=== PATIENT | male | born 1950 | race Caucasian/White ===

== ENCOUNTER → 2020-05-08 08:17 | Outpatient (CLI) | payer MEDICARE, OTHER, SELFPAY ==
--- NOTE | 2020-05-08 08:20 | ART_ITS ---
Reason For Study: Pain in right toe Procedure A bilateral lower extremity continuous wave Doppler with analog waveform analysis,segmental pressures,and ankle brachial indexes without exercise. Left Segmental Pressures Left brachial= 135mmHg. Left posterior tibial artery = >254mmHg. Left dorsalis pedis artery = >254mmHg. Left digit = 111 mmHg. The left dorsalis pedis waveforms are triphasic. The left posterior tibial artery waveforms are triphasic. Right Segmental Pressures Right brachial= 145mmHg. Right posterior tibial artery = >254mmHg. Right dorsalis pedis artery = >254mmHg. Right digit = 130 mmHg. The right dorsalis pedis waveforms are triphasic. The right posterior tibial artery waveforms are triphasic. Indices The right ankle brachial index by the dorsalis pedis is NC. The right ankle brachial index by the posterior tibial artery is NC. The right digital-brachial index is 0.90. The left ankle brachial index by the dorsalis pedis is NC. The left ankle brachial index by the posterior tibial artery is NC. The left digital-brachial index is 0.77. Interpretation Summary Triphasic Doppler waveforms are noted at ankle level bilaterally. Pulse-volume recordings appear satisfactory at all levels bilaterally. Resting ankle-brachial indices could not be determined on either side due to the non-compressibility of the vasculature. Digital-brachial indices are normal bilaterally. There is evidence of arterial calcification at ankle level bilaterally. There is no evidence of arterial occlusive diease in the lower extremities bilaterally. Ordering Physician: Keegan Goff Referring Physician: Leslye Dave Performed By: Whitney Falcon RVT
== END ==
PROVIDERS: PCP Internal Medicine; Referring Provider Podiatrist Foot & Ankle Surgery; Visit Provider Podiatrist Foot & Ankle Surgery
DX: M20.41 Other hammer toe(s) (acquired), right foot (principal); M79.674 Pain in right toe(s); I73.9 Peripheral vascular disease, unspecified
CPT/HCPCS: 93923

== ENCOUNTER → 2020-06-01 08:32 | Outpatient (CLI) | payer MEDICARE, OTHER, SELFPAY ==
--- NOTE | 2020-06-01 08:35 | EKG12_ITS ---
Test Reason : PRE OP Blood Pressure : / mmHG Vent. Rate : 069 BPM Atrial Rate : 069 BPM P-R Int : 194 ms QRS Dur : 066 ms QT Int : 378 ms P-R-T Axes : 031 007 012 degrees QTc Int : 405 ms Normal sinus rhythm Normal ECG Confirmed by ARABELLA JUSTICE, SHLOMO ([id number]), editor newspaper JESSIE NASH ([id number]) on 06/01/2020 2:23:35 PM Referred By: Keegan Goff Confirmed By:SHLOMO BELL MD
--- NOTE | 2020-06-01 08:40 | RAD_ITS ---
STUDY: X-RAY CHEST REASON FOR EXAM: Male, 69 years old. Pre-op, foot surgery. TECHNIQUE: PA and lateral views of the chest. COMPARISON: None. FINDINGS: Limited inspiratory effort. There is no acute infiltrate or mass. There is no demonstrated pleural abnormality. There is mild cardiac enlargement. Normal mediastinum and franci. Normal visualized pulmonary arteries. There is atherosclerotic calcification of the aortic arch with tortuosity. There are diffuse degenerative changes of the visualized thoracic spine. There is degenerative osteoarthritis of the bilateral shoulders. There is no demonstrated abnormality of the visualized soft tissue structures of the upper abdomen. RAD/Chest PA and Lateral IMPRESSION: Mild cardiomegaly without acute pulmonary disease. Electronically Signed: Kole Almonte DO at 22:58 EST Tel [phone], Service support ,
[2020-06-01 09:59] LABS: Absolute Lymphocyte Count 0.98 X10^3/uL (0.83-4.51); Absolute Neutrophil Count 5.2 X10^3/uL (2.0-7.7); Basophil# 0.07 X10^3/uL; Eosinophil# 0.36 X10^3/uL; Hematocrit 48.2 % (40-54); Hemoglobin 15.7 g/dL (13.0-16.5); Lymphocyte # 0.98 X10^3/ul (4.0); Lymphocyte % 13.6 % (19-41); Mean Corp Hgb Conc 32.6 g/dL (32-36); Mean Corpuscular Hgb 29.1 pg (27.0-32.0); Mean Corpuscular Volume 89.3 fL (80-94); Mean Platelet Vol. 11.4 fl (6.2-12.0); Monocyte# 0.52 X10^3/uL; Monocyte% 7.2 % (0-10); NRBC Flagged by Analyzer 0 % (0-5); Neutrophil # 5.22 X10^3/uL (2.7-7.7); Neutrophil % 72.8 % (47-70); Platelet Count 179 K/mm3 (150-450); RBC Distribution Width CV 12.5 % (11.6-14.6); RBC Distribution Width SD 40.7 fl (35.1-43.9); White Blood Count 7.2 K/mm3 (4.4-11.0)
[2020-06-01 10:27] LABS: Anion Gap 6 (5-15); BUN 33 mg/dL (7-18); BUN/Creat Ratio 17.2 RATIO (10-20); Calcium,Total 9.9 mg/dL (8.5-10.1); Chloride 106 mmol/L (98-107); Creatinine, Serum 1.92 mg/dL (0.70-1.30); EST Glomerular Filtration Rate 37 mL/min (>60); Est Glom Filt Rate - Afr Amer 45 mL/min (>60); Glucose 192 mg/dL (74-106); Potassium 5.4 mmol/L (3.5-5.1); Sodium Level 136 mmol/L (136-145)
[2020-06-01 11:00] LABS: Hemoglobin A1c 6.8 % (3.8-5.6)
[2020-06-03 11:24] LABS: Prothrombin Time (Protime)PT. 12.3 SECONDS (11.7-14.9)
[2020-06-03 11:25] LABS: Partial Thromboplast Time 23.6 Seconds (24.1-36.2)
== END ==
PROVIDERS: PCP Internal Medicine; Referring Provider Podiatrist Foot & Ankle Surgery; Visit Provider Podiatrist Foot & Ankle Surgery
DX: Z01.818 Encounter for other preprocedural examination (principal); D69.6 Thrombocytopenia, unspecified; Z79.899 Other long term (current) drug therapy; Z11.59 Encounter for screening for other viral diseases
CPT/HCPCS: 36415; 71046; 80048; 83036; 85025; 85610; 85730; 87635; 93005; C9803; U0005; U0003

== ENCOUNTER → 2021-10-20 | Outpatient (CLI) | payer MEDICARE, OTHER, SELFPAY ==
[2021-10-20 12:20] LABS: Lyme Ab Screen Interpretation REF LAB
[2021-10-20 12:51] LABS: Erythrocyte Sedimentation Rate 21 mm/hr (0-20)
[2021-10-20 12:53] LABS: Absolute Lymphocyte Count 0.51 X10^3/uL (0.83-4.51); Basophil# 0.03 X10^3/uL; Basophil% 0.3 % (0-1); Eosinophil# 0.06 X10^3/uL; Eosinophils% 0.5 % (0-5); Hematocrit 40.7 % (40-54); Hemoglobin 13.6 g/dL (13.0-16.5); Lymphocyte # 0.51 X10^3/ul (0.83-4.51); Lymphocyte % 4.5 % (19-41); Mean Corp Hgb Conc 33.4 g/dL (32-36); Mean Corpuscular Hgb 30.2 pg (27.0-32.0); Mean Corpuscular Volume 90.4 fL (80-94); Mean Platelet Vol. 12.2 fl (6.2-12.0); Monocyte# 0.74 X10^3/uL; Monocyte% 6.5 % (0-10); NRBC Flagged by Analyzer 0 % (0-5); Neutrophil # 10.04 X10^3/uL (2.7-7.7); Neutrophil % 87.8 % (47-70); POSITIVE DIFFERENTIAL YES; Platelet Count 160 K/mm3 (150-450); RBC Distribution Width CV 12.4 % (11.6-14.6); RBC Distribution Width SD 40.9 fl (35.1-43.9); White Blood Count 11.4 K/mm3 (4.4-11.0)
[2021-10-20 13:04] LABS: Differential Indicated SCAN CRITERIA MET
[2021-10-20 13:09] LABS: Hemoglobin A1c 10.4 % (3.8-5.6)
[2021-10-20 13:27] LABS: Vitamin B12 718 pg/mL (211-911); Vitamin D,25 Hydroxy 21.5 ng/mL
[2021-10-20 13:35] LABS: ALB/GLOB Ratio 0.8 RATIO (0.9-2.4); AST(SGOT) 188 U/L (15-37); Alanine Aminotransfer ALT/SGPT 292 U/L (16-61); Albumin, Serum 3.2 g/dL (3.2-5.0); Alkaline Phosphatase 420 U/L (45-117); Anion Gap 7 (5-15); BUN 69 mg/dL (7-18); BUN/Creat Ratio 26.6 RATIO (10-20); Calcium,Total 9.7 mg/dL (8.5-10.1); Chloride 107 mmol/L (98-107); Cholesterol 215 mg/dL (200); Creatinine, Serum 2.59 mg/dL (0.70-1.30); EST Glomerular Filtration Rate 26 mL/min (>60); Est Glom Filt Rate - Afr Amer 32 mL/min (>60); Globulin 4.1 g/dL (2.2-4.2); Glucose 144 mg/dL (74-106); High Density Lipoprotein 39 mg/dL; Magnesium 2.4 mg/dL (1.6-2.6); Potassium 4.9 mmol/L (3.5-5.1); Protein, Total 7.3 g/dL (6.4-8.2); Sodium Level 136 mmol/L (136-145); Thyroid Stim Hormone (TSH) 0.77 uIU/mL (0.358-3.74); Triglycerides 169 mg/dL; Very Low Density Lipoprotein 34 mg/dL (5-40)
[2021-10-22 10:12] LABS: Lyme Scn Total Ab w/Rflx Negative (Negative)
[2021-10-22 11:08] LABS: HEPATITIS B SURFACE AG Negative (Negative); Hep C Antibodies <0.1 s/co ratio (0.0-0.9); Hepatitis A IgM Antibody Negative (Negative); Hepatitis B Core AB IgM Negative (Negative)
== END | disposition home or self-care (01) ==
LOC: LAB 12:11
PROVIDERS: PCP Family Medicine; Referring Provider Family Medicine; Visit Provider Family Medicine
DX: I12.9 Hypertensive chronic kidney disease with stage 1 through stage 4 chronic kidney disease, or unspecified chronic kidney disease (principal); E11.22 Type 2 diabetes mellitus with diabetic chronic kidney disease; N18.30 Chronic kidney disease, stage 3 unspecified; R53.83 Other fatigue; E78.2 Mixed hyperlipidemia
CPT/HCPCS: 36415; 80053; 80061; 80074; 82306; 82607; 83036; 83735; 84443; 85025; 85652; 86060; 86140; 86618

== ENCOUNTER 2021-10-21 02:05 | Inpatient (IN) | payer MEDICARE, OTHER, SELFPAY ==
[2021-10-21] VITALS (11 sets, daily range): BP systolic 95–148; BP diastolic 43–77; PULSE 77–92; RESP 12–21; TEMP 36.6–37.1; O2SAT 92–99; BMI 31.8; BMI 31.3
--- NOTE | 2021-10-21 02:28 | RAD_ITS ---
INDICATION: chest pain EXAMINATION: Frontal view of the chest COMPARISON: None. FINDINGS: Frontal view of the chest was obtained. The cardiac silhouette is borderline enlarged. No confluent airspace disease. No pneumothorax. Old fracture of the right clavicle. No acute fracture identified. RAD/Chest 1 View (Portable) IMPRESSION: No acute pulmonary disease. Electronically Signed: Angel Jackson MD at 3:11 EDT ,
--- NOTE | 2021-10-21 02:28 | EKG12_ITS ---
Test Reason : CP Blood Pressure : / mmHG Vent. Rate : 085 BPM Atrial Rate : 085 BPM P-R Int : 164 ms QRS Dur : 082 ms QT Int : 332 ms P-R-T Axes : 032 -14 026 degrees QTc Int : 395 ms Normal sinus rhythm Inferior infarct , age undetermined Abnormal ECG Confirmed by MARIBEL JUSTICE, GIOVANNA ([id number]), features editor JESSIE NASH ([id number]) on 10/21/2021 11:27:25 A M Referred By: DEMETRICE Confirmed By:DREA LÓPEZ MD
--- NOTE | 2021-10-21 02:29 | ED.VIS.CHEST ---
HPI History of Present Illness Chief Complaint: Chest Pain Informant: patient and spouse/S.O. Narrative Narrative: 71-year-old male states that 3 weeks ago he began to have diffuse itching. He finished a weeks worth of steroids about a week ago. Yesterday he had dry heaves. Tonight he had dry heaves as well and the itching came back and now he has a sharp pain in his epigastrium and anterior chest wall. It hurts to take a deep breath and to push on. He notes that he is lost about 20 pounds in the past year. He states that he was at the hospital today for outpatient blood work. [facility] Medical History (Updated 10/21/21 @ 05:[address] Silverio Reis, DO) CKD (chronic kidney disease), stage III Diabetes mellitus, type 2 HLD (hyperlipidemia) HTN (hypertension) Obesity Home Medications carvedilol 25 mg tablet 25 mg PO BID 10/21/21 [History Last Taken Unknown] famotidine 20 mg tablet 20 mg PO BID 10/21/21 [History Last Taken Unknown] losartan 100 mg-hydrochlorothiazide 25 mg tablet 1 tab PO DAILY 10/21/21 [History Last Taken Unknown] pioglitazone 15 mg tablet 15 mg PO DAILY 10/21/21 [History Last Taken Unknown] rosuvastatin 10 mg tablet (Crestor) 10 mg PO DAILY 10/21/21 [History Last Taken Unknown] sitagliptin 50 mg-metformin 1,000 mg tablet (Janumet) 1 tab PO BID 10/21/21 [History Last Taken Unknown] Allergy/AdvReac Type Severity Reaction Status Date / Time No Known Allergies Allergy Verified 10/21/21 02:15 Family History (Updated 10/21/21 @ 04:[address] Claudia Feliz MD) Mother Hypertension Diabetes Macular degeneration Father Hypertension Diabetes Social History (Updated 10/21/21 @ 04:[address] Claudia Feliz MD) household members: spouse Smoking Status: Never smoker alcohol intake: never substance use type: does not use EXAM Physical Exam Const Vital Signs: 10/21/21 02:06 10/21/21 03:36 10/21/21 04:10 Temperature 98.4 F Temperature Source Temporal Pulse Rate 88 88 87 Respiratory Rate 17 21 H 15 Blood Pressure 148/77 H 138/62 H 148/63 H Blood Pressure Mean 100 87 91 Pulse Ox 99 93 98 Oxygen Delivery Method Room Air Room Air Room Air Positive well nourished and well developed General Appearance ED: well developed HEENT Reports normocephalic, head/scalp atraumatic and moist mucous membranes Eyes PERRL and EOMs intact bilaterally Neck no lymphadenopathy, supple and no JVD Chest Wall Chest Narrative: Tender to palpation anterior chest and costochondral junctions in his epigastrium. This reproduces his pain Resp normal respiratory effort and clear to auscultation bilaterally Cardio regular rate, regular rhythm and no murmurs GI normal to inspection, nondistended, normoactive bowel sounds and non-tender Palpation: soft Back/Spine no CVA tenderness and normal ROM Extremity normal to inspection General Extremety ED: Negative for edema General Extremity: Negative for edema Neuro oriented x3 and CN's II-XII intact bilaterally Sensorium / Orientation: alert Motor Exam: strength 5/5 throughout Psych mental status grossly normal Mood & Affect: Negative for depressed or tearful Skin no rashes or lesions noted and no wounds MDM MDM MDM Narrative Medical decision making narrative: White count elevated 14.6 with elevation of bilirubin at 6.6 elevation of his transaminases. Lipase 3343. Creatinine is also elevated at 2.65 with a BUN of 66. Troponin normal. CT abdomen pelvis demonstrated distended gallbladder with cholelithiasis as well as what appears to be a distal ductal stone. Patient states his pain is controlled after a dose of Toradol and Zofran. He is received IV fluids and Zosyn. Plan is admission for further care. I spoke with Dr. Koenig, . Friend, Dr. Feliz. Lab Data Attestation: I reviewed the patient's lab results. Labs: Laboratory Results - last 24 hr 10/21/21 10/21/21 02:23 02:23 WBC 14.6 H RBC 4.47 L Hgb 13.5 Hct 40.0 MCV 89.5 MCH 30.2 MCHC 33.8 RDW Std Deviation 40.3 RDW Coeff of Sreekanth 12.3 Plt Count 147 L MPV 12.5 H Immature Gran % (Auto) 0.600 Neut % (Auto) 90.7 H Lymph % (Auto) 1.9 L [place] % (Auto) 6.3 Eos % (Auto) 0.4 Baso % (Auto) 0.1 Absolute Neuts (auto) 13.2 H Absolute Lymphs (auto) 0.28 L Nucleated RBC % 0 Platelet Estimate SLT DEC Sodium 134 L Potassium 5.7 H Chloride 105 Carbon Dioxide 19.0 L Anion Gap 10 BUN 66 H Creatinine 2.65 H Estim Creat Clear Calc 25.45 Est GFR (MDRD) Af Amer 31 L Est GFR (MDRD) Non-Af 26 L BUN/Creatinine Ratio 24.9 H Glucose 181 H Calcium 9.8 Total Bilirubin 6.60 H AST 146 H ALT 269 H Alkaline Phosphatase 415 H Troponin I High Sens 4 Total Protein 7.5 Albumin 3.1 L Globulin 4.4 H Albumin/Globulin Ratio 0.7 L Lipase 3343 H Radiography Diagnostic Testing: Clinical Impression(s) from Imaging Studies Chest X-Ray 10/21/21 02:28 IMPRESSION: No acute pulmonary disease. Electronically Signed: Angel Jackson MD at 3:11 EDT , Abdomen/Pelvis CT 10/21/21 03:26 IMPRESSION: undefined EKG Initial EKG: Attestation: I personally reviewed and interpreted this EKG as follows: Comments: Normal sinus rhythm with a ventricular rate of 85 bpm no concerning features of ACS or ectopy noted Discharge Plan Dx/Rx/DC Orders Clinical Impression: Choledocholithiasis, Acute gallstone pancreatitis, Abdominal pain, Acute kidney injury, Acute costochondritis Disposition Disposition: [facility]
[2021-10-21 02:41] LABS: Absolute Lymphocyte Count 0.28 X10^3/uL (0.83-4.51); Absolute Neutrophil Count 13.2 X10^3/uL (2.0-7.7); Basophil# 0.02 X10^3/uL; Basophil% 0.1 % (0-1); Eosinophil# 0.06 X10^3/uL; Eosinophils% 0.4 % (0-5); Hemoglobin 13.5 g/dL (13.0-16.5); Lymphocyte # 0.28 X10^3/ul (0.83-4.51); Lymphocyte % 1.9 % (19-41); Mean Corp Hgb Conc 33.8 g/dL (32-36); Mean Corpuscular Hgb 30.2 pg (27.0-32.0); Mean Corpuscular Volume 89.5 fL (80-94); Mean Platelet Vol. 12.5 fl (6.2-12.0); Monocyte# 0.92 X10^3/uL; Monocyte% 6.3 % (0-10); NRBC Flagged by Analyzer 0 % (0-5); Neutrophil # 13.23 X10^3/uL (2.7-7.7); Neutrophil % 90.7 % (47-70); POSITIVE DIFFERENTIAL YES; Platelet Count 147 K/mm3 (150-450); RBC Distribution Width CV 12.3 % (11.6-14.6); RBC Distribution Width SD 40.3 fl (35.1-43.9); Red Blood Count 4.47 M/mm3 (4.6-6.2); White Blood Count 14.6 K/mm3 (4.4-11.0)
[2021-10-21 02:44] LABS: Differential Indicated SCAN CRITERIA MET
[2021-10-21 02:56] LABS: Platelet Estimate SLT DEC (ADEQ)
[2021-10-21] MEDS: Ondansetron 4 MG/2 ML Vial IV (03:03)
[2021-10-21] MEDS: Ketorolac 30 MG/ML Syringe IV (03:04)
[2021-10-21 03:19] LABS: ALB/GLOB Ratio 0.7 RATIO (0.9-2.4); AST(SGOT) 146 U/L (15-37); Alanine Aminotransfer ALT/SGPT 269 U/L (16-61); Albumin, Serum 3.1 g/dL (3.2-5.0); Alkaline Phosphatase 415 U/L (45-117); Anion Gap 10 (5-15); BUN 66 mg/dL (7-18); BUN/Creat Ratio 24.9 RATIO (10-20); Calcium,Total 9.8 mg/dL (8.5-10.1); Chloride 105 mmol/L (98-107); Creatinine, Serum 2.65 mg/dL (0.70-1.30); EST Glomerular Filtration Rate 26 mL/min (>60); Est Glom Filt Rate - Afr Amer 31 mL/min (>60); Estimated Creatinine Clearance 25.45 ml/min; Globulin 4.4 g/dL (2.2-4.2); Glucose 181 mg/dL (74-106); Lipase 3343 U/L (73-393); Potassium 5.7 mmol/L (3.5-5.1); Protein, Total 7.5 g/dL (6.4-8.2); Sodium Level 134 mmol/L (136-145); Troponin-I HS 4 pg/mL (3.0-78.0)
--- NOTE | 2021-10-21 03:26 | CT_ITS ---
EXAM: CT abdomen and pelvis without contrast HISTORY: pancreatitis TECHNIQUE: No intravenous contrast. A radiation dose optimization technique was used for this scan. COMPARISON: None. LIMITATIONS: None. LOWER CHEST: Normal. LIVER: Normal. GALLBLADDER: Distended gallbladder. Multiple gallstones. BILE DUCTS: The common bile duct is dilated measuring 1.3 cm in diameter. Possible stone at the ampulla measures 1.4 x 0.8 cm. PANCREAS: No peripancreatic inflammatory change. No pseudocyst. SPLEEN: Normal. ADRENAL GLANDS: Normal. KIDNEYS/URETERS/BLADDER: Cysts bilaterally. 1 mm nonobstructing left renal stone. No obstructing ureteral stones or hydronephrosis. AORTA: Normal caliber. BOWEL/MESENTERY: Diverticula are without evidence of diverticulitis. No small bowel obstruction. APPENDIX: Normal. PERITONEUM: Normal. REPRODUCTIVE ORGANS: Normal. BONES/SOFT TISSUES: No acute fracture. OTHER: None. CONCLUSION: Gallstones and gallbladder distention. Ultrasound is recommended for possible acute cholecystitis. Dilated common bile duct with a possible stone at the ampulla. No CT evidence of acute pancreatitis. Electronically Signed: Angel Jackson MD at 4:44 EDT , CT/Abdomen/Pelvis without Cont IMPRESSION: undefined
[2021-10-21] MEDS: 0.9% Normal Saline 1,000 ML 999 ML IV (03:41)
[2021-10-21] MEDS: 0.9% Normal Saline 1,000 ML 200 ML IV (04:58)
--- NOTE | 2021-10-21 05:25 | PCM.HP.STD ---
HPI - General General Date of Admission: 10/21/21 Date of Service: 10/21/21 Chief Complaint: Epigastric pain, N/dry heaves, pruritis HPI Narrative The patient is a 71 y/o M w/ PMHx: Hx Pruritis intermittently, Diabetes mellitus type II, HTN, HLD, GERD, CKD stage III unclear subtype, who presents to the [facility] ED on 10/21/21 with history of diffuse itching which started 3 weeks prior to current presentation with evaluation with initiation of steroids which he completed approximately week ago once onset of dry heaves as well as sharp epigastric and anterior chest wall pain, rated currently 3-4/10 in severity, was 6/10 prior with difficulty taking a deep breath as well with initial onset as approximate 20 pound weight loss over the past year prompting ED evaluation. Work-up in the ED included T 98.4, heart rate 88, BP 130/62, respiratory rate 21, 93% on room air, CBC with WBC 14.6, bun 13.5, platelets 147 with left shift and lymphopenia, CMP with sodium 134, potassium 5.7 noted to be moderately hemolyzed, carbon oxide 19, BUN/creatinine 66/2.65, glucose 181, total bilirubin six-point ST/ALT 146/269, alk phos 415, troponin 4, lipase 3343, chest x-ray with no acute cardiopulmonary finding, CT abdomen and pelvis w/ gallstones and gallbladder distention with recommended ultrasound for acute cholecystitis, dilated common bile duct with possible stone at the ampulla, no CT evidence of acute pancreatitis. Most recent prior labs noted 04/05/21 with BUN/Cr 54/2.31, T bili 0.9, AST/ALT 20/47, alk phos 227, 04/20/21 GB US obtained secondary to mild LFT elevation and pruritis at that time w/ distended GB, mobile gallstones and sludge with follow-up outpatient with general surgery with deferred intervention at that time given no marked bili or LFT elevation thus not obstructive at that time, 03/26/21 hepatitis panel with NR A, B, C panel, 03/26/21 CMP w/ BUN/Cr 50/2.01, T bili 1.2, AST/ALT 41/135, Alk phos 376. In the ED patient administered zosyn, zofran, toradol, IV NS. ED discussed case with General surgery who requested medical admission and GI per their request for ERCP concurrently with planned OR on day of presentation per ED report. [facility] Medical History (Updated 10/21/21 @ 05:[address] Claudia Feliz MD) CKD (chronic kidney disease), stage III Diabetes mellitus, type 2 HLD (hyperlipidemia) HTN (hypertension) Obesity Home Medications carvedilol 25 mg tablet 25 mg PO BID 10/21/21 [History Last Taken Unknown] famotidine 20 mg tablet 20 mg PO BID 10/21/21 [History Last Taken Unknown] losartan 100 mg-hydrochlorothiazide 25 mg tablet 1 tab PO DAILY 10/21/21 [History Last Taken Unknown] pioglitazone 15 mg tablet 15 mg PO DAILY 10/21/21 [History Last Taken Unknown] rosuvastatin 10 mg tablet (Crestor) 10 mg PO DAILY 10/21/21 [History Last Taken Unknown] sitagliptin 50 mg-metformin 1,000 mg tablet (Janumet) 1 tab PO BID 10/21/21 [History Last Taken Unknown] Allergy/AdvReac Type Severity Reaction Status Date / Time No Known Allergies Allergy Verified 10/21/21 02:15 Family History (Updated 10/21/21 @ 04:[address] Claudia Feliz MD) Mother Hypertension Diabetes Macular degeneration Father Hypertension Diabetes Surgical History (Updated 10/21/21 @ 06:[address] Claudia Feliz MD) No history of previous surgery Social History (Updated 10/21/21 @ 04:[address] Cluadia Feliz MD) household members: spouse Smoking Status: Never smoker alcohol intake: never substance use type: does not use ROS ROS Narrative Admission Review of Systems: CONSTITUTIONAL: No weight loss, fever, chills, + weakness or fatigue. HEENT: Eyes: No visual loss, blurred vision, double vision or yellow sclerae. Ears, Nose, Throat: No hearing loss, sneezing, congestion, runny nose or sore throat. SKIN: + generalized itching. CARDIOVASCULAR: + chest pain, No palpitations, edema, orthopnea, syncopal events. RESPIRATORY: No shortness of breath, cough or sputum, wheezing, hemoptysis. GASTROINTESTINAL: + anorexia, nausea, dry heaves, epigastric pain, No diarrhea, melena, BRBPR. GENITOURINARY: No dysuria, frequency, urgency or retention. NEUROLOGICAL: No headache, dizziness, syncope, paralysis, ataxia, numbness or tingling in the extremities, focal weakness, change in bowel or bladder control, seizure. MUSCULOSKELETAL: No muscle, back pain, joint pain or stiffness. HEMATOLOGIC: No anemia, bleeding or bruising. LYMPHATICS: No enlarged nodes. No history of splenectomy. PSYCHIATRIC: No history of depression or anxiety. ENDOCRINOLOGIC: No reports of sweating, cold or heat intolerance. No polyuria or polydipsia. ALLERGIES: No history of asthma, hives, eczema or rhinitis. Vital Signs Vital Signs Vital Signs: 10/21/21 02:06 10/21/21 03:36 10/21/21 04:10 Temperature 98.4 F Temperature Source Temporal Pulse Rate 88 88 87 Respiratory Rate 17 21 H 15 Blood Pressure 148/77 H 138/62 H 148/63 H Blood Pressure Mean 100 87 91 Pulse Ox 99 93 98 Oxygen Delivery Method Room Air Room Air Room Air Weight Weight: 209 lb 9.6 oz Body Mass Index (BMI) 31.8 Physical Exam Narrative Physical Examination: General: Awake, alert, oriented x 3 and cooperative, laying in the ED bed, fatigued, notes pain is lessening, still paretic generally. Skin: Normal color, normal turgor, no icterus, no cyanosis. HEENT: AT/NC, EOMI, PERRLA, moderately dry MM, no carotid bruits or JVD noted. Lungs: CTA bilaterally, moderate effort, mild decrease BL bases, no rales, ronchi or wheezing. Heart: Currently regular rate and rhythm; no gallop, rub audible. Abdomen: Soft, mild epigastric discomfort but no rebound or guarding, no significant right upper quadrant pain/rebound, ND, distant normal BS, no obvious evidence of HSM. Extremities: No cyanosis, clubbing, or edema. Neurological: Patient awake, alert, oriented as noted, cognitive function intact; pupils equally reactive to light and accommodation, cranial nerves II-XII grossly normal, moving all 4 extremities, no focal deficits, strength mildly to moderately globally Yuliya secondary to acute presentation. Psychiatric: Affect appears fatigued otherwise normal, no acute evidence of depressive or anxiety feelings. Results Lab / Micro Data Result Diagrams: 10/21/21 02:23 10/21/21 02:23 Labs: Laboratory Results - last 24 hr 10/21/21 02:23: WBC 14.6 H, RBC 4.47 L, Hgb 13.5, Hct 40.0, MCV 89.5, MCH 30.2, MCHC 33.8, RDW Std Deviation 40.3, RDW Coeff of Sreekanth 12.3, Plt Count 147 L, MPV 12.5 H, Immature Gran % (Auto) 0.600, Neut % (Auto) 90.7 H, Lymph % (Auto) 1.9 L, [place] % (Auto) 6.3, Eos % (Auto) 0.4, Baso % (Auto) 0.1, Absolute Neuts (auto) 13.2 H, Absolute Lymphs (auto) 0.28 L, Nucleated RBC % 0, Platelet Estimate SLT 10/21/21 02:23: Sodium 134 L, Potassium 5.7 H, Chloride 105, Carbon Dioxide 19.0 L, Anion Gap 10, BUN 66 H, Creatinine 2.65 H, Estim Creat Clear Calc 25.45, Est GFR (MDRD) Af Amer 31 L, Est GFR (MDRD) Non-Af 26 L, BUN/Creatinine Ratio 24.9 H, Glucose 181 H, Calcium 9.8, Total Bilirubin 6.60 H, AST 146 H, ALT 269 H, Alkaline Phosphatase 415 H, Troponin I High Sens 4, Total Protein 7.5, Albumin 3.1 L, Globulin 4.4 H, Albumin/Globulin Ratio 0.7 L, Lipase 3343 H Radiology Impression Chest X-Ray 10/21/21 02:28 IMPRESSION: No acute pulmonary disease. Electronically Signed: Angel Jackson MD at 3:11 EDT , Abdomen/Pelvis CT 10/21/21 03:26 IMPRESSION: undefined Assessment & Plan Assessment/Plan (1) Choledocholithiasis: (2) Acute gallstone pancreatitis: PLAN: Plan The patient is a 71 y/o M w/ PMHx: Hx Pruritis intermittently, Diabetes mellitus type II, HTN, HLD, GERD, CKD stage III unclear subtype, who presents to the [facility] ED on 10/21/21 with history of diffuse itching which started 3 weeks prior to current presentation with evaluation with initiation of steroids which he completed approximately week ago once onset of dry heaves as well as sharp epigastric and anterior chest wall pain with difficulty taking a deep breath as well as approximate 20 pound weight loss over the past year prompting ED evaluation. #1. Acute pancreatitis with hyperbilirubinemia and transaminitis, obstructive pattern, suspected secondary to Acute Choledocholithiasis: Will admit to [facility], maintain on IVFs, will maintain on zosyn until Surgery evaluation, NPO, PPI, IV/po pain control, trend lipase, CMP. General surgery and GI consulted and pending. #2. CKD stage III, unclear subtype with mild renal insufficiency likely secondary to #1: Admission BUN/Cr 66/2.65, prior baseline creatinine 2-2.3, will judiciously hydrate and trend, if increases further will hold nephrotoxic regimen. #3. Diabetes mellitus type II: Hold oral home regimen, continue home insulin regimen, ADA diet, accu checks w/ ISS. Outpatient 10/20/21 HgbA1c 10.4%. #4. Hypertension: We will continue patient home Coreg regimen, losartan/hydrochlorothiazide given renal function near chronic level; however, if rises would hold, PRN hydralazine. #5. Hyperlipidemia: Hold statin given acute presentation #1. #6. DVT prophylaxis: SCDs, coags requested given liver dysfunction, hold on chemoprophylaxis. Charges/Coding Visit Charges Inpatient E&M: 76295 Init Hosp L3
[2021-10-21 06:17] LABS: Prothrombin Time (Protime)PT. 13.1 SECONDS (11.7-14.9)
[2021-10-21 06:18] LABS: Partial Thromboplast Time 28.1 Seconds (24.1-36.2)
[2021-10-21] MEDS: 0.9% Normal Saline 1,000 ML 150 ML IV ×3 (06:40→23:53)
[2021-10-21] MEDS: Insulin Lispro 100 UNIT/ML INSULN.PEN SC (06:40)
[2021-10-21 06:41] LABS: Bedside Glucose 173 mg/dL (74-106)
[2021-10-21] MEDS: Losartan Potassium 100 MG Tablet PO (09:31)
[2021-10-21] MEDS: Atorvastatin Calcium 20 MG Tablet PO (09:31)
[2021-10-21] MEDS: hydroCHLOROthiazide 25 MG Tablet PO (09:31)
[2021-10-21] MEDS: Carvedilol 25 MG Tablet PO (09:31)
[2021-10-21 11:10] LABS: Bedside Glucose 149 mg/dL (74-106)
--- NOTE | 2021-10-21 11:43 | HP.PCM_ITS ---
[facility] - General General Date of Admission: 10/21/21 Chief Complaint: Epigastric pain, N/dry heaves, pruritis [facility] Narrative HERLINDA SMITH, is a 71 M who presents to [facility] with acute onset chest pain and associated nausea and vomiting. He states this began suddenly yesterday and has never had an episode like it. However, he does admit to being told that he has gallstones and a elective cholecystectomy was previously offered. This was found during investigation for whole body itching that suddenly presented last year without apparent cause. He relates that they did confirm at the time of discovery that there is no evidence of blockage of his biliary tree and nothing further was done. This itching has never been associated with a rash and seem to spontaneously remit. Yet Mr. Smith states that this itching returned the first week of September and with greater intensity yesterday. He thus presented to the emergency department where he underwent work-up with CT imaging and laboratories. CT imaging was consistent with a finding of choledocholithiasis and possible cholecystitis. Laboratories confirmed this diagnosis as well as suggested a condition of gallstone pancreatitis. Surgery, gastroenterology, and the hospitalist service were all consulted. Patient denies any prior surgical history. He does confirm a history of diabetes mellitus, chronic kidney disease, hyperlipidemia, hypertension [facility] Medical History (Updated 10/21/21 @ 05:[address] Claudia Feliz MD) CKD (chronic kidney disease), stage III Diabetes mellitus, type 2 HLD (hyperlipidemia) HTN (hypertension) Obesity Home Medications carvedilol 25 mg tablet 25 mg PO BID 10/21/21 [History Last Taken Unknown] famotidine 20 mg tablet 20 mg PO BID 10/21/21 [History Last Taken Unknown] losartan 100 mg-hydrochlorothiazide 25 mg tablet 1 tab PO DAILY 10/21/21 [History Last Taken Unknown] pioglitazone 15 mg tablet 15 mg PO DAILY 10/21/21 [History Last Taken Unknown] rosuvastatin 10 mg tablet (Crestor) 10 mg PO DAILY 10/21/21 [History Last Taken Unknown] sitagliptin 50 mg-metformin 1,000 mg tablet (Janumet) 1 tab PO BID 10/21/21 [History Last Taken Unknown] Allergy/AdvReac Type Severity Reaction Status Date / Time No Known Allergies Allergy Verified 10/21/21 02:15 Family History (Updated 10/21/21 @ 04:[address] Claudia Feliz MD) Mother Hypertension Diabetes Macular degeneration Father Hypertension Diabetes Surgical History (Updated 10/21/21 @ 06:[address] Claudia Feliz MD) No history of previous surgery Social History (Updated 10/21/21 @ 04:[address] Claudia Feliz MD) household members: spouse Smoking Status: Never smoker alcohol intake: never substance use type: does not use Vital Signs Vital Signs Vital Signs: 10/21/21 02:06 10/21/21 03:36 10/21/21 04:10 Temperature 98.4 F Temperature Source Temporal Pulse Rate 88 88 87 Respiratory Rate 17 21 H 15 Respiratory Effort Respiratory Depth Respiratory Pattern Blood Pressure 148/77 H 138/62 H 148/63 H Blood Pressure Mean 100 87 91 Blood Pressure Source Blood Pressure Position Blood Pressure Location Pulse Ox 99 93 98 Oxygen Delivery Method Room Air Room Air Room Air 10/21/21 03:30 10/21/21 06:10 10/21/21 06:31 Temperature 97.9 F 98.8 F Temperature Source Temporal Oral Pulse Rate 78 80 Respiratory Rate 15 18 Respiratory Effort Normal Non-Labored Respiratory Depth Respiratory Pattern Blood Pressure 130/71 H 130/74 H Blood Pressure Mean 90 92 Blood Pressure Source Monitor Blood Pressure Position Semi-Fowlers Blood Pressure Location Right Arm Pulse Ox 95 97 Oxygen Delivery Method Room Air Room Air 10/21/21 06:46 10/21/21 09:23 10/21/21 09:30 Temperature 98.5 F Temperature Source Oral Pulse Rate 77 Respiratory Rate 12 Respiratory Effort Normal Non-Labored Normal Non-Labored Respiratory Depth Normal Normal Respiratory Pattern Normal Normal Blood Pressure 139/70 H Blood Pressure Mean 93 Blood Pressure Source Monitor Blood Pressure Position Semi-Fowlers Blood Pressure Location Left Arm Pulse Ox 99 Oxygen Delivery Method Room Air Room Air Room Air Weight Weight: 205 lb 14.588 oz Body Mass Index (BMI) 31.3 Physical Exam Const alert, oriented x3 and no apparent distress General Appearance: cooperative GI GI Narrative: Obese, no scars, minimally distended. Soft, minimally tender (patient describes this as discomfort) in the right upper quadrant. Negative Hughes sign Results Lab / Micro Data Result Diagrams: 10/21/21 02:23 10/21/21 02:23 Labs: Laboratory Results - last 24 hr 10/21/21 02:23: WBC 14.6 H, RBC 4.47 L, Hgb 13.5, Hct 40.0, MCV 89.5, MCH 30.2, MCHC 33.8, RDW Std Deviation 40.3, RDW Coeff of Sreekanth 12.3, Plt Count 147 L, MPV 12.5 H, Immature Gran % (Auto) 0.600, Neut % (Auto) 90.7 H, Lymph % (Auto) 1.9 L , [place] % (Auto) 6.3, Eos % (Auto) 0.4, Baso % (Auto) 0.1, Absolute Neuts (auto) 13.2 H, Absolute Lymphs (auto) 0.28 L, Nucleated RBC % 0, Platelet Estimate SLT 10/21/21 02:23: Sodium 134 L, Potassium 5.7 H, Chloride 105, Carbon Dioxide 19.0 L, Anion Gap 10, BUN 66 H, Creatinine 2.65 H, Estim Creat Clear Calc 25.45, Est GFR (MDRD) Af Amer 31 L, Est GFR (MDRD) Non-Af 26 L, BUN/Creatinine Ratio 24.9 H , Glucose 181 H, Calcium 9.8, Total Bilirubin 6.60 H, AST 146 H, ALT 269 H, A lkaline Phosphatase 415 H, Troponin I High Sens 4, Total Protein 7.5, Albumin 3.1 L, Globulin 4.4 H, Albumin/Globulin Ratio 0.7 L, Lipase 3343 H 10/21/21 02:23: PT 13.1, INR 1.0, APTT 28.1 10/21/21 06:34: POC Glucose 173 H 10/21/21 11:04: POC Glucose 149 H Radiology Impression Chest X-Ray 10/21/21 02:28 IMPRESSION: No acute pulmonary disease. Electronically Signed: Angel Jackson MD at 3:11 EDT , Abdomen/Pelvis CT 10/21/21 03:26 IMPRESSION: undefined Assessment & Plan Assessment/Plan (1) Choledocholithiasis: PLAN: Patient with signs and symptoms of choledocholithiasis given elevation of LFTs, hyperbilirubinemia, and CT showing stone impacted in the distal common bile duct. Gastroenterology has been consulted. After conference with Dr. Osman, he plans to perform ERCP later today to relieve this obstruction. Agree with empiric Zosyn coverage while stone remains in place. (2) Acute gallstone pancreatitis: PLAN: Evidence of pancreatitis with elevation of lipase, but no signs of pancreatic inflammation on CT imaging. As above, GI plans to perform urgent ERCP later today to relieve obstruction. Still, given this and finding of choledocholithiasis, I have recommended same admission cholecystectomy to patient. I explained the rationale behind this as an attempt at minimizing his chances for recurrent pancreatitis given the risk of recurrence with persistent cholelithiasis. Patient expresses understanding of this information and wishes to proceed as described. ? Please keep patient n.p.o. past midnight ? Plan for laparoscopic cholecystectomy with possible intraoperative cholangiogram tomorrow Charges/Coding Visit Charges Inpatient E&M: 74757 Init Hosp L2
--- NOTE | 2021-10-21 11:55 | CASEMGMT ---
RN BRAD Face to Face with patient for initial transition planning/care coordination assessment. RN CM introduced self and role at [facility]. Patient lying in bed, alert and oriented, at bedside. Patient willing to participate in assessment and is able to answer all questions appropriately. Care providers, pharmacy, and demographics verified. Patient wishes to discharge home, denies need for home health at this time. Patient states he has no further needs or concerns at this time. CM to follow for discharge planning needs that may arise. PCP: Jose Specialists: none Preferred Pharmacy: [facility] retail at discharge Insurance: [facility], MMO Prescription Benefit: yes Living Will/HPOA: yes, Yue Smith LNOK: Living Arrangements: Patient lives with in 2 story home. Patient is independent and able to ambulate stairs. Transportation: self, DME/HHC: Patient has raised toilet at home. No previous HHC Disposition Plan: Patient to discharge home with family support and follow-up plans in place. Whitney MAY, RN, CM
[2021-10-21] MEDS: 0.9% Saline Lock 10 ML Syringe IV (12:20)
[2021-10-21] MEDS: Sodium Polystyrene Sulfonate 15 GM/60 ML UDC 30 GM PO (12:20)
[2021-10-21] MEDS: Furosemide 20 MG/2 ML VIAL IV (12:20)
[2021-10-21] MEDS: Albuterol 2.5 MG/3 ML VIAL.NEB. INHALATION (13:20)
[2021-10-21 15:12] LABS: ALB/GLOB Ratio 0.7 RATIO (0.9-2.4); AST(SGOT) 99 U/L (15-37); Alanine Aminotransfer ALT/SGPT 225 U/L (16-61); Albumin, Serum 2.9 g/dL (3.2-5.0); Alkaline Phosphatase 385 U/L (45-117); Anion Gap 6 (5-15); BUN 54 mg/dL (7-18); BUN/Creat Ratio 20.2 RATIO (10-20); Calcium,Total 9.5 mg/dL (8.5-10.1); Chloride 110 mmol/L (98-107); Creatinine, Serum 2.67 mg/dL (0.70-1.30); EST Glomerular Filtration Rate 25 mL/min (>60); Est Glom Filt Rate - Afr Amer 31 mL/min (>60); Estimated Creatinine Clearance 25.26 ml/min; Globulin 3.9 g/dL (2.2-4.2); Glucose 202 mg/dL (74-106); Protein, Total 6.8 g/dL (6.4-8.2); Sodium Level 137 mmol/L (136-145)
[2021-10-21 17:01] LABS: Bedside Glucose 202 mg/dL (74-106)
--- NOTE | 2021-10-21 18:07 | CON.PCM_ITS ---
Assessment & Plan Assessment/Plan (1) Choledocholithiasis: PLAN: Patient should undergo an ERCP for evaluation of his hepatobiliary system. He was explained alternatives, risk, benefits including outstanding bleeding, infection, sepsis and perforation. He will have an ASA of 3. (2) Acute gallstone pancreatitis: HPI Consult Data Date of Consult: 10/23/21 HPI Narrative Reason for Consultation: jaundice HPI Narrative: HERLINDA GARCIA, is a 71 M who presents with itching and abdominal pain. About 3 weeks ago he began to have diffuse itching.? He finished a weeks worth of steroids about a week ago.? Yesterday he had dry heaves.? Tonight he had dry heaves as well and the itching came back and now he has a sharp pain in his epigastrium and anterior chest wall.? It hurts to take a deep breath and to push on.? He notes that he is lost about 20 pounds in the past year.? He states that he was at the hospital today for outpatient blood work. Blood work was consistent with acute choledocholithiasis and acute pancreatitis. He had imaging that showed a stone in the distal common bile duct. It also showed diffuse pancreatitis mostly involving. He is not drinking alcohol. He has no problems with hypertriglyceridemia and has no family history of pancreati tis. His weight is stable. He does not have any other autoimmune disease except for diabetes. [facility] Medical History (Updated 10/21/21 @ 05:[address] Claudia Feliz MD) CKD (chronic kidney disease), stage III Diabetes mellitus, type 2 HLD (hyperlipidemia) HTN (hypertension) Obesity Home Medications carvedilol 25 mg tablet 25 mg PO BID 10/21/21 [History Last Taken Unknown] famotidine 20 mg tablet 20 mg PO BID 10/21/21 [History Last Taken Unknown] losartan 100 mg-hydrochlorothiazide 25 mg tablet 1 tab PO DAILY 10/21/21 [History Last Taken Unknown] pioglitazone 15 mg tablet 15 mg PO DAILY 10/21/21 [History Last Taken Unknown] rosuvastatin 10 mg tablet (Crestor) 10 mg PO DAILY 10/21/21 [History Last Taken Unknown] sitagliptin 50 mg-metformin 1,000 mg tablet (Janumet) 1 tab PO BID 10/21/21 [History Last Taken Unknown] Allergy/AdvReac Type Severity Reaction Status Date / Time No Known Allergies Allergy Verified 10/21/21 02:15 Family History (Updated 10/21/21 @ 04:[address] Claudia Feliz MD) Mother Hypertension Diabetes Macular degeneration Father Hypertension Diabetes Surgical History (Updated 10/21/21 @ 06:[address] Claudia Feliz MD) No history of previous surgery Social History (Updated 10/21/21 @ 04:[address] Claudia Feliz MD) household members: spouse Smoking Status: Never smoker alcohol intake: never substance use type: does not use ROS ROS Narrative Admission Review of Systems: CONSTITUTIONAL: No weight loss, fever, chills, + weakness or fatigue. HEENT: Eyes: No visual loss, blurred vision, double vision or yellow sclerae. Ears, Nose, Throat: No hearing loss, sneezing, congestion, runny nose or sore throat. SKIN: + generalized itching. CARDIOVASCULAR: + chest pain, No palpitations, edema, orthopnea, syncopal events. RESPIRATORY: No shortness of breath, cough or sputum, wheezing, hemoptysis. GASTROINTESTINAL: + anorexia, nausea, dry heaves, epigastric pain, No diarrhea, melena, BRBPR. GENITOURINARY: No dysuria, frequency, urgency or retention. NEUROLOGICAL: No headache, dizziness, syncope, paralysis, ataxia, numbness or tingling in the extremities, focal weakness, change in bowel or bladder control, seizure. MUSCULOSKELETAL: No muscle, back pain, joint pain or stiffness. HEMATOLOGIC: No anemia, bleeding or bruising. LYMPHATICS: No enlarged nodes. No history of splenectomy. PSYCHIATRIC: No history of depression or anxiety. ENDOCRINOLOGIC: No reports of sweating, cold or heat intolerance. No polyuria or polydipsia. ALLERGIES: No history of asthma, hives, eczema or rhinitis. Lab / Micro Data Result Diagrams: 10/23/21 05:27 10/23/21 05:27 Labs: Laboratory Results - last 24 hr 10/21/21 02:23: WBC 14.6 H, RBC 4.47 L, Hgb 13.5, Hct 40.0, MCV 89.5, MCH 30.2, MCHC 33.8, RDW Std Deviation 40.3, RDW Coeff of Sreekanth 12.3, Plt Count 147 L, MPV 12.5 H, Immature Gran % (Auto) 0.600, Neut % (Auto) 90.7 H, Lymph % (Auto) 1.9 L , [place] % (Auto) 6.3, Eos % (Auto) 0.4, Baso % (Auto) 0.1, Absolute Neuts (auto) 13.2 H, Absolute Lymphs (auto) 0.28 L, Nucleated RBC % 0, Platelet Estimate SLT 10/21/21 02:23: Sodium 134 L, Potassium 5.7 H, Chloride 105, Carbon Dioxide 19.0 L, Anion Gap 10, BUN 66 H, Creatinine 2.65 H, Estim Creat Clear Calc 25.45, Est GFR (MDRD) Af Amer 31 L, Est GFR (MDRD) Non-Af 26 L, BUN/Creatinine Ratio 24.9 H , Glucose 181 H, Calcium 9.8, Total Bilirubin 6.60 H, AST 146 H, ALT 269 H, Alkaline Phosphatase 415 H, Troponin I High Sens 4, Total Protein 7.5, Albumin 3.1 L, Globulin 4.4 H, Albumin/Globulin Ratio 0.7 L, Lipase 3343 H 10/21/21 02:23: PT 13.1, INR 1.0, APTT 28.1 10/21/21 06:34: POC Glucose 173 H 10/21/21 11:04: POC Glucose 149 H 10/21/21 14:45: Sodium 137, Potassium 5.0, Chloride 110 H, Carbon Dioxide 21.0, Anion Gap 6, BUN 54 H, Creatinine 2.67 H, Estim Creat Clear Calc 25.26, Est GFR (MDRD) Af Amer 31 L, Est GFR (MDRD) Non-Af 25 L, BUN/Creatinine Ratio 20.2 H, Glucose 202 H, Calcium 9.5, Total Bilirubin 6.60 H, AST 99 H, ALT 225 H, A lkaline Phosphatase 385 H, Total Protein 6.8, Albumin 2.9 L, Globulin 3.9, Albumin/Globulin Ratio 0.7 L 10/21/21 16:55: POC Glucose 202 H Radiology Impression Chest X-Ray 10/21/21 02:28 IMPRESSION: No acute pulmonary disease. Electronically Signed: Angel Jackson MD at 3:11 EDT , Abdomen/Pelvis CT 10/21/21 03:26 IMPRESSION: undefined Charges/Coding Visit Charges Inpatient E&M: 52552 Init Hosp L2
--- NOTE | 2021-10-21 19:38 | PCM.HOSP.N ---
Hospitalist Note Patient was seen and examined today briefly, his ERCP was postponed due to an elevated potassium, patient was given Kayexalate today, repeat potassium this afternoon was 5. I have decided to administer another dose of Kayexalate at this time, labs will be rechecked tomorrow. I talked briefly with gastroenterology about his care.
[2021-10-21] MEDS: Sodium Polystyrene Sulfonate 15 GM/60 ML UDC PO (20:03)
[2021-10-22] VITALS (22 sets, daily range): BP systolic 106–143; BP diastolic 51–93; PULSE 62–131; RESP 14–20; TEMP 36.2–36.8; O2SAT 78–99; BMI 31.0
[2021-10-22] MEDS: Insulin Lispro 100 UNIT/ML INSULN.PEN SC (00:01)
[2021-10-22 00:11] LABS: Bedside Glucose 198 mg/dL (74-106)
[2021-10-22 06:11] LABS: Bedside Glucose 125 mg/dL (74-106)
[2021-10-22 06:40] LABS: Absolute Lymphocyte Count 0.38 X10^3/uL (0.83-4.51); Absolute Neutrophil Count 8.9 X10^3/uL (2.0-7.7); Basophil# 0.01 X10^3/uL; Basophil% 0.1 % (0-1); Eosinophil# 0.05 X10^3/uL; Eosinophils% 0.5 % (0-5); Hematocrit 34.2 % (40-54); Lymphocyte # 0.38 X10^3/ul (0.83-4.51); Lymphocyte % 3.8 % (19-41); Mean Corp Hgb Conc 32.2 g/dL (32-36); Mean Corpuscular Hgb 29.8 pg (27.0-32.0); Mean Corpuscular Volume 92.7 fL (80-94); Mean Platelet Vol. 11.7 fl (6.2-12.0); Monocyte# 0.62 X10^3/uL; Monocyte% 6.2 % (0-10); NRBC Flagged by Analyzer 0 % (0-5); Neutrophil # 8.85 X10^3/uL (2.7-7.7); Neutrophil % 88.9 % (47-70); POSITIVE DIFFERENTIAL YES; Platelet Count 119 K/mm3 (150-450); RBC Distribution Width CV 12.7 % (11.6-14.6); RBC Distribution Width SD 43.1 fl (35.1-43.9); Red Blood Count 3.69 M/mm3 (4.6-6.2)
[2021-10-22 06:41] LABS: Differential Indicated SCAN CRITERIA MET
[2021-10-22 07:07] LABS: ALB/GLOB Ratio 0.7 RATIO (0.9-2.4); AST(SGOT) 96 U/L (15-37); Alanine Aminotransfer ALT/SGPT 187 U/L (16-61); Albumin, Serum 2.3 g/dL (3.2-5.0); Alkaline Phosphatase 303 U/L (45-117); Anion Gap 7 (5-15); BUN 49 mg/dL (7-18); BUN/Creat Ratio 19.1 RATIO (10-20); Calcium,Total 8.5 mg/dL (8.5-10.1); Chloride 111 mmol/L (98-107); Creatinine, Serum 2.56 mg/dL (0.70-1.30); EST Glomerular Filtration Rate 27 mL/min (>60); Est Glom Filt Rate - Afr Amer 32 mL/min (>60); Estimated Creatinine Clearance 26.35 ml/min; Globulin 3.4 g/dL (2.2-4.2); Glucose 128 mg/dL (74-106); Lipase 2075 U/L (73-393); Potassium 3.3 mmol/L (3.5-5.1); Protein, Total 5.7 g/dL (6.4-8.2); Sodium Level 142 mmol/L (136-145)
[2021-10-22] MEDS: 0.9% Normal Saline 1,000 ML 150 ML IV ×2 (07:08→19:00)
[2021-10-22] MEDS: Potassium Chloride 10mEq/100mL 10 MEQ/100 ML IV.SOLN. 100 MEQ IV BOLUS ×2 (08:51→10:56)
--- NOTE | 2021-10-22 09:03 | PN.SURG_ITS ---
Subjective Subjective Patient was seen and examined during AM rounds and then preoperatively. He denies any worsening of his pain. He does still complain of itching. He denies any questions related to today's procedure. Objective Data Objective Data Vital Signs: Vital Signs Temp Pulse Resp BP Pulse Ox O2 Del Method 98.2 F 62 18 123/51 H 96 Room Air 10/22/21 08:25 10/22/21 08:25 10/22/21 08:25 10/22/21 08:25 10/22/21 08:25 10/22/21 08:25 Oxygen Delivery Method Room Air Weight: 204 lb 2.369 oz Body Mass Index (BMI) 31.3 Intake & Output: Intake and Output for Last 24 Hours 10/20/21 10/21/21 10/22/21 23:59 23:59 23:59 Intake Total 3713.33 / 3953.33 1400 / 1400 Output Total 1400 / 1400 Balance 2313.33 / 2553.33 1400 / 1400 Lab / Micro Data Result Diagrams: 10/22/21 06:18 10/22/21 06:18 Labs: Laboratory Results - last 24 hr 10/21/21 11:04: POC Glucose 149 H 10/21/21 14:45: Sodium 137, Potassium 5.0, Chloride 110 H, Carbon Dioxide 21.0, Anion Gap 6, BUN 54 H, Creatinine 2.67 H, Estim Creat Clear Calc 25.26, Est GFR (MDRD) Af Amer 31 L, Est GFR (MDRD) Non-Af 25 L, BUN/Creatinine Ratio 20.2 H, Glucose 202 H, Calcium 9.5, Total Bilirubin 6.60 H, AST 99 H, ALT 225 H, Alkaline Phosphatase 385 H, Total Protein 6.8, Albumin 2.9 L, Globulin 3.9, Albumin/Globulin Ratio 0.7 L 10/21/21 16:55: POC Glucose 202 H 10/22/21 00:00: POC Glucose 198 H 10/22/21 06:01: POC Glucose 125 H 10/22/21 06:18: WBC 10.0, RBC 3.69 L, Hgb 11.0 L, Hct 34.2 L, MCV 92.7, MCH 2 9.8, MCHC 32.2, RDW Std Deviation 43.1, RDW Coeff of Sreekanth 12.7, Plt Count 119 L, MPV 11.7, Immature Gran % (Auto) 0.500, Neut % (Auto) 88.9 H, Lymph % (Auto) 3.8 L, [place] % (Auto) 6.2, Eos % (Auto) 0.5, Baso % (Auto) 0.1, Absolute Neuts (auto) 8.9 H, Absolute Lymphs (auto) 0.38 L, Nucleated RBC % 0 10/22/21 06:18: Sodium 142, Potassium 3.3 L, Chloride 111 H, Carbon Dioxide 24.0, Anion Gap 7, BUN 49 H, Creatinine 2.56 H, Estim Creat Clear Calc 26.35, Est GFR (MDRD) Af Amer 32 L, Est GFR (MDRD) Non-Af 27 L, BUN/Creatinine Ratio 19.1, Glucose 128 H, Calcium 8.5, Total Bilirubin 5.30 H, AST 96 H, ALT 187 H, Alkaline Phosphatase 303 H, Total Protein 5.7 L, Albumin 2.3 L, Globulin 3.4, Albumin/Globulin Ratio 0.7 L, Lipase 2075 H Physical Exam Const oriented x3 Resp normal respiratory effort GI GI Narrative: Nondistended, soft, mildly tender to palpation across the epigastrium Extremity Extremity Narrative: Well-appearing left upper extremity from excoriation Assessment & Plan Assessment/Plan (1) Choledocholithiasis: (2) Acute gallstone pancreatitis: PLAN: Plan Proceed for laparoscopic cholecystectomy with intraoperative cholangiogram. Procedure read?described and patient denies any questions. Patient is due for ERCP this afternoon to clear obstructing stone. Charges/Coding Visit Charges Inpatient E&M: 08210 Subs Hosp L2
--- NOTE | 2021-10-22 11:05 | GALL_PTH ---
PATIENT: HERLINDA GARCIA LOC: [facility] U#:[id number] AGE/SX: 71/M ROOM: [facility] RE10/21/[address]: Dr. Dany Holliday DO : 1950 BED: 1 DIS: 10/23/2021 SPEC #: [id number] RECD: 10/22/21 17:24 STATUS: RONALD CLEMENT #: [id number] BRANDAN: 10/22/21 11:[address]: Edgar Koenig DEPT: SURGICAL PATHOLOGY RECD BY: Eda Paniagua ENTERED: 10/26/21 10:10 SP TYPE: FERNANDO CORTES DR: MD Dr. Amarjit Shelby MD Dr. Mark Tereletsky, DO Tissues: Gallbladder, NOS Procedures: Surgery Specimen Level III HEADER OPERATION: Laparoscopic cholecystectomy with IOC PRE-OP DIAGNOSIS: Choledocholithiasis, acute gallstone pancreatitis TISSUE SUBMITTED: Gallbladder MICROSCOPIC DIAGNOSIS Gallbladder, cholecystectomy: Acute and chronic cholecystitis and cholelithiasis. Reactive epithelial changes. SJ:sury 10/27/2021 MICROSCOPIC DESCRIPTION Slides are reviewed. GROSS DESCRIPTION Received is one container labeled with the patient's name and designated gallbladder. The specimen consists of a gallbladder measuring 10 x 4.6 x 3 cm. The external surface is smooth and glistening. Focally, it is granular, hemorrhagic and contains cautery artifact. The lumen of the gallbladder contains yellow-green mucoid bile and multiple black to light mckee calculi ranging in size from <0.1 to 2 cm in greatest dimension. The mucosa is bile-stained and without any mass lesions. The gallbladder wall averages 0.4 cm in thickness and is free of mass lesions. Glue Sprayer sections of the gallbladder and the cystic duct at margin of resection are submitted in one cassette. / AM:sury 10/26/2021 TC:2 CPT: 41479
[2021-10-22 11:31] LABS: Bedside Glucose 95 mg/dL (74-106)
--- NOTE | 2021-10-22 12:32 | RAD_ITS ---
STUDY: INTRAOPERATIVE CHOLANGIOGRAM. REASON FOR EXAM: Male, 71 years old. LAPAROSCOPIC, CHOLECYSTECTOMY FLUOROSCOPY TIME (if supplied): ( 33.2 seconds ) minutes/seconds. A cine loop of 221 images was obtained. TECHNIQUE: An intraoperative cholangiogram was performed by the surgeon. Imaging was obtained. COMPARISON: None. FINDINGS: There is dilatation of the common bile duct. Moderate-sized filling defect is seen in the distal portion of the common bile duct. This is in keeping with distal choledocholithiasis. Contrast is seen within the duodenum. RAD/Cholangiogram/ O R,Initial IMPRESSION: Dilated common bile duct with the a stone in the distal portion. Small amount of contrast is seen within the duodenum. Electronically Signed: Keaton Vasquez MD at 14:31 EDT ,
[2021-10-22] MEDS: Bupivacaine Mpf 0.5% 30 ML VIAL (15:25)
--- NOTE | 2021-10-22 15:32 | OP.PCM_ITS ---
Report of Operation Date of Procedure: 10/22/21 Pre-Operative Diagnosis: 1. Gallstone pancreatitis 2. Choledocholithiasis Post-Operative Diagnosis: 1. Gallstone pancreatitis 2. Choledocholithiasis 3. Cholecystitis Surgery/Procedure Performed:: Laparoscopic cholecystectomy with intraoperative cholangiogram Description of Surgical Findings:: ? Very elongated gallbladder with gallbladder infundibulum flopped down behind the cystic duct and gallbladder located in the intrahepatic location ? Dilated cystic duct ? Anterior and posterior cystic arteries ? Cholangiogram showing standard length cystic duct flowing into a common bile duct that is partially occluded with a number of filling defects. Normal filling of the right and left hepatic ducts Surgeon: Edgar Koenig medical practitioners: Hayley Gill Type of Anesthesia: General/Supplemental Anesthesiologist: Richmond Hassan Specimen's removed: gallbladder Drains: None Estimated Blood Loss (mL): 50 Description of Procedure: After proper identification in the preoperative holding area the patient was brought to the operating room where positioned supine on the operating room table. Preoperatively SCDs and antibiotics were administered (given that patient had a prolonged period since his scheduled dose). General anesthesia was then induced. Patient's abdomen was prepped and draped in usual sterile fashion. A formal timeout was conducted to confirm both patient and the procedure. Procedure was begun with a supraumbilical incision which was extended deeply down to the level of the fascia. The fascia was elevated and incised, as well as the peritoneum. A finger sweep was performed to ensure there were no underlying adhesions and a 12 mm balloon trocar was inserted. Pneumoperitoneum was established at 15 mmHg. 3 additional trocars were placed in the epigastrium (12 mm) and in the right upper quadrant (2 x 5 mm). Inspection of the peritoneum revealed no inadvertent injury to the viscera below. The gallbladder was visualized with a moderate degree of inflammation. The gallbladder fundus was then grasped and elevated cephalad. Unfortunately gallbladder wall proved very friable and this resulted in inadvertent tearing of the gallbladder and, consequently, local bile spillage. This was promptly suctioned free of the peritoneum. It was initially difficult to place the gallbladder on adequate traction given its exceptional length, however, we were able to put the dilated cystic duct on stretch and open the peritoneum medially and laterally to facilitate blunt dissection of the contents of the triangle of Calot. The cystic duct proved to be very dilated and did not taper appreciably so I took great care to dissect directly from the gallbladder infundibulum onto the cystic duct so as not to miss a foreshortened cystic duct. In this manner the cystic duct was fully skeletonized into became apparent that our largest clips would not reach across the duct fully so I elected to perform a cholangiogram using a Tijerina clamp. Once the catheter was fed into the cystic duct a cholangiogram was obtained showing a standard length cystic duct flowing into a dilated common bile duct with near complete obstruction (there is a small amount of contrast flowing into the duodenum) of antegrade flow of contrast into the duodenum from a number of filling defects near the ampulla. There was also retrograde flow through the common hepatic duct into the right and left hepatic ducts. Satisfied with this result, the cystic duct was triply clipped and sharply divided. I then proceeded to dissect out the cystic artery more medially. This dissection was more challenging than usual as the gallbladder was very intrahepatic and the hepatocystic triangle was not easily opened. Once the cystic artery was isolated, it was triply clipped and sharply divided. I then began blunt dissection towards the gallbladder fossa. Centrally there was a vessel that, with further dissection, entered the gallbladder posteriorly so it was clipped and sharply divided as well. The gallbladder was then removed from the gallbladder fossa with the use of electrocautery. Selective electrocautery was used to obtain hemostasis in the gallbladder fossa. The gallbladder was placed in an Endo Catch bag and removed from the peritoneum. Morison's pouch was irrigated and the effluent was suctioned free of the peritoneum. Unfortunately there was an area of oozing that persisted despite several attempts with the regular electrocautery so I requested argon beam coagulation and this, overall, achieved hemostasis. Near the base of the fossa where our clips remained there was some slight oozing so I chose to place fibrillar hemostatic agent in this location. The liver was allowed to return to its normal position and external pressure was applied. When the area was reinspected once more there was some fresh clot and further elevation of the liver revealed a small area of bleeding from the top of the omentum approximately at the junction of the cystic and common bile ducts. Very limited bipolar energy was applied in this area and hemostasis was again confirmed. Pneumoperitoneum was evacuated and the fascia of the 12 mm port sites was closed with #1Vicryl in a [id number]-mo-ellba fashion. A total of 30 mL of anesthetic was injected at the port sites for postoperative pain control. The skin of each port site was then closed in subcuticular fashion using 4-0 Monocryl. Steri- Strips and bandages were applied as dressings. Patient tolerated the procedure well without any apparent complications. At this time the case was turned over to Dr. Osman of gastroenterology for the patient's scheduled ERCP. Please see his documentation for complete details of this procedure. Complications None Admit VTE Documentation VTE Present on Admission: Yes VTE Mechan Device Prophylaxis: SCD's Procedures Digestive 40xxx-49xxx: 25745 Laparo cholecystectomy/graph
--- NOTE | 2021-10-22 16:00 | RAD_ITS ---
EXAM: INTRAOPERATIVE CHOLANGIOGRAM FLUOROSCOPY TIME: 18.5 seconds RADIATION DOSE: 4.6 mGy TOTAL NUMBER OF IMAGES: 1 COMPARISON: None. PROVIDED CLINICAL HISTORY: STONES PAIN TECHNIQUE: The examination was performed with physician in attendance. Under fluoroscopic observation, fluoroscopic images were obtained in the operating room. FINDINGS: First image demonstrates surgical instruments overlying the [id number]. Contrast is identified in a cannulated common bile duct. Retrograde contrast is notseen in the pancreatic duct. Contrast is noted in the proximal duodenum. Contrast is seen in the intrahepatic ducts. RAD/ERCP Biliary Only IMPRESSION: Fluoroscopic assistance images were obtained. Pertinent findings noted above. Electronically Signed: Leobardo Awad MD at 16:42 EDT ,
--- NOTE | 2021-10-22 16:40 | OP.ERCP_ITS ---
Patient Name: Alejandro Smith Procedure Date: 10/22/2021 4:04 PM Date of : 1950 Age: 71 Procedure: ERCP Indications: Jaundice, Acute pancreatitis Providers: Jayme Osman DO Medicines: General Anesthesia Patient Profile: This is a 71 year old male. Refer to note in patient chart for documentation of history and physical. Patient has symptoms of acute right upper quadrant abdominal pain and acute jaundice. He is status post laparoscopic cholecystectomy recently. Complications: No immediate complications. Procedure: Pre-Anesthesia Assessment: - Prior to the procedure, a History and Physical was performed, and patient medications and allergies were reviewed. The risks and benefits of the procedure and the sedation options and risks were discussed with the patient. All questions were answered and informed consent was obtained. Patient identification and proposed procedure were verified by the physician in the pre-procedure area. Mental Status Examination: alert and oriented. Airway Examination: normal oropharyngeal airway and neck mobility. Respiratory Examination: clear to auscultation. CV Examination: normal. Prophylactic Antibiotics: The patient does not require prophylactic antibiotics. Prior Anticoagulants: The patient has taken no previous anticoagulant or antiplatelet agents. ASA Grade Assessment: II - A patient with mild systemic disease. After reviewing the risks and benefits, the patient was deemed in satisfactory condition to undergo the procedure. The anesthesia plan was to use moderate sedation / analgesia (conscious sedation). Immediately prior to administration of medications, the patient was re-assessed for adequacy to receive sedatives. The heart rate, respiratory rate, oxygen saturations, blood pressure, adequacy of pulmonary ventilation, and response to care were monitored throughout the procedure. The physical status of the patient was re-assessed after the procedure. After obtaining informed consent, the scope was passed under direct vision. Throughout the procedure, the patient's blood pressure, pulse, and oxygen saturations were monitored continuously. The duodenoscope was introduced through the mouth, and advanced to the duodenum and used to inject contrast into the bile duct. The ERCP was accomplished without difficulty. The patient tolerated the procedure well. Scope In: 4:08:33 PM Scope Out: 4:21:50 PM Total Procedure Duration Time 0 hours 13 minutes 17 seconds Findings: The zoology professor film was normal. The esophagus was successfully intubated under direct vision. The scope was advanced to a normal major papilla in the descending duodenum without detailed examination of the pharynx, larynx and associated structures, and upper GI tract. The upper GI tract was grossly normal. The bile duct was deeply cannulated. Contrast was injected. Opacification of the entire biliary tree except for the cystic duct and gallbladder was successful. The maximum diameter of the ducts was 10 mm. The lower third of the main bile duct contained one stone, which was 10 mm in diameter. The main bile duct was diffusely dilated, with a stone causing an obstruction. The largest diameter was 11mm. A cholecystectomy had been performed. A straight Roadrunner wire was passed into the biliary tree. A 5 mm biliary sphincterotomy was made with a traction (standard) sphincterotome using ERBE electrocautery. There was no post-sphincterotomy bleeding. The biliary tree was swept with a 15 mm balloon starting at the bifurcation. Sludge was swept from the duct. All stones were removed. Dilation of the common bile duct with a 6-7-8 mm balloon (to a maximum balloon size of 8 mm) dilator was successful. Coagulation for hemostasis in the first portion of the duodenum using heater probe through the esophagogastroduodenoscope was successful. The scope was passed under direct vision through the upper GI tract. A large-mouthed diverticulum was found in the area of the papilla. Many oozing cratered duodenal ulcers with a visible vessel were found in the duodenal bulb, in the first portion of the duodenum and in the second portion of the duodenum. The largest lesion was 6 mm in largest dimension. Impression: - Hemostasis in the first portion of the duodenum with a heater probe was performed. - Duodenal diverticulum. - Multiple oozing duodenal ulcers with a visible vessel. - The entire main bile duct was dilated, with a stone causing an obstruction. - The patient has had a cholecystectomy. - Choledocholithiasis was found. Complete removal was accomplished by biliary sphincterotomy and balloon extraction. - A biliary sphincterotomy was performed. - The biliary tree was swept. - Common bile duct was successfully dilated. Procedure Code(s): --- Professional --- 22650, 59, Endoscopic retrograde cholangiopancreatography (ERCP); with trans-endoscopic balloon dilation of biliary/pancreatic duct(s) or of ampulla (sphincteroplasty), including sphincterotomy, when performed, each duct 85443, 51, Endoscopic retrograde cholangiopancreatography (ERCP); with removal of calculi/debris from biliary/pancreatic duct(s) 36092, Esophagogastroduodenoscopy, flexible, transoral; with control of bleeding, any method CPT copyright 2017 [employer]. All rights reserved. The codes documented in this report are preliminary and upon photolithographer review may be revised to meet current compliance requirements. Jayme Osman DO 10/22/2021 4:39:47 PM This report has been signed electronically. Number of Addenda: 0 Note Initiated On: 10/22/2021 4:04 PM
--- NOTE | 2021-10-22 16:40 | OP.CCLET_ITS ---
10/22/2021 Amarjit Garcia Re : ERCP procedure for Alejandro Smith Dear Jose This procedure was performed on Friday, October 22, 2021. My impressions and recommendations are as follows: Impressions : - Hemostasis in the first portion of the duodenum with a heater probe was performed. - Duodenal diverticulum. - Multiple oozing duodenal ulcers with a visible vessel. - The entire main bile duct was dilated, with a stone causing an obstruction. - The patient has had a cholecystectomy. - Choledocholithiasis was found. Complete removal was accomplished by biliary sphincterotomy and balloon extraction. - A biliary sphincterotomy was performed. - The biliary tree was swept. - Common bile duct was successfully dilated. Recommendations : My findings are described in the full procedure note, which is enclosed. If I can be of further assistance, please feel free to contact me at . Sincerely, Jayme Osman, 10/22/2021 4:39:47 PM This report has been signed electronically.
[2021-10-22] MEDS: Sugammadex Sodium 200 MG/2 ML VIAL IV (17:12)
[2021-10-22 17:31] LABS: Bedside Glucose 102 mg/dL (74-106)
[2021-10-22] MEDS: Carvedilol 25 MG Tablet PO (19:01)
--- NOTE | 2021-10-22 19:50 | PCM.PN.HOSP ---
Subjective Subjective Patient was seen and examined late this afternoon, he underwent a laparoscopic cholecystectomy with intraoperative cholangiogram followed by an ERCP which revealed multiple oozing duodenal ulcers with a visible vessels, a stone was noted in the main bile duct causing an obstruction, complete removal of the stone was accomplished by biliary sphincterotomy and balloon extraction. Patient appears comfortable at the time my examination tonight. I talked briefly with gastroenterology about his care today. Objective Data Objective Data Vital Signs: Vital Signs Temp Pulse Resp BP Pulse Ox O2 Del Method 97.5 F L 127 H 20 H 131/63 H 92 Room Air 10/22/21 18:55 10/22/21 18:55 10/22/21 18:55 10/22/21 18:55 10/22/21 18:55 10/22/21 18:55 Oxygen Delivery Method Room Air Weight: 92.6 kg Body Mass Index (BMI) 31.0 Intake & Output: Intake and Output for Last 24 Hours 10/20/21 10/21/21 10/22/21 23:59 23:59 23:59 Intake Total 3713.33 / 3953.33 2700 / 2700 Output Total 1400 / 1400 875 / 875 Balance 2313.33 / 2553.33 1825 / 1825 Lab / Micro Data Result Diagrams: 10/22/21 06:18 10/22/21 06:18 Labs: Laboratory Results - last 24 hr 10/22/21 00:00: POC Glucose 198 H 10/22/21 06:01: POC Glucose 125 H 10/22/21 06:18: WBC 10.0, RBC 3.69 L, Hgb 11.0 L, Hct 34.2 L, MCV 92.7, MCH 29.8, MCHC 32.2, RDW Std Deviation 43.1, RDW Coeff of Sreekanth 12.7, Plt Count 119 L, MPV 11.7, Immature Gran % (Auto) 0.500, Neut % (Auto) 88.9 H, Lymph % (Auto) 3.8 L, [place] % (Auto) 6.2, Eos % (Auto) 0.5, Baso % (Auto) 0.1, Absolute Neuts (auto) 8.9 H, Absolute Lymphs (auto) 0.38 L, Nucleated RBC % 0 10/22/21 06:18: Sodium 142, Potassium 3.3 L, Chloride 111 H, Carbon Dioxide 24.0, Anion Gap 7, BUN 49 H, Creatinine 2.56 H, Estim Creat Clear Calc 26.35, Est GFR (MDRD) Af Amer 32 L, Est GFR (MDRD) Non-Af 27 L, BUN/Creatinine Ratio 19.1, Glucose 128 H, Calcium 8.5, Total Bilirubin 5.30 H, AST 96 H, ALT 187 H, Alkaline Phosphatase 303 H, Total Protein 5.7 L, Albumin 2.3 L, Globulin 3.4, Albumin/Globulin Ratio 0.7 L, Lipase 2075 H 10/22/21 11:03: POC Glucose 95 10/22/21 17:23: POC Glucose 102 Radiography Diagnostic Testing: Radiology Impression Cholangiogram 10/22/21 12:32 IMPRESSION: Dilated common bile duct with the a stone in the distal portion. Small amount of contrast is seen within the duodenum. Electronically Signed: Keaton Vasquez MD at 14:31 EDT , ERCP X-Ray 10/22/21 16:00 IMPRESSION: Fluoroscopic assistance images were obtained. Pertinent findings noted above. Electronically Signed: Leobardo Awad MD at 16:42 EDT , Physical Exam Const alert, oriented x3, no apparent distress and healthy appearing General Appearance: cooperative, well kempt and well developed Orientation / Consciousness: awake, oriented to person, oriented to place and oriented to time HEENT normocephalic, head/scalp atraumatic and moist oral mucous membranes Eyes PERRL, EOMs intact bilaterally and conjunctivae normal Neck supple, no JVD, thyroid normal and no carotid bruits General: trachea midline Resp normal respiratory effort, no retractions, no use of accessory muscles and clear to auscultation bilaterally Auscultation: Negative for rales, rhonchi or wheezes Cardio regular rate, regular rhythm, S1 normal heart sound, S2 normal heart sound, no murmurs, no rub and no gallops Extremity no clubbing, cyanosis or edema Skin no rashes or lesions noted General Skin Exam: no breakdown Neuro oriented x3, CN's II-XII intact bilaterally, no focal motor deficits and no sensory deficits noted Sensorium / Orientation: awake and alert Speech: speech normal Psych affect normal Assessment & Plan Assessment/Plan (1) Acute gallstone pancreatitis: PLAN: Plan 1. Gallstone pancreatitis-postop day 0 laparoscopic cholecystectomy with removal of bile duct stone-patient appears stable at this time, gastroenterology and general surgery is participating in his care #2 cholecystitis-status post laparoscopic cholecystectomy-postop day 0, care per general surgery #3 type 2 diabetes-blood sugars will be monitored, sliding scale insulin will be given #4 essential hypertension-patient will remain on his oral medications #5 hyperlipidemia-patient is on a statin #6 stage IIIb chronic kidney disease disease-monitor BMP Charges/Coding Visit Charges Inpatient E&M: 64770 Subs Hosp L2
[2021-10-22] MEDS: oxyCODONE 5 MG Tablet PO (20:01)
[2021-10-22 21:46] LABS: Bedside Glucose 101 mg/dL (74-106)
[2021-10-22 21:46] LABS: Bedside Glucose 64 mg/dL (74-106)
--- NOTE | 2021-10-23 00:50 | NURSING ---
Pt BG was 64 at HS, pt awake and alert. Gave 8oz of orange juice. After a few minutes BG came up to 101. Pt denies additional needs, requested more drinks at this time.
[2021-10-23 00:51] VITALS: BP 120/60; PULSE 84; RESP 14; TEMP 36.4; O2SAT 98
[2021-10-23 01:24] VITALS: O2SAT 96
[2021-10-23 01:31] LABS: Bedside Glucose 109 mg/dL (74-106)
[2021-10-23] MEDS: 0.9% Normal Saline 1,000 ML 150 ML IV ×2 (02:19→08:50)
[2021-10-23 03:34] VITALS: PULSE 76
[2021-10-23 04:36] VITALS: BP 128/65; PULSE 77; RESP 16; TEMP 36.9; O2SAT 95
[2021-10-23 05:57] LABS: Absolute Lymphocyte Count 0.35 X10^3/uL (0.83-4.51); Absolute Neutrophil Count 10.4 X10^3/uL (2.0-7.7); Basophil# 0.02 X10^3/uL; Basophil% 0.2 % (0-1); Eosinophil# 0.07 X10^3/uL; Eosinophils% 0.6 % (0-5); Hematocrit 34.6 % (40-54); Hemoglobin 10.9 g/dL (13.0-16.5); Lymphocyte # 0.35 X10^3/ul (0.83-4.51); Lymphocyte % 3.1 % (19-41); Mean Corp Hgb Conc 31.5 g/dL (32-36); Mean Corpuscular Hgb 29.7 pg (27.0-32.0); Mean Corpuscular Volume 94.3 fL (80-94); Mean Platelet Vol. 11.8 fl (6.2-12.0); Monocyte# 0.46 X10^3/uL; NRBC Flagged by Analyzer 0 % (0-5); Neutrophil # 10.44 X10^3/uL (2.7-7.7); Neutrophil % 91.5 % (47-70); POSITIVE DIFFERENTIAL YES; Platelet Count 114 K/mm3 (150-450); RBC Distribution Width CV 13.1 % (11.6-14.6); RBC Distribution Width SD 45.3 fl (35.1-43.9); Red Blood Count 3.67 M/mm3 (4.6-6.2); White Blood Count 11.4 K/mm3 (4.4-11.0)
[2021-10-23 06:10] LABS: Bedside Glucose 106 mg/dL (74-106)
[2021-10-23 06:15] LABS: BUN 41 mg/dL (7-18); Creatinine, Serum 2.33 mg/dL (0.70-1.30); Estimated Creatinine Clearance 28.95 ml/min; Glucose 115 mg/dL (74-106)
[2021-10-23 06:16] LABS: ALB/GLOB Ratio 0.6 RATIO (0.9-2.4); AST(SGOT) 321 U/L (15-37); Alanine Aminotransfer ALT/SGPT 317 U/L (16-61); Albumin, Serum 2.1 g/dL (3.2-5.0); Alkaline Phosphatase 275 U/L (45-117); Anion Gap 10 (5-15); BUN/Creat Ratio 17.6 RATIO (10-20); Calcium,Total 8.4 mg/dL (8.5-10.1); Chloride 110 mmol/L (98-107); EST Glomerular Filtration Rate 30 mL/min (>60); Est Glom Filt Rate - Afr Amer 36 mL/min (>60); Globulin 3.5 g/dL (2.2-4.2); Protein, Total 5.6 g/dL (6.4-8.2); Sodium Level 141 mmol/L (136-145)
[2021-10-23 06:19] LABS: Differential Indicated SCAN CRITERIA MET
[2021-10-23 06:28] LABS: Lipase 225 U/L (73-393)
[2021-10-23 06:30] LABS: Differential Comment SCANNED
[2021-10-23 07:19] VITALS: PULSE 75
[2021-10-23 08:41] VITALS: BP 124/52; PULSE 74; RESP 16; TEMP 36.6; O2SAT 98
[2021-10-23] MEDS: Atorvastatin Calcium 20 MG Tablet PO (08:47)
--- NOTE | 2021-10-23 10:24 | DCINST_ITS ---
Discharge Instructions Diet Discharge Diet: 1800 Calorie Control Diet Activity Discharge Activity: Return to Normal Activity Weight Bearing Status: Full weight bearing Follow Up Care Test Results: Test results from this visit will be discussed in further detail at your follow- up appointment, if applicable. Discharge Plan Admission Admit Date/Time: 10/21/21 05:17 Primary Reason for Your Visit: gallstone pancreatitis, cholecystitis Attending Provider: Dany Holliday Primary Care Provider: Amarjit Garcia Consulting Providers: Edgar Koenig ; Clauida Feliz Discharge Orders/Prescriptions Prescriptions: New hydrocodone-acetaminophen 5-325 mg tablet 1 tab PO Q6H PRN (Reason: pain) 5 Days Qty: 12 0RF pantoprazole [Protonix] 40 mg tablet,delayed release (DR/EC) 40 mg PO DAILY Qty: 30 0RF Continued carvedilol 25 mg tablet 25 mg PO BID famotidine 20 mg tablet 20 mg PO BID Janumet 50-1,000 mg tablet 1 tab PO BID pioglitazone 15 mg tablet 15 mg PO DAILY losartan-hydrochlorothiazide 100-25 mg tablet 1 tab PO DAILY rosuvastatin [Crestor] 10 mg Tablet 10 mg PO DAILY Referrals / Follow Up: Amarjit Garcia MD [Primary Care Provider] - Edgar Koenig MD [STAFF PHYSICIAN] - In 1 Week (call for an appointment next week) Disposition Disposition (needs filled in before D/C Order can be placed): Home, Self Care
--- NOTE | 2021-10-23 18:21 | PN.HOSP_ITS ---
Subjective Subjective Patient was seen and examined today, he has very little abdominal discomfort, he appears to be stable for discharge at this time. I talked with general surgery about his medical care. Objective Data Objective Data Vital Signs: Vital Signs Temp Pulse Resp BP Pulse Ox O2 Del Method O2 Flow Rate 98 F 74 16 124/52 H 98 Room Air 2 10/23/21 08:41 10/23/21 08:41 10/23/21 08:41 10/23/21 08:41 10/23/21 08:41 10/23/21 09:47 10/23/21 00:51 Oxygen Flow Rate (L/min) 2 Oxygen Delivery Method Room Air Weight: 96.3 kg Body Mass Index (BMI) 31.0 Intake & Output: Intake and Output for Last 24 Hours 10/21/21 10/22/21 10/23/21 23:59 23:59 23:59 Intake Total 3713.33 / 3953.33 2810 / 2810 2322.5 / 2322.5 Output Total 1400 / 1400 875 / 875 Balance 2313.33 / 2553.33 1935 / 1935 2322.5 / 2322.5 Lab / Micro Data Result Diagrams: 10/23/21 05:27 10/23/21 05:27 Labs: Laboratory Results - last 24 hr 10/22/21 20:57: POC Glucose 64 L 10/22/21 21:42: POC Glucose 101 10/23/21 01:07: POC Glucose 109 H 10/23/21 05:27: WBC 11.4 H, RBC 3.67 L, Hgb 10.9 L, Hct 34.6 L, MCV 94.3 H, MCH 29.7, MCHC 31.5 L, RDW Std Deviation 45.3 H, RDW Coeff of Sreekanth 13.1, Plt Count 114 L, MPV 11.8, Immature Gran % (Auto) 0.600, Neut % (Auto) 91.5 H, Lymph % (Auto) 3.1 L, [place] % (Auto) 4.0, Eos % (Auto) 0.6, Baso % (Auto) 0.2, Absolute Neuts (auto) 10.4 H, Absolute Lymphs (auto) 0.35 L, Nucleated RBC % 0, Differential Comment SCANNED 10/23/21 05:27: Sodium 141, Potassium 4.0, Chloride 110 H, Carbon Dioxide 21.0, Anion Gap 10, BUN 41 H, Creatinine 2.33 H, Estim Creat Clear Calc 28.95, Est GFR (MDRD) Af Amer 36 L, Est GFR (MDRD) Non-Af 30 L, BUN/Creatinine Ratio 17.6, G lucose 115 H, Calcium 8.4 L, Total Bilirubin 4.70 H, AST 321 H, ALT 317 H, Alkaline Phosphatase 275 H, Total Protein 5.6 L, Albumin 2.1 L, Globulin 3.5, Albumin/Globulin Ratio 0.6 L 10/23/21 05:27: Lipase 225 10/23/21 05:55: POC Glucose 106 Physical Exam Const alert, oriented x3, no apparent distress and healthy appearing General Appearance: cooperative, well kempt and well developed Orientation / Consciousness: awake, oriented to person, oriented to place and oriented to time HEENT normocephalic, head/scalp atraumatic and moist oral mucous membranes Eyes PERRL, EOMs intact bilaterally and conjunctivae normal Neck supple, no JVD, thyroid normal and no carotid bruits General: trachea midline Resp normal respiratory effort, no retractions, no use of accessory muscles and clear to auscultation bilaterally Auscultation: Negative for rales, rhonchi or wheezes Cardio regular rate, regular rhythm, S1 normal heart sound, S2 normal heart sound, no murmurs, no rub and no gallops GI soft to palpation and non-distended GI Narrative: Bowel sounds are present in all 4 quadrants Extremity no clubbing, cyanosis or edema Skin no rashes or lesions noted General Skin Exam: no breakdown Neuro oriented x3, CN's II-XII intact bilaterally, no focal motor deficits and no sensory deficits noted Sensorium / Orientation: awake and alert Speech: speech normal Psych affect normal Assessment & Plan Assessment/Plan (1) Acute gallstone pancreatitis: PLAN: Plan 1. Gallstone pancreatitis-postop day 1 laparoscopic cholecystectomy with removal of bile duct stone-patient appears stable at this time, patient appears stable for discharge home at this time, patient's discharge paperwork was filled out by myself #2 cholecystitis-status post laparoscopic cholecystectomy-postop day 1 #3 type 2 diabetes-patient will resume his diabetic medications as an outpatient #4 essential hypertension-patient will remain on his oral medications #5 hyperlipidemia-patient is on a statin #6 stage IIIb chronic kidney disease disease secondary to type 2 diabetes Charges/Coding Visit Charges Inpatient E&M: 77048 Subs Hosp L3
--- NOTE | 2021-11-16 19:31 | PCM.DC.SUM ---
Providers Date of Admission: 10/21/21 Date of Discharge: 10/23/21 Primary Care Physician: Dr. Amarjit Garcia MD Consultations 10/21/21 06:25 Consult: Gastroenterology Routine Consulting Provider: [facility] Reason for Consult: Acute choledocholithiasis EMERGENT Consult: No Notified: Yes Date Notified: 10/21/21 Time Notified: 05:20 Method of Notification: ED Physician Initiated Consult: General Surgery Routine Consulting Provider: Edgar Koenig Reason for Consult: Acute choledocholithiasis EMERGENT Consult: No Notified: Yes Date Notified: 10/21/21 Time Notified: 05:20 Method of Notification: ED Physician Initiated Reason For Visit: CHOLEDOCHOLITHIASIS Diagnosis Discharge Diagnosis (1) Acute gallstone pancreatitis: Status: Resolved Code(s): K85.10 - Biliary acute pancreatitis without necrosis or infection Plan 1. Gallstone pancreatitis #2 Acute cholecystitis #3 type 2 diabetes- #4 essential hypertension #5 hyperlipidemia #6 stage IIIb chronic kidney disease disease secondary to type 2 diabetes #7 hyperkalemia Medications at Discharge Home Medications carvedilol 25 mg tablet 25 mg PO BID 10/21/21 famotidine 20 mg tablet 20 mg PO BID 10/21/21 losartan 100 mg-hydrochlorothiazide 25 mg tablet 1 tab PO DAILY 10/21/21 pioglitazone 15 mg tablet 15 mg PO DAILY 10/21/21 rosuvastatin 10 mg tablet (Crestor) 10 mg PO DAILY 10/21/21 sitagliptin 50 mg-metformin 1,000 mg tablet (Janumet) 1 tab PO BID 10/21/21 pantoprazole 40 mg tablet,delayed release (Protonix) 40 mg PO DAILY #30 tabs 10/23/21 Hospital Course Operations cholecystecomy Procedures - (ERCP with biliary sphincterotomy and balloon extraction) Summary of Care Provided Minutes Spent on Discharge: 31 Hospital Course: This 71-year-old white male was seen in the emergency room at [facility] with complaints of epigastric pain, nausea, vomiting, and dry heaves. Patient also complained of itching. Work-up in the emergency room included labs which were abnormal showing an elevated white blood cell count of 14.6, elevated bilirubin at 6.6, elevation of the patient's transaminases, lipase of 3343, creatinine elevated at 2.65 with a BUN of 66. CT of the abdomen and pelvis demonstrated distended gallbladder with cholelithiasis as well as what appeared to be a distant ductal stone. Patient was given IV fluids and Zosyn, he was also given IV Zofran, general surgery was contacted as well as gastroenterology, patient was admitted to the hospitalist service on PCU, he was seen in consultation by gastroenterology who performed an ERCP with a stone extraction and a sphincterotomy. Patient then underwent a laparoscopic cholecystectomy with intraoperative cholangiogram. Patient did well after his surgery, there were no major complications. On 10/23/2021, patient was seen and examined: On examination he appeared in good health and spirits. Vital signs as documented. Skin warm and dry and without overt rashes. Neck without JVD, neck was supple, trachea midline, thyroid was normal. Lungs clear bilaterally, normal air movement was noted. Heart exam notable for regular rhythm, normal sounds and absence of murmurs, rubs or gallops. Abdomen unremarkable and without evidence of organomegaly, masses, or abdominal aortic enlargement. Bowel sounds are present, abdomen is not distended. Extremities nonedematous, no cyanosis was noted, no clubbing was noted. Neuro: Cranial nerves II through XII are grossly intact, no focal motor deficits were noted, sensation to light touch and pinprick intact, motor exam 5/5 throughout. Psych: Patient is alert and oriented x3, he does not appear anxious or depressed, he does not appear agitated. Patient was discharged home in stable condition on 10/23/2021. Weight / BMI Weight Weight: 96.3 kg Body Mass Index (BMI) 31.0 ABG / Lab / Microbiology Data Result Diagrams: 10/23/21 05:27 10/23/21 05:27 D/C Instructions Discharge Diet: 1800 Calorie Control Diet Weight Bearing Status: Full weight bearing Meaningful Use Info Meaningful Use Diagnoses (Choose all that apply): None applicable Discharge Plan Admission Admit Date/Time: 10/21/21 05:17 Primary Reason for Your Visit: gallstone pancreatitis, cholecystitis Attending Provider: Dany Holliday Primary Care Provider: Amarjit Garcia Consulting Providers: Edgar Koenig ; Claudia Feliz Discharge Orders/Prescriptions Prescriptions: New pantoprazole [Protonix] 40 mg tablet,delayed release (DR/EC) 40 mg PO DAILY Qty: 30 0RF Continued carvedilol 25 mg tablet 25 mg PO BID famotidine 20 mg tablet 20 mg PO BID Janumet 50-1,000 mg tablet 1 tab PO BID pioglitazone 15 mg tablet 15 mg PO DAILY losartan-hydrochlorothiazide 100-25 mg tablet 1 tab PO DAILY rosuvastatin [Crestor] 10 mg Tablet 10 mg PO DAILY Referrals / Follow Up: Amarjit Garcia MD [Primary Care Provider] - Edgar Koenig MD [Med Staff - Active Staff] - In 1 Week (call for an appointment next week) Disposition Disposition (needs filled in before D/C Order can be placed): Home, Self Care Charges/Coding Visit Charges Inpatient E&M: 23438 Disch Hosp
== END 2021-10-23 11:27 | disposition home or self-care (01) | DRG 417 ==
LOC: ED 05:21 → PCU 05:29
PROVIDERS: Internal Medicine Gastroenterology; Surgery; Admitting Provider Family Medicine; Emergency Provider Emergency Medicine; PCP Family Medicine; Visit Provider Internal Medicine
PROC: 0FT44ZZ Resection of Gallbladder, Percutaneous Endoscopic Approach (ICD-10-PCS; CPT 47610; principal; 2021-10-22 10:45)
PROC: 0W3P8ZZ Control Bleeding in Gastrointestinal Tract, Via Natural or Artificial Opening Endoscopic (ICD-10-PCS; CPT 43260; principal; 2021-10-22 15:10)
DX: K85.10 Biliary acute pancreatitis without necrosis or infection (principal); K26.4 Chronic or unspecified duodenal ulcer with hemorrhage; N17.9 Acute kidney failure, unspecified; K80.41 Calculus of bile duct with cholecystitis, unspecified, with obstruction; K83.8 Other specified diseases of biliary tract; E11.22 Type 2 diabetes mellitus with diabetic chronic kidney disease; N18.32 Chronic kidney disease, stage 3b; E78.5 Hyperlipidemia, unspecified; K21.9 Gastro-esophageal reflux disease without esophagitis; I12.9 Hypertensive chronic kidney disease with stage 1 through stage 4 chronic kidney disease, or unspecified chronic kidney disease; E87.5 Hyperkalemia; K57.10 Diverticulosis of small intestine without perforation or abscess without bleeding; Z79.84 Long term (current) use of oral hypoglycemic drugs; M94.0 Chondrocostal junction syndrome [Tietze]
CPT/HCPCS: 36415; 71045; 74176; 74300; 74328; 76000; 80053; 80061; 80074; 82306; 82607; 82962; 83036; 83690; 83735; 84443; 84484; 85025; 85610; 85652; 85730; 86060; 86140; 86618; 88304; 93005; 94640; 99285; J7030; A4216; J1940; J2405

== ENCOUNTER → 2022-05-30 | Outpatient (CLI) | payer MEDICARE, OTHER, SELFPAY ==
[2022-05-30 11:47] LABS: Absolute Lymphocyte Count 0.84 X10^3/uL (0.83-4.51); Absolute Neutrophil Count 12.1 X10^3/uL (2.0-7.7); Basophil# 0.06 X10^3/uL; Basophil% 0.4 % (0-1); Eosinophil# 0.09 X10^3/uL; Eosinophils% 0.6 % (0-5); Hematocrit 37.9 % (40-54); Lymphocyte # 0.84 X10^3/ul (0.83-4.51); Lymphocyte % 5.8 % (19-41); Mean Corp Hgb Conc 34.3 g/dL (32-36); Mean Corpuscular Hgb 30.1 pg (27.0-32.0); Mean Corpuscular Volume 87.7 fL (80-94); Mean Platelet Vol. 9.9 fl (6.2-12.0); Monocyte# 1.24 X10^3/uL; Monocyte% 8.6 % (0-10); NRBC Flagged by Analyzer 0 % (0-5); Neutrophil # 12.09 X10^3/uL (2.7-7.7); Neutrophil % 84.2 % (47-70); Platelet Count 330 K/mm3 (150-450); RBC Distribution Width CV 12.2 % (11.6-14.6); RBC Distribution Width SD 39.2 fl (35.1-43.9); Red Blood Count 4.32 M/mm3 (4.6-6.2); White Blood Count 14.4 K/mm3 (4.4-11.0)
--- NOTE | 2022-05-30 11:49 | US_ITS ---
STUDY: ABDOMINAL ULTRASOUND - RIGHT UPPER QUADRANT REASON FOR VISIT: Male, 71 years old RUQ ABDOMINAL PAIN TECHNIQUE: Ultrasound evaluation of the right upper quadrant was performed with real-time and static stevens-scale imaging. TECHNICAL QUALITY: Adequate. COMPARISON: Comparison is made with prior CT scan of the abdomen and pelvis dated 05/30/2022. FINDINGS: Liver: The liver measures 15.3 cm. There is normal echogenicity of the liver. The bile ducts are within normal limits. There is hepatic color flow. The direction of portal flow is hepatopetal. There is no demonstrated mass lesion. Gallbladder: The patient is status post cholecystectomy. In the gallbladder fossa, there is evidence of a 8.2 cm x 4.6 cm x 5.2 cm complex fluid collection. This most likely represents a postoperative hematoma or possible abscess formation. Common Bile Duct (C.B.D.): The common bile duct measures 5.8 mm. Pancreas: Normal size of the head, body and tail of the pancreas. There is increased echogenicity of the pancreas. There is no demonstrated pancreatic mass or cyst. Right Kidney: Normal size of the right kidney. The right kidney measures 13.1 cm x 5.7 cm x 5.2 cm. Normal renal cortex. The right cortex measures 1.1 cm. Multiple small renal cysts are seen. The largest measures 2.5 cm x 2.5 cm x 2.6 cm. There is no right hydronephrosis. US/Abdomen Limited IMPRESSION: Status post cholecystectomy with a complex fluid collection in the gallbladder fossa as described. Multiple right renal cysts. Electronically Signed: Keaton Vasquez MD at 14:40 EST ,
[2022-05-30 12:02] LABS: ALB/GLOB Ratio 0.7 RATIO (0.9-2.4); AST(SGOT) 25 U/L (15-37); Alanine Aminotransfer ALT/SGPT 38 U/L (16-61); Albumin, Serum 3.1 g/dL (3.2-5.0); Alkaline Phosphatase 175 U/L (45-117); Amylase 33 U/L (25-115); Anion Gap 7 (5-15); BUN 57 mg/dL (7-18); BUN/Creat Ratio 22.9 RATIO (10-20); Calcium,Total 10.6 mg/dL (8.5-10.1); Chloride 111 mmol/L (98-107); Creatinine, Serum 2.49 mg/dL (0.70-1.30); EST Glomerular Filtration Rate 27 mL/min (>60); Est Glom Filt Rate - Afr Amer 33 mL/min (>60); Globulin 4.6 g/dL (2.2-4.2); Glucose 148 mg/dL (74-106); Lipase 123 U/L (73-393); Potassium 5.8 mmol/L (3.5-5.1); Protein, Total 7.7 g/dL (6.4-8.2); Sodium Level 138 mmol/L (136-145)
[2022-05-30 14:48] VITALS: BP 119/56; PULSE 64; RESP 16; TEMP 36.4; O2SAT 97; BMI 31.3
--- NOTE | 2022-05-30 15:00 | CT_ITS ---
INDICATION: RUQ ABDOMINAL PAIN EXAMINATION: CT ABDOMEN AND PELVIS WITH CONTRAST - CT Abdomen And Pelvis W/ Contrast Injection TECHNIQUE: Helically acquired images were obtained of the abdomen and pelvis following IV contrast. A radiation dose optimization technique was used for this scan. IV Contrast dosage and agent: 126 cc Isovue-370 Oral contrast: Gastrografin COMPARISON: 10/21/2021 FINDINGS: LOWER CHEST: Right lung base plate like atelectasis. No cardiomegaly or pericardial effusion. LIVER: Homogeneous. No focal mass. GALLBLADDER AND BILIARY TREE: There is a 9 x 6 x 4.6 cm multiloculated rim-enhancing fluid collection in the gallbladder fossa with surrounding inflammatory fat stranding. No intra- or extrahepatic biliary ductal dilation. PANCREAS: No focal cystic or solid mass. SPLEEN: Normal size without focal cystic or solid mass. ADRENAL GLANDS: No nodules. KIDNEYS AND URETERS: Mildly atrophic with multiple cysts. No hydronephrosis. PERITONEUM: No ascites or free air. BOWEL: No evidence of acute appendicitis. No stomach or bowel distension. No focal inflammatory change. LYMPH NODES: No enlarged mesenteric or retroperitoneal lymph nodes. VESSELS: Aorta is non-dilated. URINARY BLADDER: Unremarkable. REPRODUCTIVE ORGANS: No pelvic masses. ABDOMINAL WALL: No discrete abdominal or pelvic wall hernia. BONES: Degenerative change throughout the thoracolumbar spine. CT/Abdomen/Pelvis WITH Contrast IMPRESSION: Gallbladder fossa multiloculated abscess. Electronically Signed: Eric Springer MD at 17:47 EST ,
[2022-05-30 16:02] VITALS: BP 119/56; PULSE 62; RESP 16; O2SAT 98
== END | disposition home or self-care (01) ==
PROVIDERS: PCP Family Medicine; Referring Provider Family Medicine; Visit Provider Family Medicine
DX: R10.11 Right upper quadrant pain (principal)
CPT/HCPCS: 36415; 74177; 76705; 80053; 82150; 83690; 85025; 87040; J7040; Q9967

== ENCOUNTER 2022-06-03 07:38 | Outpatient (CLI) | payer MEDICARE, OTHER, SELFPAY ==
[2022-06-03] VITALS (10 sets, daily range): BP systolic 86–130; BP diastolic 51–96; PULSE 78–84; RESP 13–23; TEMP 36.3; O2SAT 93–100; BMI 31.3
--- NOTE | 2022-06-03 07:43 | CT_ITS ---
PROCEDURE: CT DIRECTED ABSCESS DRAINAGE, PERITONEAL DATE OF EXAMINATION: 06/03/2022. INDICATION: Male, 71 years old. Status post cholecystectomy. Abscess in the gallbladder fossa. PHYSICIAN: Keaton Vasquez M.D. CONSENT: Written informed consent was obtained having explained the risks, benefits and alternatives in detail with the patient who accepted the risks and agreed to proceed. Laboratory review and clinical assessment was performed. CONSCIOUS SEDATION PROTOCOL: The Drugs used were: 2 mg Versed, IV., and 50 mcg Fentanyl, IV. The sedation time was: 24 minutes. The conscious sedation protocol was independently monitored. RADIATION DOSAGE (If Supplied By Facility): CTDIvol = ( 29 ) mGy, DLP = ( 925.39 ) mGycm TECHNIQUE: CT sections were made through the abdomen and pelvis revealing an abscess in the gallbladder fossa. The skin surface was prepped and draped in a sterile fashion. Puncture of this collection was performed initially with a 5 Chadian catheter and fluid was aspirated. 8 Chadian Drainage catheter was then inserted into the collection and formed into position. Additional fluid was aspirated for a total of approximately 90 cc of cloudy red fluid. The catheter was sutured into position to allow for continued drainage. Followup CT sections reveals good position of the catheter. CT/CT Guidance Abscess Drg w/Cath IMPRESSION: 1. CT directed drainage of a fluid collection using CT image guidance and image documentation as described. 2. Conscious Sedation protocol utilized with independent monitoring Electronically Signed: Keaton Vasquez MD at 9:53 EST ,
[2022-06-03 08:00] LABS: Platelet Count 341 K/mm3 (150-450)
[2022-06-03 08:11] LABS: International Normalized Ratio 1.2; Prothrombin Time (Protime)PT. 14.6 SECONDS (11.7-14.9)
[2022-06-03 08:12] LABS: Partial Thromboplast Time 33.5 Seconds (24.1-36.2)
[2022-06-03] MEDS: Midazolam 2 MG/2 ML Syringe IV (08:53)
[2022-06-03] MEDS: fentaNYL 100 MCG/2 ML Ampul IV (08:55)
[2022-06-03] MEDS: Lidocaine 2% (20 ml mdv) 20 ML Vial INFILT (09:09)
== END 2022-06-03 23:59 | disposition home or self-care (01) ==
PROVIDERS: Radiology Diagnostic Radiology; PCP Family Medicine; Referring Provider Surgery; Visit Provider Surgery
DX: K81.0 Acute cholecystitis (principal); R10.11 Right upper quadrant pain
CPT/HCPCS: 49406 ×2; 36415; 75989; 85049; 85610; 85730; 87070; 87075; 87205; 99156; J7050; A4216

== ENCOUNTER → 2022-06-13 | Outpatient (CLI) | payer MEDICARE, OTHER, SELFPAY ==
[2022-06-13 16:50] LABS: Absolute Lymphocyte Count 1.25 X10^3/uL (0.83-4.51); Absolute Neutrophil Count 11.2 X10^3/uL (2.0-7.7); Basophil# 0.09 X10^3/uL; Basophil% 0.7 % (0-1); Eosinophil# 0.46 X10^3/uL; Eosinophils% 3.3 % (0-5); Hematocrit 41.3 % (40-54); Hemoglobin 12.9 g/dL (13.0-16.5); Lymphocyte # 1.25 X10^3/ul (0.83-4.51); Lymphocyte % 9.1 % (19-41); Mean Corp Hgb Conc 31.2 g/dL (32-36); Mean Corpuscular Hgb 29.3 pg (27.0-32.0); Mean Corpuscular Volume 93.9 fL (80-94); Mean Platelet Vol. 10.9 fl (6.2-12.0); Monocyte# 0.72 X10^3/uL; Monocyte% 5.2 % (0-10); NRBC Flagged by Analyzer 0 % (0-5); Neutrophil # 11.18 X10^3/uL (2.7-7.7); Neutrophil % 81.2 % (47-70); Platelet Count 288 K/mm3 (150-450); RBC Distribution Width CV 12.4 % (11.6-14.6); RBC Distribution Width SD 42.7 fl (35.1-43.9); White Blood Count 13.8 K/mm3 (4.4-11.0)
[2022-06-13 17:11] LABS: ALB/GLOB Ratio 0.7 RATIO (0.9-2.4); AST(SGOT) 15 U/L (15-37); Alanine Aminotransfer ALT/SGPT 22 U/L (16-61); Alkaline Phosphatase 158 U/L (45-117); Anion Gap 7 (5-15); BUN 28 mg/dL (7-18); Calcium,Total 10.6 mg/dL (8.5-10.1); Chloride 109 mmol/L (98-107); Creatinine, Serum 1.75 mg/dL (0.70-1.30); EST Glomerular Filtration Rate 41 mL/min (>60); Est Glom Filt Rate - Afr Amer 50 mL/min (>60); Globulin 4.4 g/dL (2.2-4.2); Glucose 238 mg/dL (74-106); Potassium 5.6 mmol/L (3.5-5.1); Protein, Total 7.4 g/dL (6.4-8.2); Sodium Level 141 mmol/L (136-145)
== END | disposition home or self-care (01) ==
LOC: LAB 16:23
PROVIDERS: PCP Family Medicine; Referring Provider Surgery; Visit Provider Surgery
DX: K81.0 Acute cholecystitis (principal); Z90.49 Acquired absence of other specified parts of digestive tract
CPT/HCPCS: 36415; 80053; 85025

== ENCOUNTER → 2022-06-20 | Outpatient (CLI) | payer MEDICARE, OTHER, SELFPAY ==
[2022-06-20 10:46] LABS: ALB/GLOB Ratio 0.9 RATIO (0.9-2.4); AST(SGOT) 17 U/L (15-37); Alanine Aminotransfer ALT/SGPT 23 U/L (16-61); Albumin, Serum 3.4 g/dL (3.2-5.0); Alkaline Phosphatase 144 U/L (45-117); Anion Gap 5 (5-15); BUN 26 mg/dL (7-18); BUN/Creat Ratio 17.1 RATIO (10-20); Calcium,Total 10.7 mg/dL (8.5-10.1); Chloride 110 mmol/L (98-107); Creatinine, Serum 1.52 mg/dL (0.70-1.30); EST Glomerular Filtration Rate 48 mL/min (>60); Est Glom Filt Rate - Afr Amer 59 mL/min (>60); Globulin 3.9 g/dL (2.2-4.2); Glucose 77 mg/dL (74-106); Magnesium 1.6 mg/dL (1.6-2.6); Potassium 5.3 mmol/L (3.5-5.1); Protein, Total 7.3 g/dL (6.4-8.2); Sodium Level 142 mmol/L (136-145)
== END | disposition home or self-care (01) ==
LOC: LAB 09:26
PROVIDERS: PCP Family Medicine; Referring Provider Family Medicine; Visit Provider Family Medicine
DX: E87.5 Hyperkalemia (principal)
CPT/HCPCS: 36415; 80053; 83735

== ENCOUNTER → 2022-06-23 | Outpatient (CLI) | payer MEDICARE, OTHER, SELFPAY ==
--- NOTE | 2022-06-23 09:34 | NM_ITS ---
CLINICAL: 72-year-old male with history of right upper quadrant pain status post cholecystectomy. RADIONUCLIDE HEPATOBILIARY SCINTIGRAPHY COMPARISON: CT of the abdomen-pelvis report 05/30/2022, abdominal ultrasound report 05/30/2022. FINDINGS: Following the intravenous administration of 5.6 mCi of 99m Tc Mebrofenin, hepatobiliary images reveal: 1. Relatively prompt and homogeneous radiopharmaceutical concentration is noted by a normal sized liver. No parenchymal defects are identified. 2. Gallbladder activity is not identified during 60 minutes of sequential imaging commensurate with known history of prior cholecystectomy. 3. Small intestinal tract is observed at 11 minutes post radiopharmaceutical administration. 4. Washout of the radiopharmaceutical by the hepatic parenchyma appears qualitatively normal.. NM/Hepatobilliary Imaging IMPRESSION: 1. ABNORMAL 99m Tc Mebrofenin hepatobiliary imaging examination. A. Nonvisualization of the gallbladder is consistent with prior cholecystectomy. B. Further evaluation of this individual may be undertaken utilizing pre-examination CCK quantitative hepatobiliary scintigraphy to exclude the presence of post cholecystectomy syndrome-Sphincter of Oddi dysfunction. (Chapin et al, J Nucl Med 33: 1216, 1992). Electronically Signed: Alejandro Ochoa, at 22:03 EST ,
== END | disposition home or self-care (01) ==
LOC: NM 09:33
PROVIDERS: PCP Family Medicine; Visit Provider Surgery
DX: K81.0 Acute cholecystitis (principal); R10.9 Unspecified abdominal pain
CPT/HCPCS: 78226; A9537

== ENCOUNTER → 2023-10-24 | Outpatient (CLI) | payer MEDICARE, OTHER, SELFPAY ==
[2023-10-24 12:04] LABS: Absolute Neutrophil Count 4.8 X10^3/uL (2.0-7.7); Basophil# 0.05 X10^3/uL; Basophil% 0.8 % (0-1); Eosinophil# 0.25 X10^3/uL; Eosinophils% 3.8 % (0-5); Hematocrit 39.3 % (40-54); Hemoglobin 12.9 g/dL (13.0-16.5); Lymphocyte % 15.1 % (19-41); Mean Corp Hgb Conc 32.8 g/dL (32-36); Mean Corpuscular Volume 91.4 fL (80-94); Mean Platelet Vol. 11.6 fl (6.2-12.0); Monocyte# 0.48 X10^3/uL; Monocyte% 7.2 % (0-10); NRBC Flagged by Analyzer 0 % (0-5); Neutrophil # 4.81 X10^3/uL (2.7-7.7); Neutrophil % 72.5 % (47-70); Platelet Count 171 K/mm3 (150-450); RBC Distribution Width CV 12.3 % (11.6-14.6); White Blood Count 6.6 K/mm3 (4.4-11.0)
[2023-10-24 12:15] LABS: ALB/GLOB Ratio 1.1 RATIO (0.9-2.4); AST(SGOT) 34 U/L (15-37); Alanine Aminotransfer ALT/SGPT 49 U/L (16-61); Albumin, Serum 3.9 g/dL (3.2-5.0); Alkaline Phosphatase 167 U/L (45-117); Anion Gap 7 (5-15); BUN 46 mg/dL (7-18); BUN/Creat Ratio 23.1 RATIO (10-20); Calcium,Total 9.9 mg/dL (8.5-10.1); Chloride 107 mmol/L (98-107); Cholesterol 130 mg/dL (200); Creatinine, Serum 1.99 mg/dL (0.70-1.30); EST Glomerular Filtration Rate 35 mL/min (>60); Est Glom Filt Rate - Afr Amer 43 mL/min (>60); Globulin 3.4 g/dL (2.2-4.2); Glucose 133 mg/dL (74-106); High Density Lipoprotein 41 mg/dL; Potassium 4.7 mmol/L (3.5-5.1); Protein, Total 7.3 g/dL (6.4-8.2); Sodium Level 136 mmol/L (136-145); Triglycerides 195 mg/dL; Very Low Density Lipoprotein 39 mg/dL (5-40)
[2023-10-24 12:25] LABS: Hemoglobin A1c 9.4 % (3.8-5.6)
== END | disposition home or self-care (01) ==
LOC: MFPLAB 10:06
PROVIDERS: PCP Family Medicine; Visit Provider Family Medicine
DX: E11.9 Type 2 diabetes mellitus without complications (principal); I10 Essential (primary) hypertension
CPT/HCPCS: 36415; 80053; 80061; 83036; 85025

== ENCOUNTER → 2024-02-14 | Outpatient (CLI) | payer MEDICARE, OTHER, SELFPAY ==
--- OUTSIDE RECORDS SUMMARY | 2024-02-14 11:22 | XMS RPT_ITS | CCD ---
Author Organization [facility] Care Team Providers Care Ordnance Artificer Name Role Phone Massimo Dave Unavailable Unavailable Unavailable Unavailable Unavailable Massimo Dave Unavailable Blake Oates Unavailable Unavailable Joshua Schmid Unavailable Unavailabl e Amarjit aBssett Attending Unavailable Amarjit Bassett Referring Unavailable Medications Current Medications Medication Drug Class(es) Dates Sig (Normalized) Sig (Original) metFORMIN hydrochloride 500 mg / SITagliptin 50 mg oral tablet (16 sources) Biguanide, Dipeptidyl Peptidase 4 Inhibitor take 1 tablet by mouth twice daily Janumet 50 mg-500 mg oral tablet ; 1 tab(s) orally 2 times a day Quantity: 0 Refills: 0 Ordered: 10-Oct-2019 Hauenstein, Alba Generic Substitution Allowed take 1 tablet by jyacob th twice daily at mealtime Janumet 50-1000 MG Oral Tablet TAKE 1 TABLET TWICE DAILY WITH MEALS. Quantity: 180 Refills: 3 Ordered: 12-Mar-2021 Massimo Dave DO Active rosuvastatin (16 sources) HMG-CoA Reductase Inhibitor rosu vastatin ; orally once a day Quantity: 0 Refills: 0 Ordered: 10-Oct-2019 Hauenstein, Alba Generic Substitution Allowed Crestor 10 MG Or al Tablet Quantity: 0 Refills: 0 Ordered: 16-Nov-2017 DO Active Completed/Discontinued Medications Medication Drug Class(es) Dates Sig (Normalized) Sig (Original) carvedilol 25 mg oral tablet (16 sources) alpha-Adrenergic Rehana, beta-Adrenergic Rehana Start: 02-03-2021 take 1 tablet by mouth twice daily Carvedilol 25 MG Oral Tablet TAKE 1 TABLET TWICE DAILY. Quantity: 60 Refills: 6 Ordered: 03-Feb-2021 Massimo Dave DO Start : 03-Feb-2021 Active cetirizine hydrochloride 10 mg oral tablet (6 sources) Histamine-1 Receptor Antagonist Start: 03-22-2021 take 1 tablet by mouth once daily ZyrTEC Allergy 10 MG Oral Tablet TAKE 1 TABLET BY MOUTH EVERY DAY Quantity: 30 Refills: 3 Ordered: 22-Mar-2021 Massimo Dave DO Start : 22-Mar-2021 Active famotidine 20 mg oral tablet (6 sources) Histamine-2 Receptor Antagonist Start: 03-22-2021 take 1 tablet by mouth at bedtime Famotidine 20 MG Oral Tablet take 1 tablet by mouth at bedtime Quantity: 30 Refills: 0 Ordered: 22-Mar-2021 Massimo Dave DO Start : 22-Mar-2021 Active hydroCHLOROthiazide 25 mg / losartan potassium 100 mg oral tablet (16 sources) Thiazide Diuretic, Angiotensin 2 Receptor Rehana Start: 07-29-2019 take 1 tablet by mouth once daily Losartan Potassium-HCTZ 100-25 MG Oral Tablet Take 1 tablet daily Quantity: 90 Refills: 1 Ordered: 19-Oct-2020 Massimo Dave DO Start : 29-Jul-2019 Active 3 ml insulin aspart, human 100 unt/ml pen injector (14 sources) Insulin Analog NovoLOG FlexPen 100 UNIT/ML Subcutaneous Solution Pen-injector Inject 3 units subq for every blood sugar 25 units > 150 mg/dl Quantity: 1 Refills: 0 Ordered: 30-Mar-2021 Massimo Dave DO Active NovoLOG FlexPen 100 UNIT/ML Subcutaneous Solution Pen-injector Quantity: 0 Refills: 0 Ordered: 04-Feb-2019 DO Active 3 ml insulin degludec 200 unt/ml pen injector (16 sources) Insulin Analog Start: 10-07-2019 inject 200 [IU] by subcutaneous injection once daily Tresiba FlexTouch 200 UNIT/ML Subcutaneous Solution Pen-injector INJECT 200 UNITS DAILY Quantity: 45 Refills: 3 Ordered: 07-Oct-2020 Massimo Dave DO Start : 07-Oct-2019 Active inject 90 [IU] by barba bcutaneous injection once daily Tresiba 100 units/mL subcutaneous solution ; 90 unit(s) subcutaneous once a day Quantity: 0 Refills: 0 Ordered: 10-Oct-2019 Hauenstein, Alba Generic Substitution Allowed Medrol Dosepak 4 mg oral tablet (1 source) Start: 10-05-2021 Medrol Dosepak 4 mg oral tablet ; 1 cap(s) orally Quantity: 1 Refills: 0 Ordered: 05-Oct-2021 Krupa Kingsley Start: 05-Oct-2021 Generic Substitution Allowed Comments: It is very important that you take or use this exactly as directed. Do not skip doses or discontinue unless directed by your doctor.Obtain medical advice before taking any non-prescription drugs as some may affect the action of this medication.Take with food or milk. Comment on above: It is very important that you take or use this exactly as directed. Do not skip doses or discontinue unless directed by your doctor.Obtain medical advice before taking any non-prescription drugs as some may affect the action of this medication.Take with food or milk. methylPREDNISolone 4 MG Oral Tablet Therapy Pack (6 sources) Start: 03-22-2021 methylPREDNISolone 4 MG Oral Tablet Therapy Pack Please follow instructions in package Quantity: 1 Refills: 0 Ordered: 22-Mar-2021 Massimo Dave DO Start : 22-Mar-2021 Active pioglitazone 15 mg oral tablet (14 sources) Peroxisome Proliferator Receptor alpha Agonist, Peroxisome Proliferator Receptor gamma Agonist, Thiazolidinedione take 1 tablet by mouth once daily Pioglitazone HCl - 15 MG Oral Tablet TAKE 1 TABLET ONCE DAILY. Quantity: 90 Refills: 1 Ordered: 23-Dec-2020 Massimo Dave DO Active Problems Problem Classification Problem Date Documented Date Episodic/Chronic Cataract (15 sources) Nuclear sclerotic cataract; Translations: [Senile nuclear sclerosis] Onset: 12-22-2023 Chronic Chronic kidney disease (14 sources) Chronic kidney disease stage 3A ; Translations: [Chronic kidney disease, Stage III (moderate)] Chronic Diabetes mellitus with complications (15 sources) Type 2 diabetes mellitus; Translations: [Diabetes with ophthalmic manifestations, type II or unspecified type, not stated as uncontrolled] Onset: 12-22-2023 Chronic Comment on above: Type 2 diabetes ryan itus with moderate nonproliferative diabetic retinopathy with macular edema, bilateral; Essential hypertension (15 sources) Hypertensive disorder; Translations: [Unspecified essential hypertension] Onset: 12-22-2023 Chronic Immunizations and screening for infectious disease (9 sources) Patient encounter status; Translations: [Other specified vaccination] Episodic Other circulatory disease (2 sources) Hypotensive episode; Translations: [Hypotension, unspecified] 10-05-2021 Episodic Other diseases of kidney and ureters (14 sources) Hyperkalemic renal tubular acidosis; Translations: [Other specified disorders resulting from impaired renal function] Chronic Other inflammatory condition of skin (7 sources) Itching of skin; Translations: [Unspecified pruritic disorder] 10-05-2021 Episodic Other nutritional; endocrine; and metabolic disorders (3 sources) Obesity; Translations: [Obesity, unspecified] Chronic Other nutritional; endocrine; and metabolic disorders (3 sources) Body mass index 30+ - obesity; Translations: [Body Mass Index 31.0-31.9, adult] Chronic Other screening for suspected conditions (not mental disorders or infectious disease) (4 sources) Other specified abnormal findings of blood chemistry; Translations: [LFT elevation] Episodic Unclassified (2 sources) ITCH 10-05-2021 Comment on above: ITCH Unclassified (2 sources) LOW BP 10-05-2021 Comment on above: LOW BP Unclassified (1 source) Pruritus 10-05-2021 Results Test Name Value Interpretation Reference Range Facility Clinical Event Noteon 2021 Clinical Event Note Clinical Event: Clinical Event Note: Details Pt presented to for generalized itching without rash and has a hx of same symptoms which was resolved with possibly corticosteroids. BP 70/30 manual L arm. Says BP readings at home have been reading similar occasionally. Referred for hypotension. States he is currently asymptomatic, at times at home he has been symptomatic. Is taking carvedilol 25 mg BID and has recently lost weight. Pt requested to transport himself. Electronic Signatures: Blake Oates ([facility]) (Signed 05-Oct-2021 10:36) Authored: Clinical Event Note Last Updated: 05-Oct-2021 10:36 by Blake Oates ([facility]) [facility] Provider Note - ED v3on 09-22 Provider Note - ED v3 Provider Note: Chart Review: HISTORY OF PRESENTING ILLNESS ALEJANDRO is a 71 year old Male and was seen by me at 05-Oct-2021 10:45 for a chief complaint of hypotension (was sent from urgent care for low BP 72/45, took it 3 times and was still low, pt does take HP meds an took them today, denies dizziness or light headed . pt was at urgent care for a itching rash unknown cause, similar episode one year ago and never able to find out cause. mason finally took itchy rash away last time, was concerned taking due to DM)(1). Triage Information: Most recent Vital Sign Value Date Temp (F): 97.4 10-05-2021 10:45 Temp (C): 36.3 10-05-2021 10:45 Heart Rate (beats/min): 72 10-05-2021 10:45 Respirations (breaths/min): 18 10-05-2021 10:45 SpO2 (%): 97 10-05-2021 10:45 BP Systolic (mm Hg): 113 10-05-2021 10:45 BP Diastolic (mm Hg): 72 10-05-2021 10:45 PAST MEDICAL HISTORY ALLERGIES/INTOLERANCES : No Known Allergies HEALTH HISTORY: Medical History Name:Hypertension Code:I10 Name:Diabetes Code:E11.9 Name:Colon polyp Code:K63.5 OUTPATIENT MEDICATIONS: Home Medications Review Status for Reconciliation: N/A Med Status: Patient Currently Takes Medications Drug Name: Tresiba 100 units/mL subcutaneous solution Instructions: 90 unit(s) subcutaneous once a day Drug Name: carvedilol 25 mg oral tablet Instructions: 1 tab(s) orally 2 times a day Drug Name: Janumet 50 mg-500 mg oral tablet Instructions: 1 tab(s) orally 2 times a day Drug Name: losartan-hydrochloroth iazide 100 mg-25 mg oral tablet Instructions: 1 tab(s) orally once a day Drug Name: rosuvastatin Instructions: orally once a day SIGNIFICANT EVENTS: Past Medical History Description:Diabetes Description:HTN MDM MDM/ED COURSE: PMH: Reviewed PSH: Reviewed Social History: Reviewed. Allergies reviewed. HPI: This is a 71 year old male with history of hypertension, diabetes, colon polyps who presents to the ED today with complaints of itching and hypotension. Patient states that for the last week he has had diffuse itching without a rash. He went to urgent care this morning for that and was found to have a low blood pressure. States he does not have any dizziness or lightheadedness. States he has a blood pressure monitor at home, his blood pressure medications were cut in half about 4 months ago due to hypotension. Follows with his primary care physician for his blood pressure control. Denies any new environmental exposure. States that he had similar itching about a year ago, after full work-up was prescribed steroids in the form of Medrol Dosepak. States that this took the itching away. REVIEW OF SYSTEMS: All other systems reviewed and negative except as listed in HPI. PHYSICAL EXAM: GENERAL: Vitals noted, no distress. Alert and oriented x 3. Non-toxic. NECK: Supple. No masses. No midline tenderness. No meningeal signs. CARDIAC: Regular rate, rhythm. No murmurs rubs or gallops. No JVD. PULMONARY: Lungs clear and equal bilaterally. No wheezes rales or rhonchi. No respiratory distress. ABDOMEN: Soft, nondistended, and nontender. EXTREMITIES: No peripheral edema. SKIN: No rash. Warm, dry, and intact. NEURO: No focal neurologic deficits. ED COURSE: This patient was seen and examined by myself independently. Blood pressure 113/72. Patient drove himself to the ED. He has no complaints of feeling dizzy or lightheaded. We will treat with Medrol Dosepak and have him follow with primary care physician for repeat blood pressure evaluation as well as follow-up for the itching. He is discharged home in a stable condition with computer instructions given and is encouraged to return to the ER for any new or worsening symptoms. DIAGNOSTIC IMPRESSION: #1 pruritis #2 hypotensive episode DISPOSITION Diagnosis/Annotation: ED Dx Name:Pruritus Code:L29.9 Name:Hypotensive episode Code:I95.9 Disposition: discharged Type: home CONSULT CRITICAL CARE TIME Is this a critically ill patient: no Electronic Signatures: Krupa Kingsley ([facility]) (Signed 05-Oct-2021 11:12) Authored: HPI, PMH, MDM/ED Course, Clinical Impression, Attestation, Chart Review, Scores Last Updated: 05-Oct-2021 11:12 by Krupa Kingsley ([facility]) References: 1. Data Referenced From Triage - ED 05-Oct-2021 10:45 Normal [facility] Risk Screen - Adult Emergenc yon 10-05-2021 Risk Screen - Adult Emergency Preferred Language: Preferred Language: Preferred Language for Discussing Health Care (patient/designee)Jonh goff Advanced Directives: Advance Directive/DNRyes Advance Directive typeLiving Will, Durable Power of Windows Admin for Healthcare Family Violence Adult: Abuse Screen: Are you or have you been threatened or abused physically, emotionally, or sexually by anyoneno Learning Assessment (Patient): Learning Assessment (Patient): Patient is Able to be Assessed for Learningyes Factors Influencing Readiness to Learnacuteness of illness Factors that Impact Ability to Learnnone Devices/Methods Used to Communicatenone Learning Preferencesaudio Cultural Considerationsnone Developmental Considerationsnone Anabaptist Considerationsnone Learning Assessment (Other Learner): Learning Assessment (Other Learner): Other learner availableno Pressure Injury/TB/Substance: Pressure Injury: Do you have a coughno Smoking Statusnever smoker Alcohol Usedenies Drug Usedenies Admission Risk Screen: Significant IndicatorsComplete CAGE: CAGE: Is this an injured patient at a Trauma Center ([facility]/[place]/[facility]/[place]): no Electronic Signatures: Alba Kiser (RN) (Signed 05-Oct-2021 10:51) Authored: Preferred Language, Advanced Directives, Family Violence Adult, Learning Assessment (Patient), Learning Assessment (Other Learner), Pressure Injury/TB/Substance, Pressure Injury, CAGE Last Updated: 05-Oct-2021 10:51 by Alba Kiser (QUINN) [facility] Triage - EDon 10-05-2021 Triage - ED Chart Review: ARRIVAL INFORMATION Mode of Arrival: private vehicle CHIEF COMPLAINT ALEJANDRO SMITH is a Male patient with a chief complaint of hypotension (was sent from urgent care for low BP 72/45, took it 3 times and was still low, pt does take HP meds an took them today, denies dizziness or light headed . pt was at urgent care for a itching rash unknown cause, similar episode one year ago and never able to find out cause. jeanettes finally took itchy rash away last time, was concerned taking due to DM). Triage Date/Time: 05-Oct-2021 10:45 LEONARD: 3 Pain Rating (0-10): 0 = None Vital Signs: Temperature: 97.4F ( 36.3C) Blood Pressure: 113/72 Mean: Heart Rate: 72 Respiratory Rate: 18 Pulse Oximetry: 97% on room air, no respiratory support. Height: 5 feet 9.00 inches. 175.2 CM Weight: 216.4 pounds. Calculated 98.2 kg. Calculated BMI (kg/m2): 31.992 Calculated BSA (m2) 2.19 Satnam Coma Scale: Best Eye Response: (E4) spontaneous Best Motor Response: (M6) obeys commands Best Verbal Response: (V5) oriented Satnam Score: 15 Allergies: no Patient has homicidal thoughts: no Risk Screens Suicide Risk Screen In the Past Month: Have you wished you were or wished you could go to sleep and not wake up no In the Past Month: Have you had any actual thoughts of killing yourself no In Your Lifetime: Have you ever done anything, started to do anything, or prepared to do anything to end your life no Hernandez Fall Scale Screening Has the patient fallen before (or is the patient in the ED as a result of a fall) has not had a fall Does the patient have an impaired gait does not have impaired gait Is the patient cognitively impaired not cognitively impaired Interventions: Hernandez Fall Interventions: LOW INTERVENTIONS: *patient oriented to surroundings and call system, * patient/family falls education completed and documented, *patients fall status communicated during bedside handoff, *whiteboard updated, *mode of toileting discussed with patient, *bed in low position with brakes locked, *call light in reach, * non-skid footwear TRAVEL HISTORY Travel History Coronavirus Screening: no exposure or symptoms(1) Travel Exposure History: NO travel to International locations in the past 30 days PAIN Pain Scale Used: LOUANN Pain Rating (0-10): 0 = None Past Medical History: Past Medical History Reviewedyes HTN: Past Medical History, Active Diabetes: Past Medical History, Active Electronic Signatures: Alba Kiser (QUINN) (Signed 05-Oct-2021 10:50) Authored: Quick Triage, Risk Screens, Pain, Travel History, Chart Review, Scores, Past Medical History Last Updated: 05-Oct-2021 10:50 by Alba Kiser (QUINN) References: 1. Data Referenced From Intake Note - Urgent Care 05-Oct-2021 10:03 [facility] Initial Visit (General Surge ry)on 05-10-2021 Initial Visit (General Surgery) Diagnoses/Problems Cholelithiasis (574.20) (K80.20) Provider Impressions , JonathonGonzalez Smith is a 70-year-old male with cholelithiasis. Being that he has no sign of biliary obstruction (T bili has never been elevated, no biliary dilation, no jaundice/scleral icterus/dark urine), I do not think cholestasis is the source of, nor will cholecystectomy resolve, his pruritus. I recommend work-up for an alternative etiology of the pruritus. That said, he has stones and is otherwise a relatively low risk surgical candidate. If these were to cause symptoms in the future (mostly post-prandial RUQ abdominal pain), we could re-evaluate for cholecystectomy at that time. Chief Complaint Pruritus History of Present IllnessMr. Smith is a 70-year-old male seen at the request of Dr. Dave for evaluation for cholestasis. He presented with pruritus. This initially began after a cortisone injection to his foot. It was thought possibly an allergic reaction. However, it persisted. The itching lasted for about 2 weeks. At that time, he denies any abdominal pain. He denies any nausea or vomiting. He denies any yellowing of the skin or eyes. He denies any dark-colored urine. He denies having any rash. The itching was all over his entire body. He had 1 similar episode many years ago that was very similar but lasted for a much shorter time. He had labs obtained and work-up which showed elevation of the alk phos at 227. Bilirubin was normal at 0.9. He subsequently had an ultrasound of the gallbladder. There was no biliary dilation, CBD measured 7 mm. The gallbladder was distended and contained multiple small stones and sludge. There was no wall thickening or pericholecystic fluid. Sonographic Hughes sign was negative. He has no previous abdominal surgery. Aside from this recent 2-week episode of pruritus, he denies any symptoms related to his gallstones. Specifically, he denies any postprandial abdominal pain or discomfort. He denies any nausea or vomiting after eating. He denies any family history of hepatobiliary or pancreatic malignancy. Review of Systems Constitutional: no fever, sweats, and chills Cardiovascular: No chest pain or palpitations Respiratory: No cough or shortness of breath Gastrointestinal: No abdominal pain. No nausea or vomiting. Genitourinary: no dark-colored urine Musculoskeletal: no weakness or swelling Integumentary: +pruritis. No jaundice. No rash. Neurological: no confusion Endocrine: no heat or cold intolerance Heme/Lymph: no easy bruising or bleeding Active Problems Cholelithiasis (574.20) (K80.20) Cholestasis (576.8) (K83.1) LFT elevation (790.6) (R79.89) Pruritus (698.9) (L29.9) Past Medical History BMI 31.0-31.9,adult (V85.31) (Z68.31) Cataract, nuclear sclerotic, both eyes (366.16) (H25.13) Chronic kidney disease, stage 3a (585.3) (N18.31) HTN (hypertension) (401.9) (I10) Type 2 diabetes mellitus with moderate nonproliferative diabetic retinopathy with macular edema, bilateral (250.50,362.05,362.07) (E11.3313) Surgical History History of Colonoscopy 05/[address] Farfan Family History Family history of hypertension (V17.49) (Z82.49) Family history of macular degeneration (V19.19) (Z83.518) Family history of Type 2 diabetes mellitus with other circulatory complication Family history of hypertension (V17.49) (Z82.49) Family history of Type 2 diabetes mellitus with other circulatory complication Social History Never smoker No alcohol use Allergies No Known Allergies Recorded By: Be Degroot; 11/16/2017 11:34:28 AM Current Meds Medication NameInstruction Carvedilol 25 MG Oral TabletTAKE 1 TABLET TWICE DAILY. Crestor 10 MG Oral Tablet Janumet 50-1000 MG Oral TabletTAKE 1 TABLET TWICE DAILY WITH MEALS. Losartan Potassium-HCTZ 100-25 MG Oral TabletTake 1 tablet daily NovoLOG FlexPen 100 UNIT/ML Subcutaneous Solution Pen-injectorInject 3 units subq for every blood sugar 25 units > 150 mg/dl Pioglitazone HCl - 15 MG Oral TabletTAKE 1 TABLET ONCE DAILY. Tresiba FlexTouch 200 UNIT/ML Subcutaneous Solution Pen-injectorINJECT 200 UNITS DAILY Vitals Vital Signs Recorded: [id number] 01:24PM Heart Rate80 [id number] Height5 ft 8 in Vkcrlx259 lb BMI Hkdcwdzvgv54.3 kg/m2 BSA Calculated2.12 Tobacco Useb) No Fall Screeninga) No falls within the last year Physical Exam Constitutional: No acute distress, conversant, pleasant Neurologic: alert and oriented Psych: appropriate affect Eyes, Ears, Nose, Mouth and Throat: mucus membranes moist, no scleral icterus Pulmonary: No labored breathing, lungs clear bilaterally Cardiovascular: Regular rate and rhythm Abdomen: soft, non-tender, non-distended, BMI 31, no surgical scars Musculoskeletal: Moves all extremities, warm, no edema Skin: No jaundice Results/Data LFTs from 04/05/2021 reviewed: Alk phos 227, AST 20, ALT 47, T bili 0.9 The trend of these LFTs were reviewed dating back to 01/28/2019, james (more content not included)... Normal [employer] BASIC METABOLIC PANELon 12-3 Anion gap [Moles/Vol] 12 mmol/L Normal - [facility] Comment on above: Performed By: #### B MP #### [address] [address] Calcium [Mass/Vol] 10.1 mg/dL Normal 8.6 - 10.3 [facility] Comment on above: Performed By: #### B MP #### [address] [address] Chloride [Moles/Vol] 106 mmol/L Normal 98 - 107 [facility] Comment on above: Performed By: #### B MP #### [address] [address] Creatinine [Mass/Vol] 2.18 mg/dL High 0.50 - 1.30 [facility] Comment on above: Performed By: #### B MP #### [address] [address] GFR- AM. 36 mL/min/1.73m2 Abnormal >60 [facility] Comment on above: Result Comment: CALC ULATIONS OF ESTIMATED GFR ARE PERFORMED USING THE MDRD STUDY EQUATION FOR THE IDMS-TRACEABLE CREATININE METHODS. CLIN CHEM 2007;53:766-72 Performed By: #### B MP #### [address] [address] GFR-NON AM. 30 mL/min/1.73m2 Abnormal >60 [facility] Comment on above: Performed By: #### B MP #### [address] [address] Glucose [Mass/Vol] 72 mg/dL Low 74 - 99 [facility] Comment on above: Performed By: #### B MP #### [address] [address] HCO3 (Bld) [Moles/Vol] 23 mmol/L Normal 21 - 32 [facility] Comment on above: Performed By: #### B MP #### [address] [address] Potassium [Moles/Vol] 4.6 mmol/L Normal 3.5 - 5.3 [facility] Comment on above: Performed By: #### B MP #### [address] [address] Sodium [Moles/Vol] 136 mmol/L Normal 136 - 145 [facility] Comment on above: Performed By: #### B MP #### [address] [address] Urea nitrogen [Mass/Vol] 36 mg/dL High 6 - 23 [facility] Comment on above: Performed By: #### B MP #### [address] [address] US GALLBLADDERon 04-20-2021 US GALLBLADDER Patient Name: ALEJANDRO SMITH STUDY: US GALLBLADDER; 04/20/2021 7:17 am INDICATION: pruritis, elevated in lfts L29.9: Pruritus R79.89: LFT elevation. COMPARISON: None. ACCESSION NUMBER(S): [id number] ORDERING CLINICIAN: MASSIMO DAVE TECHNIQUE: Multiple images of the abdomen were obtained. FINDINGS: LIVER: The echogenicity of the liver is within normal limits. There is no hepatic mass. The sagittal dimension of the right lobe of the liver is 18.7 cm. GALLBLADDER: The gallbladder is distended measuring 12 cm in length The gallbladder wall is not thickened. There are multiple layering mobile gravel-like stones. There is sludge. There is no pericholecystic fluid. BILE DUCTS: There is no intrahepatic biliary dilatation. The common bile duct is nondilated measuring 0.7 cm. PANCREAS: The pancreas is unremarkable. RIGHT KIDNEY: The right kidney is normal in size measuring 12.1 cm in length. The echogenicity of the cortex is within normal limits. There is a 2.4 cm simple right renal cyst. There is a 1.3 cm simple right renal cyst. There is a 0.4 cm cyst with layering milk of calcium along the wall. This is a Bosniak 2 renal cyst. There is no intrarenal calculus or hydronephrosis. IMPRESSION: 1. Simple right renal cysts. 0.4 cm Bosniak 2 right renal cyst. 2. Distended gallbladder with mobile gallstones and sludge; no sonographic Hughes sign. Electronically signed by: RILEY CHOI MD [facility] PANELon 2020 Albumin [Mass/Vol] 4.1 g/dL Normal 3.4 - 5.0 [facility] Comment on above: Performed By: #### C MP #### [address] [address] ALP [Catalytic activity/Vol] 227 U/L High 33 - 136 [facility] Comment on above: Performed By: #### C MP #### [address] [address] ALT [Catalytic activity/Vol] 47 U/L Normal 10 - 52 [facility] Comment on above: Result Comment: Shaniqua ents treated with Sulfasalazine may generate falsely decreased results for ALT. Performed By: #### C MP #### [address] [address] Anion gap [Moles/Vol] 12 mmol/L Normal 10 - 20 [facility] Comment on above: Performed By: #### C MP #### [address] [address] AST [Catalytic activity/Vol] 20 U/L Normal 9 - 39 [facility] Comment on above: Performed By: #### C MP #### [address] [address] Bilirubin [Mass/Vol] 0.9 mg/dL Normal 0.0 - 1.2 [facility] Comment on above: Performed By: #### C MP #### [address] [address] Calcium [Mass/Vol] 10.4 mg/dL High 8.6 - 10.3 [facility] Comment on above: Performed By: #### C MP #### [address] [address] Chloride [Moles/Vol] 103 mmol/L Normal 98 - 107 [facility] Comment on above: Performed By: #### C MP #### [address] [address] Creatinine [Mass/Vol] 2.31 mg/dL High 0.50 - 1.30 [facility] Comment on above: Performed By: #### C MP #### [address] [address] GFR- AM. 34 mL/min/1.73m2 Abnormal >60 [facility] Comment on above: Result Comment: CALC ULATIONS OF ESTIMATED GFR ARE PERFORMED USING THE MDRD STUDY EQUATION FOR THE IDMS-TRACEABLE CREATININE METHODS. CLIN CHEM 2007;53:766-72 Performed By: #### C MP #### [address] [address] GFR-NON AM. 28 mL/min/1.73m2 Abnormal >60 [facility] Comment on above: Performed By: #### C MP #### [address] [address] Glucose [Mass/Vol] 155 mg/dL High 74 - 99 [facility] Comment on above: Performed By: #### C MP #### [address] [address] HCO3 (Bld) [Moles/Vol] 26 mmol/L Normal 21 - 32 [facility] Comment on above: Performed By: #### C MP #### [address] [address] Potassium [Moles/Vol] 5.4 mmol/L High 3.5 - 5.3 [facility] Comment on above: Performed By: #### C MP #### [address] [address] Protein [Mass/Vol] 7.1 g/dL Normal 6.4 - 8.2 [facility] Comment on above: Performed By: #### C MP #### [address] [address] Sodium [Moles/Vol] 136 mmol/L Normal 136 - 145 [facility] Comment on above: Performed By: #### C MP #### [address] [address] Urea nitrogen [Mass/Vol] 54 mg/dL High 6 - 23 [facility] Comment on above: Performed By: #### C MP #### [address] [address] Laboratory - Chemistry and C hemistry - challengeon 04-05-2021 Albumin BCP dye [Mass/Vol] 4.1 g/dL 3.4 - 5.0 [facility] Work Phone: [phone] ALP [Catalytic activity/Vol] 227 U/L above high threshold 33 - 136 [facility] Work Phone: [phone] ALT With P-5'-P [Catalytic activity/Vol] 47 U/L 10 - 52 [facility] Work Phone: [phone] Comment on above: Patients treated wit h Sulfasalazine may generate falsely decreased results for ALT. Anion gap [Moles/Vol] 12 mmol/L 10 - 20 [facility] Work Phone: [phone] AST With P-5'-P [Catalytic activity/Vol] 20 U/L 9 - 39 [facility] Work Phone: [phone] Bilirubin [Mass/Vol] 0.9 mg/dL 0.0 - 1.2 [facility] Work Phone: [phone] Calcium [Mass/Vol] 10.4 mg/dL above high threshold 8.6 - 10.3 [facility] Work Phone: [phone] Chloride [Moles/Vol] 103 mmol/L 98 - 107 [facility] Work Phone: [phone] CO2 [Moles/Vol] 26 mmol/L 21 - 32 [facility] Work Phone: [phone] Creatinine [Mass/Vol] 2.31 mg/dL above high threshold See Below [facility] Work Phone: [phone] Comment on above: Reference Range: 0.5 0 - 1.30 Glucose [Mass/Vol] 155 mg/dL above high threshold 74 - 99 [facility] Work Phone: [phone] Potassium [Moles/Vol] 5.4 mmol/L above high threshold 3.5 - 5.3 [facility] Work Phone: [phone] Protein [Mass/Vol] 7.1 g/dL 6.4 - 8.2 [facility] Work Phone: [phone] Sodium [Moles/Vol] 136 mmol/L 136 - 145 [facility] Work Phone: Urea nitrogen [Mass/Vol] 54 mg/dL above high threshold 6 - 23 [facility] Work Phone: No Panel Informationon 04-05 34 {mL/min/1.73m2} Abnormal >60 [facility] Work Phone: Comment on above: CALCULATIONS OF PATTI MATED GFR ARE PERFORMED USING THE MDRD STUDY EQUATION FOR THE IDMS-TRACEABLE CREATININE METHODS. CLIN CHEM 2007;53:766-72 28 {mL/min/1.73m2} Abnormal >60 [facility] Work Phone: Blood Pressure Cuff Sizeon 1 05-31-2020 Fall risk assessment a) No falls within the last year [facility] Work Phone: Tobacco use status [facility] b) No [facility] Work Phone: Blood Pressure Cuff Size Adult [facility] Work Phone: Medicare Annual Wellness Vis [place] 03-30-2021 Medicare Annual Wellness Visit *Chief Complaint 70 y/o male presents for Medicare wellness and to go over labs Adult Risk Screening Initial Fall Risk Screening: ALEJANDRO has not fallen in the last 6 months. Tobacco Screening: ALEJANDRO does not use tobacco. History of Present Illness The patient is being seen for the subsequent annual wellness visit. Past Medical, Surgical and Family History: reviewed and updated in chart. Interval History: Patient has not been hospitalized previously. Medications and Supplements: Medications and supplements, including calcium and vitamins reviewed and updated in chart. No, the patient is not using opioids. Health Risk Assessment: During the past 4 weeks: How much have you been bothered by feeling anxious, depressed, irritable or sad, downhearted or blue? Not at all. Has your physical and emotional health limited your social activities with family, friends, neighbors or groups? Slightly. In general bodily pain: No pain. Was someone available to help you if you needed or wanted help: Yes, as much as I wanted. The hardest physical activity you could do for at least 2 minutes: Heavy. Yes, can get to places out of walking distance without help. Yes, can shop for groceries or clothes without help. Yes, does prepare meals. Yes, does housework without help. Yes, handles money without help. Does not need help eating, bathing, dressing, or getting around home. Rates health in general: Good. How have things been going for you? Pretty good. Having difficulties driving a car: No. Always fastens seatbelt when in a car: Yes, usually. Has fallen or gotten dizzy when standing up: Never Sexual problems: Never Has trouble eating: Never Has problems with teeth or dentures: Never Has problems using the telephone: Never Tired or fatigued: Never No, has not fallen 2 or more times in the past year. No, not afraid of falling. Number of drinks of wine, beer or other alcoholic beverages: 1 drink or less per week. Exercise for about 20 minutes 3 or more days a week: No, I usually do not exercise this much. Have you been given any information to help you with the following: Yes, has given information regarding hazards in the home that might hurt you. Yes, has been given information regarding keeping track of medications. Do you have trouble taking medicines the way told to take them: I always take them as prescribed. Confidence in control and management of most health problems: Somewhat cofident. Tobacco use: Non-User Alcohol use: User Illicit drug use: Non-User Current diet: Diabetic Diet, does consume adequate fluids and does consume caffeine. Exercise Frequency: infrequently. Depression/Suicide Screening: . During the past 2 weeks, the patient has not felt down, depressed or hopeless. During the past 2 weeks, the patient has not felt little interest or pleasure in doing things. Hearing Impairment: none. Cognitive Impairment: No cognitive impairment observed. Bathing: performs independently. Dressing: performs independently. Walking: performs independently. Toileting: performs independently. Feeding: performs independently. Personal Hygiene: performs independently. Bowels: continent. Bladder: continent. Managing Finances: performs independently. Shopping: performs independently. Managing Medications: performs independently. Housework / Basic Home Maintenance: performs independently. Handling Transportation: performs independently. Preparing Meals: performs independently. Using the Telephone/ Communication Devices: performs independently. Falls Risk Screening:. ALEJANDRO has not fallen in the last 6 months. Home safety risk factors: none. Advance directives:. Advance Directives discussed, verbal or written information provided if indicated. Patient has living will. Patient has healthcare POA. Patient's End of Life Decisions: I agree to follow the patient's decisions. Patient is here today for MV and follow up on Pruritis that he was having last week. Pt had been having all pruritus. I had given him Pepcid and zyrtec and if that did not helped then I wanted him to take prednisone taper. Then blood sugars did increase, he had repeat bloodwork which showed blood sugar of 427, K 6, elevated lfts He states that all this started after he had the injection to his foot. Review of Systems Integumentary: +itching. 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 Normal Touchworks ARNALDO-WITH REFLEX TO ENAon ARNALDO WITH REFLEX TO MALENA Negative Normal NEGATIVE [facility] Comment on above: Result Comment: The Antinuclear Antibody (ARNALDO) test was performed using indirect immunofluorescence assay with HEp-2 cells slide. Performed By: #### A NA2 #### [facility] [address] [place] [id number] HEPATITIS PANEL,ACUTE (HCFA) on 03-27-2021 HEPATITIS A AB-IGM Non-Reactive Normal NONREACTIVE [facility] Comment on above: Result Comment: Biot in interference may cause falsely decreased results. Patients taking a Biotin dose of up to 5 mg/day should refrain from taking Biotin for 24 hours before sample collection. Providers may contact their local laboratory for further information. Performed By: #### H EPA2 #### [facility] [address] [place] [address] HEPATITIS B CORE AB,IGM Non-Reactive Normal NONREACTIVE [facility] Comment on above: Result Comment: Resu lts from patients taking biotin supplements or receiving high-dose biotin therapy should be interpreted with caution due to possible interference with this test. Providers may contact their local laboratory for further information. Performed By: #### H EPA2 #### [facility] [address] [place] [address] HEPATITIS C AB Non-Reactive Normal NONREACTIVE [facility] [place] Comment on above: Result Comment: Resu lts from patients taking biotin supplements or receiving high-dose biotin therapy should be interpreted with caution due to possible interference with this test. Providers may contact their local laboratory for further information. Performed By: #### H EPA2 #### [facility] [address] [place] [address] HEP.B SURFACE AG Non-Reactive Normal NONREACTIVE [facility] Comment on above: Result Comment: Biot in interference may cause falsely decreased results. Patients taking a Biotin dose of up to 5 mg/day should refrain from taking Biotin for 24 hours before sample collection. Providers may contact their local laboratory for further information. Performed By: #### H EPA2 #### [facility] [address] [place] [address] ALBUMIN, URINE SPOTon 2020 ALBUMIN,URINE 16.7 mg/L Normal Not Established [facility] Comment on above: Performed By: #### A LBSP #### [address] [address] ALBUMIN/CREAT RATIO 29.8 ug/mg site supervising technical operator Normal 0.0 - 30.0 [facility] Comment on above: Performed By: #### A LBSP #### [address] [address] CREATININE,URINE 56.0 mg/dL Normal 20.0 - 370.0 [facility] Comment on above: Performed By: #### A LBSP #### [address] [address] CBC AND DIFFERENTIALon 03-26 DIFFERENTIAL SEE MANUAL DIFF Normal [facility] [place] Comment on above: Performed By: #### A NA2 #### [facility] [address] [place] [address] Erythrocyte distribution width (RBC) [Ratio] 14.1 % Normal 11.5 - 14.5 [facility] Comment on above: Performed By: #### A NA2 #### [facility] [address] [place] [address] Hematocrit (Bld) [Volume fraction] 47.0 % Normal 41.0 - 52.0 [facility] Comment on above: Performed By: #### A NA2 #### [facility] [address] [place] [address] Hemoglobin (Bld) [Mass/Vol] 15.0 g/dL Normal 13.5 - 17.5 [facility] Comment on above: Performed By: #### A NA2 #### [facility] [address] [place] [address] MCHC (RBC) [Mass/Vol] 32.0 g/dL Normal 32.0 - 36.0 [facility] Comment on above: Performed By: #### A NA2 #### [facility] [address] [place] [address] MCV (RBC) [Entitic vol] 93 fL Normal 80 - 100 [facility] Comment on above: Performed By: #### A NA2 #### [facility] [address] [place] [address] Platelets (Bld) [#/Vol] 275 10*3/uL Normal 150 - 450 [facility] Comment on above: Performed By: #### A NA2 #### [facility] [address] [place] [address] RBC 5.04 x10E12/L Normal 4.50 - 5.90 [facility] Comment on above: Performed By: #### A NA2 #### [facility] [address] [place] [address] WBC (Bld) [#/Vol] 14.4 10*3/uL High 4.4 - 11.3 [facility] Comment on above: Performed By: #### A NA2 #### [facility] [address] [place] [address] COMPREHENSIVE PANELon 2020 Glucose [Mass/Vol] 472 mg/dL Critically high 74 - 99 [facility] Comment on above: Order Comment: Chin d- RB to Dr Massimo Dave, 03/26/2021 19:14 Result Comment: @rec [facility] alternate analyzer Called- RB to Dr Massimo Dave, 03/26/2021 19:14 Performed By: #### C MP #### [address] [address] Albumin [Mass/Vol] 4.3 g/dL Normal 3.4 - 5.0 [facility] Comment on above: Order Comment: Chin d- RB to Dr Massimo Dave, 03/26/2021 19:14 Performed By: #### C MP #### [address] [address] ALP [Catalytic activity/Vol] 376 U/L High 33 - 136 [facility] Comment on above: Order Comment: Chin d- RB to Dr Massimo Dave, 03/26/2021 19:14 Performed By: #### C MP #### [address] [address] ALT [Catalytic activity/Vol] 135 U/L High 10 - 52 [facility] Comment on above: Order Comment: Chin d- RB to Dr Massimo Dave, 03/26/2021 19:14 Result Comment: Shaniqua ents treated with Sulfasalazine may generate falsely decreased results for ALT. Performed By: #### C MP #### [address] [address] Anion gap [Moles/Vol] 14 mmol/L Normal 10 - 20 [facility] Comment on above: Order Comment: Chin d- RB to Dr Massimo Dave, 03/26/2021 19:14 Performed By: #### C MP #### [address] [address] AST [Catalytic activity/Vol] 41 U/L High 9 - 39 [facility] Comment on above: Order Comment: Chin d- RB to Dr Massimo Dave, 03/26/2021 19:14 Performed By: #### C MP #### [address] [address] Bilirubin [Mass/Vol] 1.2 mg/dL Normal 0.0 - 1.2 [facility] Comment on above: Order Comment: Chin d- RB to Dr Massimo Dave, 03/26/2021 19:14 Performed By: #### C MP #### [address] [address] Calcium [Mass/Vol] 10.5 mg/dL High 8.6 - 10.3 [facility] Comment on above: Order Comment: Chin d- RB to Dr Massimo Dave, 03/26/2021 19:14 Performed By: #### C MP #### [address] [address] Chloride [Moles/Vol] 99 mmol/L Normal 98 - 107 [facility] Comment on above: Order Comment: Chin d- RB to Dr Massimo Dave, 03/26/2021 19:14 Performed By: #### C MP #### [address] [address] Creatinine [Mass/Vol] 2.01 mg/dL High 0.50 - 1.30 [facility] Comment on above: Order Comment: Chin d- RB to Dr Massimo Dave, 03/26/2021 19:14 Performed By: #### C MP #### [address] [address] GFR- AM. 40 mL/min/1.73m2 Abnormal >60 [facility] Comment on above: Order Comment: Chin d- RB to Dr Massimo Dave, 03/26/2021 19:14 Result Comment: CALC ULATIONS OF ESTIMATED GFR ARE PERFORMED USING THE MDRD STUDY EQUATION FOR THE IDMS-TRACEABLE CREATININE METHODS. CLIN CHEM 2007;53:766-72 Performed By: #### C MP #### [address] [address] GFR-NON AM. 33 mL/min/1.73m2 Abnormal >60 [facility] Comment on above: Order Comment: Chin d- RB to Dr Massimo Dave, 03/26/2021 19:14 Performed By: #### C MP #### [address] [address] HCO3 (Bld) [Moles/Vol] 27 mmol/L Normal 21 - 32 [facility] Comment on above: Order Comment: Chin d- RB to Dr Massimo Dave, 03/26/2021 19:14 Performed By: #### C MP #### [address] [address] Potassium [Moles/Vol] 6.0 mmol/L High 3.5 - 5.3 [facility] Comment on above: Order Comment: Chin d- RB to Dr Massimo Dave, 03/26/2021 19:14 Performed By: #### C MP #### [address] [address] Protein [Mass/Vol] 7.8 g/dL Normal 6.4 - 8.2 [facility] Comment on above: Order Comment: Chin d- RB to Dr Massimo Dave, 03/26/2021 19:14 Performed By: #### C MP #### [place] [id number] Sodium [Moles/Vol] 134 mmol/L Low 136 - 145 [facility] Comment on above: Order Comment: Chin d- RB to Dr Massimo Dave, 03/26/2021 19:14 Performed By: #### C MP #### [place] [id number] Urea nitrogen [Mass/Vol] 50 mg/dL High 6 - 23 [facility] Comment on above: Order Comment: Chin d- RB to Dr Massimo Dave, 03/26/2021 19:14 Performed By: #### C MP #### [address] [address] Complete Blood Count + Irineo mckeon 03-26-2021 Erythrocyte distribution width (RBC) [Ratio] 14.1 % See Below [facility] Work Phone: Comment on above: Reference Range: 11. 5 - 14.5 Hematocrit (Bld) [Volume fraction] 47.0 % See Below [facility] Work Phone: Comment on above: Reference Range: 41. 0 - 52.0 Hemoglobin (Bld) [Mass/Vol] 15.0 g/dL See Below [facility] Work Phone: Comment on above: Reference Range: 13. 5 - 17.5 MCHC (RBC) [Mass/Vol] 32.0 g/dL See Below [facility] Work Phone: Comment on above: Reference Range: 32. 0 - 36.0 MCV (RBC) [Entitic vol] 93 fL 80 - 100 [facility] Work Phone: Platelets (Bld) [#/Vol] 275 10*3/uL 150 - 450 [facility] Work Phone: RBC (Bld) [#/Vol] 5.04 {x10E12/L} See Below [facility] Work Phone: Comment on above: Reference Range: 4.5 0 - 5.90 WBC (Bld) [#/Vol] 14.4 10*3/uL above high threshold 4.4 - 11.3 [facility] Work Phone: Complete Blood Count + Differential SEE MANUAL DIFF [facility] Work Phone: HEPATITIS PANEL,ACUTE (HCFA) on 03-26-2021 Lab Specimen Source Normal [facility] Comment on above: Performed By: #### H EPA2 #### [facility] [address] [place] [address] Hepatitis Panel, Acute (HCFA )on 03-26-2021 HAV IgM IA Ql Non-Reactive See Below [facility] Work Phone: Comment on above: SOURCE: Reference Ra nge: NONREACTIVE Biotin interference may cause falsely decreased results. Patients taking a Biotin dose of up to 5 mg/day should refrain from taking Biotin for 24 hours before sample collection. Providers may contact their local laboratory for further information. Hepatitis Panel, Acute (HCFA) Non-Reactive See Below [facility] Work Phone: Comment on above: Reference Range: NON REACTIVE Results from patients taking biotin supplements or receiving high-dose biotin therapy should be interpreted with caution due to possible interference with this test. Providers may contact their local laboratory for further information. Reference Range: NON REACTIVE Biotin interference may cause falsely decreased results. Patients taking a Biotin dose of up to 5 mg/day should refrain from taking Biotin for 24 hours before sample collection. Providers may contact their local laboratory for further information. Laboratory - Chemistry and C hemistry - challengeon 03-26-2021 Albumin BCP dye [Mass/Vol] 4.3 g/dL 3.4 - 5.0 [facility] Work Phone: Albumin Ql (U) 16.7 mg/L See Below [facility] Work Phone: Comment on above: Reference Range: Not Established Albumin/Creatinine DL <= 20 mg/L (U) [Mass ratio] 29.8 {ug/mg_crt} 0.0 - 30.0 [facility] Work Phone: [phone] ALP [Catalytic activity/Vol] 376 U/L above high threshold 33 - 136 [facility] Work Phone: [phone] ALT With P-5'-P [Catalytic activity/Vol] 135 U/L above high threshold 10 - 52 [facility] Work Phone: Comment on above: Patients treated wit h Sulfasalazine may generate falsely decreased results for ALT. Anion gap [Moles/Vol] 14 mmol/L 10 - 20 [facility] Work Phone: AST With P-5'-P [Catalytic activity/Vol] 41 U/L above high threshold 9 - 39 [facility] Work Phone: [phone] Bilirubin [Mass/Vol] 1.2 mg/dL 0.0 - 1.2 [facility] Work Phone: [phone] Calcium [Mass/Vol] 10.5 mg/dL above high threshold 8.6 - 10.3 [facility] Work Phone: Chloride [Moles/Vol] 99 mmol/L 98 - 107 [facility] Work Phone: [phone] CO2 [Moles/Vol] 27 mmol/L 21 - 32 [facility] Work Phone: [phone] Creatinine (U) [Mass/Vol] 56.0 mg/dL See Below [facility] Work Phone: [phone] Comment on above: Reference Range: 20. 0 - 370.0 Creatinine [Mass/Vol] 2.01 mg/dL above high threshold See Below [facility] Work Phone: Comment on above: Reference Range: 0.5 0 - 1.30 Glucose [Mass/Vol] 472 mg/dL Critically high 74 - 99 [facility] Work Phone: Comment on above: @rechecked alternate analyzer Called- RB to Dr Massimo Dave, 03/26/2021 19:14 Potassium [Moles/Vol] 6.0 mmol/L above high threshold 3.5 - 5.3 [facility] Work Phone: [phone] Protein [Mass/Vol] 7.8 g/dL 6.4 - 8.2 [facility] Work Phone: [phone] Sodium [Moles/Vol] 134 mmol/L below low threshold 136 - 145 [facility] Work Phone: [phone] TSH Qn 0.83 m[IU]/L See Below [facility] Work Phone: Comment on above: Reference Range: 0.4 4 - 3.98 TSH testing is performed using different testing methodology at [facility] than at other health system hospitals. Direct result comparisons should only be made within the same method. Urea nitrogen [Mass/Vol] 50 mg/dL above high threshold 6 - 23 [facility] Work Phone: Laboratory - Hematology and Cell countson 03-26-2021 Band form neutrophils/100 WBC (Bld) 1.0 % 0.0 - 5.0 [facility] Work Phone: Basophils/100 WBC (Bld) 0.0 % 0.0 - 2.0 [facility]: Lymphocytes/100 WBC (Bld) 4.0 % See Below [facility] Work Phone: Comment on above: Reference Range: 13. 0 - 44.0 Monocytes/100 WBC (Bld) 5.0 % 2.0 - 10.0 [facility] Work Phone: Laboratory - Serology - non- microon 03-26-2021 Nuclear Ab Hep2 substrate Ql (S) Negative NEGATIVE [facility] Work Phone: Comment on above: The Antinuclear Anti body (ARNALDO) test was performed using indirect immunofluorescence assay with HEp-2 cells slide. MANUAL DIFFERENTIALon 2020 % BAND NEUTROPHIL 1.0 % Normal 0.0 - 5.0 [facility] [place] Comment on above: Performed By: #### M DIFF #### [address] [address] % BASOPHIL 0.0 % Normal 0.0 - 2.0 [facility] Comment on above: Performed By: #### M DIFF #### [address] [address] % EOSINOPHIL 1.0 % Normal 0.0 - 6.0 [facility] Comment on above: Performed By: #### M DIFF #### [address] [address] % LYMPH-ATYPICAL 1.0 % Normal 0.0 - 2.0 [facility] Comment on above: Performed By: #### M DIFF #### [address] [address] % LYMPHOCYTE 4.0 % Normal 13.0 - 44.0 [facility] Comment on above: Performed By: #### M DIFF #### [address] [address] % MONOCYTE 5.0 % Normal 2.0 - 10.0 [facility] Comment on above: Performed By: #### M DIFF #### [address] [address] % SEG NEUTROPHIL 88.0 % Normal 40.0 - 80.0 [facility] [place] Comment on above: Result Comment: Perc ent differential counts (%) should be interpreted in the context of the absolute cell counts (cells/L). Performed By: #### M DIFF #### [address] [address] ANC 12.81 x10E9/L High 1.20 - 7.70 [facility] Comment on above: Performed By: #### M DIFF #### [address] [address] BAND NEUTROPHIL 0.14 x10E9/L Normal 0.00 - 0.70 [facility] Comment on above: Performed By: #### M DIFF #### [address] [address] BASOPHIL 0.00 x10E9/L Normal 0.00 - 0.10 [facility] Comment on above: Performed By: #### M DIFF #### [address] [address] EOSINOPHIL 0.14 x10E9/L Normal 0.00 - 0.70 [facility] Comment on above: Performed By: #### M DIFF #### [address] [address] LYMPH-ATYPICAL 0.14 x10E9/L Normal 0.00 - 0.50 [facility] [place] Comment on above: Performed By: #### M DIFF #### [address] [address] LYMPHOCYTE 0.58 x10E9/L Low 1.20 - 4.80 [facility] Comment on above: Performed By: #### M DIFF #### [address] [address] MONOCYTE 0.72 x10E9/L Normal 0.10 - 1.00 [facility] Comment on above: Performed By: #### M DIFF #### [address] [address] SEG NEUTROPHIL 12.67 x10E9/L High 1.20 - 7.00 [facility] Comment on above: Performed By: #### M DIFF #### [address] [address] No Panel Informationon 03-26 40 {mL/min/1.73m2} Abnormal >60 [facility] Work Phone: Comment on above: CALCULATIONS OF PATTI MATED GFR ARE PERFORMED USING THE MDRD STUDY EQUATION FOR THE IDMS-TRACEABLE CREATININE METHODS. CLIN CHEM 2007;53:766-72 33 {mL/min/1.73m2} Abnormal >60 [facility] Work Phone: NORMAL [facility] Work Phone: 12.81 {x10E9/L} above high threshold See Below [facility] Work Phone: Comment on above: Reference Range: 1.2 0 - 7.70 0.14 {x10E9/L} See Below [facility] Work Phone: Comment on above: Reference Range: 0.0 0 - 0.50 Reference Range: 0.0 0 - 0.70 0.00 {x10E9/L} See Below [facility] Work Phone: Comment on above: Reference Range: 0.0 0 - 0.10 0.72 {x10E9/L} See Below [facility] Work Phone: Comment on above: Reference Range: 0.1 0 - 1.00 0.58 {x10E9/L} below low threshold See Below [facility] Work Phone: Comment on above: Reference Range: 1.2 0 - 4.80 12.67 {x10E9/L} above high threshold See Below [facility] Work Phone: Comment on above: Reference Range: 1.2 0 - 7.00 1.0 % 0.0 - 6.0 [facility] Work Phone: 88.0 % See Below [facility] Work Phone: Comment on above: Reference Range: 40. 0 - 80.0 Percent differential counts (%) should be interpreted in the context of the absolute cell counts (cells/L). RED CELL MORPHOLOGYon 2020 RBC morphology finding Nom (Bld) NORMAL Normal [facility] Comment on above: Performed By: #### M ORP2 #### [address] [address] TSH WITH REFLEX TO FREE T4 I F ABNORMALon 03-26-2021 TSH Qn 0.83 m[IU]/L Normal 0.44 - 3.98 [facility] Comment on above: Result Comment: TSH testing is performed using different testing methodology at [facility] than at other [facility]. Direct result comparisons should only be made within the same method. Performed By: #### T HYDS #### [address] [address] Blood Pressure Cuff Sizeon 1 05-22-2020 Fall risk assessment a) No falls within the last year [facility] Work Phone: Tobacco use status CPHS b) No [facility] Work Phone: Blood Pressure Cuff Size Adult [facility] Work Phone: Office Visit (Internal Medic ine)on 03-22-2021 Follow-up visit Diagnoses/Problems Assessed Pruritus (698.9) (L29.9) Orders Pruritus Start: Famotidine 20 MG Oral Tablet (Pepcid); take 1 tablet by mouth at bedtime Rx By: Massimo Dave; Dispense: 0 Days ; #:30 Tablet; Refill: 0;For: Pruritus; BRENNAN = N; Sent To: [facility]; Last Updated By: Sosedi; 03/22/2021 4:03:38 PM Start: methylPREDNISolone 4 MG Oral Tablet Therapy Pack (Medrol); Please follow instructions in package Rx By: Massimo Dave; Dispense: 0 Days ; #:1 X 21 Tablet Pack; Refill: 0;For: Pruritus; BRENNAN = N; Sent To: [facility]; Last Updated By: Sosedi; 03/22/2021 4:03:39 PM Start: ZyrTEC Allergy 10 MG Oral Tablet; TAKE 1 TABLET BY MOUTH EVERY DAY Rx By: Massimo Dave; Dispense: 0 Days ; #:30 Tablet; Refill: 3;For: Pruritus; BRENNAN = N; Sent To: [facility]; Last Updated By: Estorianer; 03/22/2021 4:03:39 PM Provider Impressions 1. Diffuse pruritis - possible is allergy to component ingredient of cortisone injection that he had no other rashes or obvious hives or cause of rash, no new soaps, lotions detergents or products that he can thinks of, he just had blood work on 03/15/2021 and Cr was at baseline and LFts were normal, no change in medication otherwise. Will have him stop Vistaril and try zyrtec 10mg po daily and pepcid 20mg po daily, can take visatril or Benadryl as needed, apply moisturizer liberally, if not improving in a day o so can do medrol dose pack (don?t want to do higher due to his DMII), no other abd pain, flushing, diarrhea, vomiting, fevers, unintended weight loss, no jaundice, no recent travel, no noted scabies or bites either, if not improving towards the end of the week, will repeat cmp, cbc, tsh, arnaldo, sjogrens antibodies, hepatitis, could consider us of liver, gallbladder, pancreas if bloodwork ok Chief Complaint 70 y/o male presents for all over itchiness and rawness Pt reports his entire body is itching Started the Monday before Thanksgiving The only thing he changed was getting a Cortisone injection in his foot but that was in the beginning of the month Pt states he did go to Urgent care but it was useless(hydroxyzine) Pt states he has not slept since Monday night Pt states the night the itching started his BS was a 395 He remembers this happening 15-20 years ago when he was seeing Dr. Garcia Adult Risk Screening Initial Fall Risk Screening: ALEJANDRO has not fallen in the last 6 months. Tobacco Screening: ALEJANDRO does not use tobacco. History of Present Illness Patient is here today for cc of diffuse itching. He had injection in the top of his foot for bone spur by [facility] at the beginning of the month, he is not sure if it was Kenalog, or what it was. Pt reports it started mon evening, just diffuse itching, no obvious hives. no nw soaps lotions or detergent.s Mon night his blood sugar was 395. Has been lower in 160s since. Went to urgent care and was given Vistaril which did not help. He states something similar happened about 20 years ago, he remembers going to see Dr Mojica. Review of Systems Constitutional: no fever, not feeling poorly, not feeling tired and no recent weight loss. Gastrointestinal: no abdominal pain, no nausea, no diarrhea and no vomiting. Musculoskeletal: no arthralgias and no joint swelling. Integumentary: itching, but no rashes and no skin lesions. 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, bilateral (250.50,362.05,362.07) (E11.3313) Type 2 diabetes mellitus with moderate nonproliferative diabetic retinopathy with macular edema, bilateral Surgical History Problems History of Colonoscopy 05/[address] Farfan Family History Mother Family history of hypertension (V17.49) (Z82.49) Family history of macular degeneration (V19.19) (Z83.518) Family history of Type 2 diabetes mellitus with other circulatory complication Father Family history of hypertension (V17.49) (Z82.49) Family history of Type 2 diabetes mellitus with other circulatory complication Social History Problems Never smoker No alcohol use Allergies NoKnown No Known Allergies Recorded By: Be Degroot; 11/16/2017 11:34:28 AM Current Meds Medication NameInstruction Carvedilol 25 MG Oral TabletTAKE 1 TABLET TWICE DAILY. Crestor 10 MG Oral Tablet Janumet 50-1000 MG Oral TabletTAKE 1 TABLET TWICE DAILY WITH MEALS. Losartan Potassium-HCTZ 100-25 MG Oral TabletTake 1 tablet daily NovoLOG FlexPen 100 UNIT/ML Subcutaneous Solution Pen-injector Pioglitazone HCl - 15 MG Oral TabletTAKE 1 (more content not included)... Normal [facility] 03-20-2021 [facility] Office Visit (UCWSTR ) ALEJANDRO SMITH ([id number]) 1950 M Date Time Provider Department 03/20/21 8:30 AM JACK LOPEZ [facility] During your visit today, we recorded the following information about you: Temperature Pulse Respiration Blood pressure 97.6 degrees 74/minute 16/minute 128/84 Weight 95.3 kg Jack Lopez APRN.CNP 03/20/2021 9:20 AM Signed ASSESSMENT/PLAN: 1. Pruritus - ICD9: 698.9, ICD10: L29.9 -use medication as prescribed -follow up if symptoms persist, worsen, change - HYDROXYZINE HCL 25 MG TABLET - TRIAMCINOLONE ACETONIDE 0.1 % TOPICAL CREAM Jack Lopez APRN.CNP 03/20/2021 9:41 AM Signed Subjective HPI HPI Alejandro Smith is a 70 year old male who presents today for CC of itching all over. This started 3 days ago. Has tried otc medication without relief. Symptoms are worsened by nothing known. Risk factors diabetic, sugars have been elevated, had recent steroid injection, sugar today 180. Denies uri symptoms, cp/sob, diarrhea, abd pain. .Patient presents with: Acute Visit: pruritis x 3 days- No past medical history on file. No past surgical history on file. ALLERGIES Patient has no known allergies. MEDICATIONS carvedilol (COREG) 25 mg tablet Take 1 tablet by mouth once daily. TRESIBA FLEXTOUCH U-200 200 unit/mL (3 mL) injection Inject 88 Units subcutaneously once daily. losartan-hydroCHLOROth iazide (HYZAAR) 100-25 mg per tablet Take 1 tablet by mouth once daily. pioglitazone (ACTOS) 15 mg tablet Take 1 tablet by mouth once daily. JANUMET 50-1,000 mg per tablet Take 2 tablets by mouth once daily. insulin aspart (NOVOLOG FLEXPEN U-100 INSULIN SUBCUTANEOUS) Inject subcutaneously. Use when BS is over 200 on a sliding scale hydrOXYzine HCl (ATARAX) 25 mg tablet Take 1 tablet by mouth three times daily as needed for itching/rash. triamcinolone acetonide (KENALOG) 0.1 % cream Apply 1 application to affected area three times daily for 10 days. Apply sparingly to area for rash/itching. No family history on file. Social History Tobacco Use - Smoking status: Never Smoker - Smokeless tobacco: Never Used Substance Use Topics - Alcohol use: Not on file - Drug use: Not on file ROS Objective Blood pressure 128/84, pulse 74, temperature 36.4 ?C (97.6 ?F), temperature source Left Tympanic, resp. rate 16, weight 95.3 kg (210 lb), SpO2 95 %. Physical Exam Constitutional: General: He is not in acute distress. Appearance: He is not toxic-appearing or diaphoretic. HENT: Head: Normocephalic and atraumatic. Cardiovascular: Rate and Rhythm: Normal rate and regular rhythm. Heart sounds: Normal heart sounds, S1 normal and S2 normal. Pulmonary: Effort: Pulmonary effort is normal. Breath sounds: Normal breath sounds. Skin: Comments: No rash present Neurological: Mental Status: He is alert and oriented to person, place, and time. Gait: Gait is intact. ASSESSMENT/PLAN: 1. Pruritus - ICD9: 698.9, ICD10: L29.9 -use medication as prescribed -follow up if symptoms persist, worsen, change - HYDROXYZINE HCL 25 MG TABLET - TRIAMCINOLONE ACETONIDE 0.1 % TOPICAL CREAM Jack Lopez APRN.HOSPITAL CLINIC ASSISTANT Referring Provider: SELF [200] Allergies As of Date: 03/20/2021 (No Known Allergies) Date Reviewed: 03/20/2021 Reviewed by: Liliane Thapa Ma - Fully Assessed Reason for Visit: Acute Visit [896] Cmt: pruritis x 3 days- Primary Visit Diagnosis:Pruritus [L29.9] Order(s):hydrOXYzine HCl (ATARAX) 25 mg tabletTake 1 tablet by mouth three times daily as needed for itching/rash.Disp: 20 tabletRfl: 0 triamcinolone acetonide (KENALOG) 0.1 % creamApply 1 application to affected area three times daily for 10 days. Apply sparingly to area for rash/itching.Disp: 80 gRfl: 0 Prescriptions as of 03/20/2021 - carvedilol (COREG) 25 mg tablet Take 1 tablet by mouth once daily. - TRESIBA FLEXTOUCH U-200 200 unit/mL (3 mL) injection Inject 88 Units subcutaneously once daily. - losartan-hydroCHLOROth iazide (HYZAAR) 100-25 mg per tablet Take 1 tablet by mouth once daily. - pioglitazone (ACTOS) 15 mg tablet Take 1 tablet by mouth once daily. - JANUMET 50-1,000 mg per tablet Take 2 tablets by mouth once daily. - insulin aspart (NOVOLOG FLEXPEN U-100 INSULIN SUBCUTANEOUS) Inject subcutaneously. Use when BS is over 200 on a sliding scale - hydrOXYzine HCl (ATARAX) 25 mg tablet Take 1 tablet by mouth three times daily as needed for itching/rash. - triamcinolone acetonide (KENALOG) 0.1 % cream Apply 1 application to affected area three times daily for 10 days. Apply sparingly to area for rash/itching. Problem List As Of Date: 03/20/2021 (None) Other instructions from your clinician: ASSESSMENT/PLAN: 1. Pruritus - ICD9: 698.9, ICD10: L29.9 -use medication as prescribed -follow up if symptoms persist, worsen, change - HYDROXYZINE HCL 25 MG TABLET - TR (more content not included)... Normal [facility] PANEL 2020 Albumin [Mass/Vol] 4.3 g/dL Normal 3.4 - 5.0 [facility] Comment on above: Performed By: #### A NA2 #### [facility] [address] [place] [address] ALP [Catalytic activity/Vol] 134 U/L Normal 33 - 136 [facility] Work Phone: Comment on above: Performed By: #### A NA2 #### [facility] [address] [place] [address] ALT [Catalytic activity/Vol] 35 U/L Normal 10 - 52 [facility] Comment on above: Result Comment: Shaniqua ents treated with Sulfasalazine may generate falsely decreased results for ALT. Performed By: #### A NA2 #### [facility] [address] [place] [address] Anion gap [Moles/Vol] 12 mmol/L Normal 10 - 20 [facility] Work Phone: Comment on above: Performed By: #### A NA2 #### [facility] [address] [place] [address] AST [Catalytic activity/Vol] 19 U/L Normal 9 - 39 [facility] Comment on above: Performed By: #### A NA2 #### [facility] [address] [place] [address] Bilirubin [Mass/Vol] 0.7 mg/dL Normal 0.0 - 1.2 [facility] Work Phone: Comment on above: Performed By: #### A NA2 #### [facility] [address] [place] [address] Calcium [Mass/Vol] 10.0 mg/dL Normal 8.6 - 10.3 [facility] Work Phone: Comment on above: Performed By: #### A NA2 #### [facility] [address] [place] [address] Chloride [Moles/Vol] 104 mmol/L Normal 98 - 107 [facility] Work Phone: Comment on above: Performed By: #### A NA2 #### [facility] [address] [place] [address] Creatinine [Mass/Vol] 1.98 mg/dL High 0.50 - 1.30 [facility] Work Phone: Comment on above: Reference Range: 0.5 0 - 1.30 Performed By: #### A NA2 #### [facility] [address] [place] [address] GFR- AM. 41 mL/min/1.73m2 Abnormal >60 [facility] Comment on above: Result Comment: CALC ULATIONS OF ESTIMATED GFR ARE PERFORMED USING THE MDRD STUDY EQUATION FOR THE IDMS-TRACEABLE CREATININE METHODS. CLIN CHEM 2007;53:766-72 Performed By: #### A NA2 #### [facility] [address] [place] [address] GFR-NON AM. 34 mL/min/1.73m2 Abnormal >60 [facility] Comment on above: Performed By: #### A NA2 #### [facility] [address] [place] [address] Glucose [Mass/Vol] 123 mg/dL High 74 - 99 [facility] Work Phone: Comment on above: Performed By: #### A NA2 #### [facility] [address] [place] [address] HCO3 (Bld) [Moles/Vol] 25 mmol/L Normal 21 - 32 [facility] Comment on above: Performed By: #### A NA2 #### [facility] [address] [place] [address] Potassium [Moles/Vol] 4.9 mmol/L Normal 3.5 - 5.3 [facility] Work Phone: Comment on above: Performed By: #### A NA2 #### [facility] [address] [place] [address] Protein [Mass/Vol] 7.2 g/dL Normal 6.4 - 8.2 [facility] Work Phone: Comment on above: Performed By: #### A NA2 #### [facility] [address] [place] [address] Sodium [Moles/Vol] 136 mmol/L Normal 136 - 145 [facility] Work Phone: Comment on above: Performed By: #### A NA2 #### [facility] [address] [place] [address] Urea nitrogen [Mass/Vol] 35 mg/dL High 6 - 23 [facility] Work Phone: Comment on above: Performed By: #### A NA2 #### [facility] [address] [place] [address] Hemoglobin A1Con 03-15-2021 Glucose [Mass/Vol] 203 mg/dL Normal [facility] Work Phone: Comment on above: Performed By: #### H BA1E #### [facility] [address] [place] [address] HbA1c (Bld) [Mass fraction] 8.7 % Abnormal [facility] Work Phone: Comment on above: Diagnosis of Diabete s-Adults Non-Diabetic: < or = 5.6% Increased risk for developing diabetes: 5.7-6.4% Diagnostic of diabetes: > or = 6.5%. Monitoring of Diabetes Age (y) Therapeutic Goal (%) Adults: >18 <7.0 Pediatrics: 13-18 <7.5 7-12 <8.0 0- 6 7.5-8.5 [place] [employer]. Diabetes Care 33(S1), Apr 2009. Result Comment: Diag nosis of Diabetes-Adults Non-Diabetic: < or = 5.6% Increased risk for developing diabetes: 5.7-6.4% Diagnostic of diabetes: > or = 6.5% . Monitoring of Diabetes Age (y) Therapeutic Goal (%) Adults: >18 <7.0 Pediatrics: 13-18 <7.5 7-12 <8.0 0- 6 7.5-8.5 [place] [employer]. Diabetes Care 33(S1), Apr 2009. Performed By: #### H BA1E #### [place] [address] Laboratory - Chemistry and C hemistry - challengeon 03-15-2021 Albumin BCP dye [Mass/Vol] 4.3 g/dL 3.4 - 5.0 [facility] Work Phone: ALT With P-5'-P [Catalytic activity/Vol] 35 U/L 10 - 52 [facility] Work Phone: Comment on above: Patients treated wit h Sulfasalazine may generate falsely decreased results for ALT. AST With P-5'-P [Catalytic activity/Vol] 19 U/L 9 - 39 [facility] Work Phone: CO2 [Moles/Vol] 25 mmol/L 21 - 32 [facility] Work Phone: No Panel Informationon 03-15 41 {mL/min/1.73m2} Abnormal >60 [facility] Work Phone: Comment on above: CALCULATIONS OF PATTI MATED GFR ARE PERFORMED USING THE MDRD STUDY EQUATION FOR THE IDMS-TRACEABLE CREATININE METHODS. 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, bilateral (250.50,362.05,362.07) (E11.3313) Type 2 diabetes mellitus with moderate nonproliferative diabetic retinopathy with macular edema, bilateral HTN (hypertension) (401.9) (I10) Chronic kidney disease, stage 3a (585.3) (N18.31) Orders Renal tubular acidosis, type IV Comprehensive Metabolic Panel; Status:Active; Requested for:05Mar2021; Perform:Lab Services - Lab To Draw (Blood Test); Due:[id number];Ordered; For:Renal tubular acidosis, type IV; Ordered By:Massimo Dave; Type 2 diabetes mellitus with moderate nonproliferative diabetic retinopathy with macular edema, bilateral Hemoglobin A1C; Status:Active; Requested for:[id number]; Perform:Lab Services - Lab To Draw (Blood Test); Due:03Mar2021;Ordered; For:Type 2 diabetes mellitus with moderate nonproliferative diabetic retinopathy with macular edema, bilateral; Ordered By:Massimo Dave; Provider Impressions 1. DMII, controlled - a1c was 6.8% now 8.8% - has lost 10 lbs - continue Tresiba 200 units daily, Novolog per sliding scale - continue Janument 50-1000mg po bid - continue pioglitazone 15mg po daily - encouraged him to be more active or reduce caloric and calorie carb intake likely high with not adjusting eating habits but less active with plantar fascitis 2. RTA Type IV with hyperkalemia, htn - Cr down to 1.7, K 4.7 now up to 2 and 5.5 which is generally his baseline - continue current bp meds 3. HLD, controlled - continue crestor 10mg po daily 4. F/u in 3 mo with bloodwork before next appt Chief Complaint 70 y/o male presents for follow lab results Denies new complaints, Pt states he has been doing well Adult Risk Screening Initial Fall Risk Screening: ALEJANDRO has not fallen in the last 6 months. Tobacco Screening: ALEJANDRO does not use tobacco. History of Present Illness Patient is here today for follow up on DMII DMII - his a1c went 8.8%. he is not working out due to the plantar fascitis, he is down about 10 lbs from when I last saw him. Patient reports blood sugars have been erratic at times, 110, the next day it was 200. Review of Systems Constitutional: no fever, no chills and not feeling poorly. ENT: no nosebleeds and no nasal discharge. Cardiovascular: no chest pain, no palpitations and no intermittent leg claudication. Respiratory: no cough and not coughing up sputum. 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, bilateral (250.50,362.05,362.07) (E11.3313) Type 2 diabetes mellitus with moderate nonproliferative diabetic retinopathy with macular edema, bilateral Surgical History Problems History of Colonoscopy 05/[address] Farfan Family History Mother Family history of hypertension (V17.49) (Z82.49) Family history of macular degeneration (V19.19) (Z83.518) Family history of Type 2 diabetes mellitus with other circulatory complication Father Family history of hypertension (V17.49) (Z82.49) Family history of Type 2 diabetes mellitus with other circulatory complication Social History Problems Never smoker No alcohol use Allergies NoKnown No Known Allergies Recorded By: Be Degroot; 11/16/2017 11:34:28 AM Current Meds Medication NameInstruction Carvedilol 25 MG Oral TabletTAKE 1 TABLET TWICE DAILY. Crestor 10 MG Oral Tablet Janumet 50-1000 MG Oral TabletTAKE 1 TABLET TWICE DAILY WITH MEALS. Losartan Potassium-HCTZ 100-25 MG Oral TabletTake 1 tablet daily NovoLOG FlexPen 100 UNIT/ML Subcutaneous Solution Pen-injector Pioglitazone HCl - 15 MG Oral TabletTAKE 1 TABLET ONCE DAILY. Tresiba FlexTouch 200 UNIT/ML Subcutaneous Solution Pen-injectorINJECT 200 UNITS DAILY Vitals Vital Signs Recorded: 03Dec2020 02:13PM Ybdqsufvcai62.8 F, Temporal Heart Rate74 Nsmmfxzx156 Kmcotwayj62 Blood Pressure Cuff SizeAdult Height5 ft 8 in Kusmkk416 lb BMI Cihgbuhpab06.99 kg/m2 BSA Calculated2.12 Tobacco Useb) No Fall Screeninga) No falls within the last year Physical Exam Constitutional General appearance: Alert and in no acute distress. Eyes Inspection of eyes: Sclera and conjunctiva were normal. Pupil exam: Pupils were equal in size. Extraocular movements were intact. Pulmonary Respiratory assessment: No respiratory distress, normal respiratory rhythm and effort. Auscultation of Lungs: Clear bilateral breath sounds. Cardiovascular Auscultation of heart: Apical pulse normal, heart rate and rhythm normal, normal S1 and S2, no murmurs and (more content not included)... Normal [facility] ALBUMIN, URINE SPOTon 2020 ALBUMIN,URINE 37.6 mg/L Normal Not Established [facility] Comment on above: Performed By: #### A LBSP #### [address] [address] ALBUMIN/CREAT RATIO 26.3 ug/mg site supervising technical operator Normal 0.0 - 30.0 [facility] Comment on above: Performed By: #### A LBSP #### [address] [address] CREATININE,URINE 143.0 mg/dL Normal 20.0 - 370.0 [facility] Comment on above: Performed By: #### A LBSP #### [address] [address] COMPREHENSIVE PANELon 2020 Albumin [Mass/Vol] 4.7 g/dL Normal 3.4 - 5.0 [facility] Comment on above: Performed By: #### C MP #### [address] [address] ALP [Catalytic activity/Vol] 136 U/L Normal 33 - 136 [facility] Comment on above: Performed By: #### C MP #### [address] [address] ALT [Catalytic activity/Vol] 48 U/L Normal 10 - 52 [facility] Comment on above: Result Comment: Shaniqua ents treated with Sulfasalazine may generate falsely decreased results for ALT. Performed By: #### C MP #### [address] [address] Anion gap [Moles/Vol] 12 mmol/L Normal 10 - 20 [facility] Comment on above: Performed By: #### C MP #### [address] [address] AST [Catalytic activity/Vol] 21 U/L Normal 9 - 39 [facility] Comment on above: Performed By: #### C MP #### [address] [address] Bilirubin [Mass/Vol] 0.5 mg/dL Normal 0.0 - 1.2 [facility] Comment on above: Performed By: #### C MP #### [address] [address] Calcium [Mass/Vol] 10.3 mg/dL Normal 8.6 - 10.3 [facility] Comment on above: Performed By: #### C MP #### [address] [address] Chloride [Moles/Vol] 105 mmol/L Normal 98 - 107 [facility] Comment on above: Performed By: #### C MP #### [address] [address] Creatinine [Mass/Vol] 2.11 mg/dL High 0.50 - 1.30 [facility] Comment on above: Performed By: #### C MP #### [address] [address] GFR- AM. 38 mL/min/1.73m2 Abnormal >60 [facility] Comment on above: Result Comment: CALC ULATIONS OF ESTIMATED GFR ARE PERFORMED USING THE MDRD STUDY EQUATION FOR THE IDMS-TRACEABLE CREATININE METHODS. CLIN CHEM 2007;53:766-72 Performed By: #### C MP #### [address] [address] GFR-NON AM. 31 mL/min/1.73m2 Abnormal >60 [facility] Comment on above: Performed By: #### C MP #### [address] [address] Glucose [Mass/Vol] 107 mg/dL High 74 - 99 [facility] Comment on above: Performed By: #### C MP #### [address] [address] HCO3 (Bld) [Moles/Vol] 26 mmol/L Normal 21 - 32 [facility] Comment on above: Performed By: #### C MP #### [address] [address] Potassium [Moles/Vol] 5.5 mmol/L High 3.5 - 5.3 [facility] Comment on above: Performed By: #### C MP #### [address] [address] Protein [Mass/Vol] 7.5 g/dL Normal 6.4 - 8.2 [facility] Comment on above: Performed By: #### C MP #### [address] [address] Sodium [Moles/Vol] 137 mmol/L Normal 136 - 145 [facility] Comment on above: Performed By: #### C MP #### [address] [address] Urea nitrogen [Mass/Vol] 42 mg/dL High 6 - 23 [facility] Comment on above: Performed By: #### C MP #### [facility] [address] [place] [address] HEMOGLOBIN A1Con 11-24-2020 Glucose [Mass/Vol] 206 mg/dL Normal [facility] Comment on above: Performed By: #### H BA1E ####[address] [place] [address] HbA1c (Bld) [Mass fraction] 8.8 % Normal [facility] Comment on above: Result Comment: Diag nosis of Diabetes-Adults Non-Diabetic: < or = 5.6% Increased risk for developing diabetes: 5.7-6.4% Diagnostic of diabetes: > or = 6.5% . Monitoring of Diabetes Age (y) Therapeutic Goal (%) Adults: >18 <7.0 Pediatrics: 13-18 <7.5 7-12 <8.0 0- 6 7.5-8.5 [place] [employer]. Diabetes Care 33(S1), Apr 2009. Performed By: #### H BA1E ####[address] [address] Hemoglobin A1Con 11-24-2020 Glucose [Mass/Vol] 206 mg/dL [facility] Work Phone: HbA1c (Bld) [Mass fraction] 8.8 % [facility] Work Phone: Comment on above: Diagnosis of Diabete s-Adults Non-Diabetic: < or = 5.6% Increased risk for developing diabetes: 5.7-6.4% Diagnostic of diabetes: > or = 6.5%. Monitoring of Diabetes Age (y) Therapeutic Goal (%) Adults: >18 <7.0 Pediatrics: 13-18 <7.5 7-12 <8.0 0- 6 7.5-8.5 [place] [employer]. Diabetes Care 33(S1), Apr 2009. LIPID PANEL (CORONARY RISK 2 )on 11-24-2020 Cholesterol [Mass/Vol] 226 mg/dL High 0 - 199 [facility] Comment on above: Result Comment: . AGE DESIRABLE BORDERLINE HIGH HIGH 0-19 Y 0 - 169 170 - 199 >/= 200 20-24 Y 0 - 189 190 - 224 >/= 225 >24 Y 0 - 199 200 - 239 >/= 240 All ranges are based on fasting samples. Specific therapeutic targets will vary based on patient-specific cardiac risk. . Pediatric guidelines reference:Pediatrics 2011, 128(S5). Adult guidelines reference: NCEP ATPIII Guidelines, GIRISH 2001, 258:2486-97 . Venipuncture immediately after or during the administration of Metamizole may lead to falsely low results. Testing should be performed immediately prior to Metamizole dosing. Performed By: #### L IPID #### [address] [address] Cholesterol in HDL [Mass/Vol] 38.0 mg/dL Abnormal [facility] Comment on above: Result Comment: . AGE VERY LOW LOW NORMAL HIGH 0-19 Y < 35 < 40 40-45 ---- 20-24 Y ---- < 40 >45 ---- >24 Y ---- < 40 40-60 >60 . Performed By: #### L IPID #### [address] [address] Cholesterol in LDL [Mass/Vol] 129 mg/dL High 0 - 99 [facility] Comment on above: Result Comment: . NEAR BORD AGE DESIRABLE OPTIMAL HIGH HIGH VERY HIGH 0-19 Y 0 - 109 --- 110-129 >/= 130 ---- 20-24 Y 0 - 119 --- 120-159 >/= 160 ---- >24 Y 0 - 99 100-129 130-159 160-189 >/=190 . Performed By: #### L IPID #### [address] [address] Cholesterol in VLDL [Mass/Vol] 59 mg/dL High 0 - 40 [facility] Comment on above: Performed By: #### L IPID #### [address] [address] Cholesterol.total/ Cholesterol in HDL [Mass ratio] 5.9 {ratio} Abnormal [facility] Comment on above: Result Comment: REF VALUES DESIRABLE < 3.4 HIGH RISK > 5.0 Performed By: #### L IPID #### [address] [address] NON-HDL CHOLESTEROL 188 mg/dL Normal [facility] Comment on above: Result Comment: AGE DESIRABLE BORDERLINE HIGH HIGH VERY HIGH 0-19 Y 0 - 119 120 - 144 >/= 145 >/= 160 20-24 Y 0 - 149 150 - 189 >/= 190 ---- >24 Y 30 MG/DL ABOVE LDL CHOLESTEROL GOAL . Performed By: #### L IPID #### [address] [address] Triglyceride [Mass/Vol] 294 mg/dL High 0 - 149 [facility] Comment on above: Result Comment: . AGE DESIRABLE BORDERLINE HIGH HIGH VERY HIGH 0 D-90 D 19 - 174 ---- ---- ---- 91 D- 9 Y 0 - 74 75 - 99 >/= 100 ---- 10-19 Y 0 - 89 90 - 129 >/= 130 ---- 20-24 Y 0 - 114 115 - 149 >/= 150 ---- >24 Y 0 - 149 150 - 199 200- 499 >/= 500 . Venipuncture immediately after or during the administration of Metamizole may lead to falsely low results. Testing should be performed immediately prior to Metamizole dosing. Performed By: #### L IPID #### [address] [address] Laboratory - Chemistry and C hemistry - challengeon 11-24-2020 Albumin BCP dye [Mass/Vol] 4.7 g/dL 3.4 - 5.0 [facility] Work Phone: Albumin Ql (U) 37.6 mg/L See Below [facility] Work Phone: Comment on above: Reference Range: Not Established Albumin/Creatinine DL <= 20 mg/L (U) [Mass ratio] 26.3 {ug/mg_crt} 0.0 - 30.0 [facility] Work Phone: ALP [Catalytic activity/Vol] 136 U/L 33 - 136 [facility] Work Phone: [phone] ALT With P-5'-P [Catalytic activity/Vol] 48 U/L 10 - 52 [facility] Work Phone: [phone] Comment on above: Patients treated wit h Sulfasalazine may generate falsely decreased results for ALT. Anion gap [Moles/Vol] 12 mmol/L 10 - 20 [facility] Work Phone: [phone] AST With P-5'-P [Catalytic activity/Vol] 21 U/L 9 - 39 [facility] Work Phone: [phone] Bilirubin [Mass/Vol] 0.5 mg/dL 0.0 - 1.2 [facility] Work Phone: [phone] Calcium [Mass/Vol] 10.3 mg/dL 8.6 - 10.3 [facility] Work Phone: [phone] Chloride [Moles/Vol] 105 mmol/L 98 - 107 [facility] Work Phone: [phone] CO2 [Moles/Vol] 26 mmol/L 21 - 32 [facility] Work Phone: [phone] Creatinine (U) [Mass/Vol] 143.0 mg/dL See Below [facility] Work Phone: [phone] Comment on above: Reference Range: 20. 0 - 370.0 Creatinine [Mass/Vol] 2.11 mg/dL above high threshold See Below [facility] Work Phone: [phone] Comment on above: Reference Range: 0.5 0 - 1.30 Glucose [Mass/Vol] 107 mg/dL above high threshold 74 - 99 [facility] Work Phone: [phone] Potassium [Moles/Vol] 5.5 mmol/L above high threshold 3.5 - 5.3 [facility] Work Phone: [phone] Protein [Mass/Vol] 7.5 g/dL 6.4 - 8.2 [facility] Work Phone: [phone] Sodium [Moles/Vol] 137 mmol/L 136 - 145 [facility] Work Phone: Urea nitrogen [Mass/Vol] 42 mg/dL above high threshold 6 - 23 [facility] Work Phone: Lipid Panelon 11-24-2020 Cholesterol [Mass/Vol] 226 mg/dL above high threshold 0 - 199 [facility] Work Phone: Comment on above: . AGE DESIRABLE BORD MAURA HIGH HIGH 0-19 Y 0 - 169 170 - 199 >/= 200 20-24 Y 0 - 189 190 - 224 >/= 225 >24 Y 0 - 199 200 - 239 >/= 240 All ranges are based on fasting samples. Specific therapeutic targets will vary based on patient-specific cardiac risk.. Pediatric guidelines reference:Pediatrics 2011, 128(S5). Adult guidelines reference: NCEP ATPIII Guidelines, GIRISH 2001, 258:6486-97. Venipuncture immediately after or during the administration of Metamizole may lead to falsely low results. Testing should be performed immediately prior to Metamizole dosing. Cholesterol in HDL [Mass/Vol] 38.0 mg/dL Abnormal [facility] Work Phone: Comment on above: . AGE VERY LOW LOW N ORMAL HIGH 0-19 Y < 35 < 40 40-45 ---- 20- 24 Y ---- < 40 >45 ---- >24 Y ---- < 40 40-60 >60. Cholesterol in LDL [Mass/Vol] 129 mg/dL above high threshold 0 - 99 [facility] Work Phone: Comment on above: . NEAR BORD AGE DIA RABLE OPTIMAL HIGH HIGH VERY HIGH 0-19 Y 0 - 109 --- 110-129 >/= 130 ---- 20-24 Y 0 - 119 --- 120-159 >/= 160 ---- >24 Y 0 - 99 100-129 130-159 160-189 >/=190. Cholesterol non HDL [Mass/Vol] 188 mg/dL [facility] Work Phone: Comment on above: AGE DESIRABLE BORDER LINE HIGH HIGH VERY HIGH 0-19 Y 0 - 119 120 - 144 >/= 145 >/= 160 20-24 Y 0 - 149 150 - 189 >/= 190 ---- >24 Y 30 MG/DL ABOVE LDL CHOLESTEROL GOAL. Cholesterol.total/ Cholesterol in HDL [Mass ratio] 5.9 {ratio} Abnormal [facility] Work Phone: Comment on above: REF VALUESDESIRABLE < 3.4HIGH RISK > 5.0 Triglyceride [Mass/Vol] 294 mg/dL above high threshold 0 - 149 [facility] Work Phone: Comment on above: . AGE DESIRABLE BORD MAURA HIGH HIGH VERY HIGH 0 D-90 D 19 - 174 ---- ---- ----91 D- 9 Y 0 - 74 75 - 99 >/= 100 ---- 10-19 Y 0 - 89 90 - 129 >/= 130 ---- 20-24 Y 0 - 114 115 - 149 >/= 150 ---- >24 Y 0 - 149 150 - 199 200- 499 >/= 500. Venipuncture immediately after or during the administration of Metamizole may lead to falsely low results. Testing should be performed immediately prior to Metamizole dosing. Lipid Panel 59 mg/dL above high threshold 0 - 40 [facility] Work Phone: MAGNESIUMon 11-24-2020 Magnesium [Mass/Vol] 2.01 mg/dL Normal 1.60 - 2.40 [facility] Comment on above: Performed By: #### M G #### [place] [address] Magnesium, Serumon Magnesium [Mass/Vol] 2.01 mg/dL See Below [facility] Work Phone: Comment on above: Reference Range: 1.6 0 - 2.40 No Panel Informationon 11-24 38 {mL/min/1.73m2} Abnormal >60 [facility] Work Phone: Comment on above: CALCULATIONS OF PATTI MATED GFR ARE PERFORMED USING THE MDRD STUDY EQUATION FOR THE IDMS-TRACEABLE CREATININE METHODS. CLIN CHEM 2007;53:766-72 31 {mL/min/1.73m2} Abnormal >60 [facility] Work Phone: PHOSPHORUSon 11-24-2020 Phosphate [Mass/Vol] 2.9 mg/dL Normal 2.5 - 4.9 [facility] Comment on above: Result Comment: The performance characteristics of phosphorus testing in heparinized plasma have been validated by the individual laboratory site where testing is performed. Testing on heparinized plasma is not approved by the FDA; however, such approval is not necessary. Performed By: #### P HOS #### [address] [place] [address] Phosphorus, Serumon 11-25-19 Phosphate [Mass/Vol] 2.9 mg/dL 2.5 - 4.9 [facility] Work Phone: Comment on above: The performance cam acteristics of phosphorus testing in heparinized plasma have been validated by the individual laboratory site where testing is performed. Testing on heparinized plasma is not approved by the FDA; however, such approval is not necessary. 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, bilateral (250.50,362.05,362.07) (E11.3313) Orders Chronic kidney disease, stage 3a, Renal tubular acidosis, type IV, Type 2 diabetes mellitus with moderate nonproliferative diabetic retinopathy with macular edema, bilateral Comprehensive Metabolic Panel; Status:Active; Requested for:[id number]; Perform:Lab Services - Lab To Draw (Blood Test); Due:06Mar2021;Ordered; For:Chronic kidney disease, stage 3a, Renal tubular acidosis, type IV, Type 2 diabetes mellitus with moderate nonproliferative diabetic retinopathy with macular edema, bilateral; Ordered By:Massimo Dave; Chronic kidney disease, stage 3a, Type 2 diabetes mellitus with moderate nonproliferative diabetic retinopathy with macular edema, bilateral Albumin, Urine Spot; Status:Active; Requested for:[id number]; Perform:Lab Services - Lab To Draw (Non-Blood Test); Due:06Mar2021;Ordered; For:Chronic kidney disease, stage 3a, Type 2 diabetes mellitus with moderate nonproliferative diabetic retinopathy with macular edema, bilateral; Ordered By:Massimo Dave; Renal tubular acidosis, type IV Magnesium, Serum; Status:Active; Requested for:06Dec2020; Perform:Lab Services - Lab To Draw (Blood Test); Due:06Mar2021;Ordered; For:Renal tubular acidosis, type IV; Ordered By:Massimo Dave; Phosphorus, Serum; Status:Active; Requested for:[id number]; Perform:Lab Services - Lab To Draw (Blood Test); Due:06Mar2021;Ordered; For:Renal tubular acidosis, type IV; Ordered By:Massimo Dave; Type 2 diabetes mellitus with moderate nonproliferative diabetic retinopathy with macular edema, bilateral Hemoglobin A1C; Status:Active; Requested for:06Dec2020; Perform:Lab Services - Lab To Draw (Blood Test); Due:06Mar2021;Ordered; For:Type 2 diabetes mellitus with moderate nonproliferative diabetic retinopathy with macular edema, bilateral; Ordered By:Massimo Dave; Lipid Panel; Status:Active; Requested for:06Dec2020; Perform:Lab Services - Lab To Draw (Blood Test); Due:06Mar2021;Ordered; For:Type 2 diabetes mellitus with moderate nonproliferative diabetic retinopathy with macular edema, bilateral; Ordered By:Massimo Dave; Provider Impressions 1. DMII, controlled - a1c was 6.8% - has gained about 10 lbs - continue Tresiba 200 units daily, Novolog per sliding scale - continue Janument 50-1000mg po bid - continue pioglitazone 15mg po daily 2. RTA Type IV with hyperkalemia, htn - Cr down to 1.7, K 4.7 - manual recheck ok - continue current bp meds 3. HLD, controlled - continue crestor 10mg po daily 4. F/u in 6 mo with bloodwork before next appt Chief Complaint 69 y/o male presents for 6 month f/u Denies needing medication RF's Pt reports his sugars have been running around 110 Denies new complaints, unsure why he had to come in for this appointment Adult Risk Screening Initial Fall Risk Screening: ALEJANDRO has not fallen in the last 6 months. Tobacco Screening: ALEJANDRO does not use tobacco. History of Present Illness Patient is here today for 6 mo follow up Patient does check his blood pressures at home and he gets between 140-160s/80s/90s. He does not drink any caffeine and very little salt. DMII - a1c was 6.8%, was 6.6% CKD, RTA Type IV - cr was improved at 1.7, and K was normal at 4.7 HTN - manual recheck of bp today was 135/72, currently on coreg 25mg po bid, lsartan-hctz 100-25mg po daily Review of Systems Constitutional: no fever, no chills, not feeling poorly, not feeling tired, no recent weight gain and no recent weight loss. ENT: no earache, no hearing loss, no nosebleeds, no nasal discharge, no sore throat and no hoarseness. Cardiovascular: the heart rate was not slow, the heart rate was not fast, no chest pain, no palpitations, no intermittent leg claudication and no lower extremity edema. Respiratory: no cough, not coughing up sputum and no wheezing that is consistent with asthma. Gastrointestinal: no abdominal pain, no constipation, no melena, no nausea, no diarrhea, no vomiting and no blood in stools. Musculoskeletal: no arthralgias, no myalgias, no back pain, no joint swelling, no joint stiffness, no limb pain and no limb swelling. Integumentary: no rashes, no skin lesions, no itching, no skin wound and no dry skin. Neurological: no headache, no confusion, no numbness, no dizziness, no tingling and no fainting. All other systems have been reviewed and are negative for complaint. 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 Normal Sidewalk Auto Diffon 11-13-2018 Basophils (Bld) [#/Vol] 0.1 E3/mcL Normal 0.0-0.2 [facility] Comment on above: Order Comment: Order Added by Discern Expert. Performed By: #### 2 [id number] #### [employer] [address] [place] [address] Basophils/100 WBC (Bld) 1.0 % Normal 0.0-2.0 [facility] Comment on above: Order Comment: Order Added by Discern Expert. Performed By: #### 2 [id number] #### [employer] [address] [place] [address] Eos Absolute 0.4 E3/mcL Normal 0.0-0.7 [facility] Comment on above: Order Comment: Order Added by Discern Expert. Performed By: #### 2 [id number] #### [employer] [address] [place] [address] Eosinophils/100 WBC (Bld) 4.8 % Normal 0.0-11.0 [facility] Comment on above: Order Comment: Order Added by Tea Expert. Performed By: #### 2 [id number] #### [employer] [address] [place] [address] Lymphocytes (Bld) [#/Vol] 1.3 E3/mcL Normal 1.2-3.4 [facility] Comment on above: Order Comment: Order Added by Discern Expert. Performed By: #### 2 [id number] #### [employer] [address] [place] [address] Lymphocytes/100 WBC (Bld) 15.6 % Low 20.0-55.0 [facility] Comment on above: Order Comment: Order Added by Discern Expert. Performed By: #### 2 [id number] #### [employer] [address] [place] [address] Holt Absolute 0.5 E3/mcL Normal 0.0-0.7 [facility] Comment on above: Order Comment: Order Added by Discern Expert. Performed By: #### 2 [id number] #### [employer] [address] [place] [address] Monocytes/100 WBC (Bld) 6.4 % Normal 0.0-10.0 [facility] Comment on above: Order Comment: Order Added by Discern Expert. Performed By: #### 2 [id number] #### [employer] [facility] [place] [address] Neutro Absolute 5.9 E3/mcL Normal 1.4-6.5 [facility] Comment on above: Order Comment: Order Added by Discern Expert. Performed By: #### 2 [id number] #### [employer] [address] [place] [address] Neutro Auto 72.2 % Normal 37.0-75.0 [facility] Comment on above: Order Comment: Order Added by Discern Expert. Performed By: #### 2 [id number] #### [employer] [address] [place] [address] CBC w/ Auto Diffon 9 Erythrocyte distribution width (RBC) [Ratio] 13.2 % Normal 11.5-14.5 [facility] Comment on above: Performed By: #### 2 [id number] #### [employer] [address] [place], [place] [id number] Hematocrit (Bld) [Volume fraction] 43.1 % Normal 42.0-52.0 [facility] Comment on above: Performed By: #### 2 [id number] #### [employer] [address] [place] [address] Hemoglobin (Bld) [Mass/Vol] 14.6 g/dL Normal 13.5-18.0 [facility] Comment on above: Performed By: #### 2 [id number] #### [employer] [address] [place] [address] MCH (RBC) [Entitic mass] 30.3 pg Normal 27.0-31.0 [facility] Comment on above: Performed By: #### 2 [id number] #### [employer] [employer] [address] [place] [address] 76606 MCHC (RBC) [Mass/Vol] 33.8 g/dL Normal 33.0-37.0 [facility] Comment on above: Performed By: #### 2 [id number] #### [employer] [address] [place] [address] 15904 MCV (RBC) [Entitic vol] 89.7 fL Normal 78.0-100.0 [facility] Comment on above: Performed By: #### 2 [id number] #### [employer] [address] [place] [address] 23009 Platelet mean volume (Bld) [Entitic vol] 10.0 fL Normal 7.4-11.0 [facility] Comment on above: Performed By: #### 2 [id number] #### [employer] [address] [place] [address] 45007 Platelets (Bld) [#/Vol] 185 E3/mcL Normal 130-400 [facility] Comment on above: Performed By: #### 2 146075 #### [employer] [address] [place] [address] 47995 RBC (Bld) [#/Vol] 4.81 E6/mcL Normal 3.90-6.10 [facility] Comment on above: Performed By: #### 2 [id number] #### [employer] [address] [place] [address] 86808 WBC (Bld) [#/Vol] 8.2 E3/mcL Normal 3.6-11.0 [facility] Comment on above: Performed By: #### 2 688334 #### [employer] [address] [place] [address] 55448 CMPon 11-13-2018 Albumin [Mass/Vol] 4.0 g/dL Normal 3.4-5.0 [facility] Comment on above: Performed By: #### 2 [id number] #### [employer] [address] [place] [address] 84897 Albumin/Globulin [Mass ratio] 1.4 {ratio} Normal 1.1-1.9 [facility] Comment on above: Performed By: #### 2 468350 #### [employer] [address] [place] [address] 47516 Alk Phos 137 Int._Unit/L High 33-136 [facility] Comment on above: Performed By: #### 2 [id number] #### [employer] [address] [place] [address] 85960 ALT [Catalytic activity/Vol] 24 Int._Unit/L Normal 10-52 [facility] Comment on above: Performed By: #### 2 [id number] #### [employer] [address] [place] [address] 61776 Anion gap [Moles/Vol] 12 mmol/L Normal 10-20 [facility] Comment on above: Performed By: #### 2 789684 #### [employer] [address] [place] [address] 97544 AST [Catalytic activity/Vol] 19 Int._Unit/L Normal 9-39 [facility] Comment on above: Performed By: #### 2 013283 #### [employer] [address] [place] [address] 00206 Bili Total 0.34 mg/dL Normal 0.00-1.20 [facility] Comment on above: Performed By: #### 2 778110 #### [employer] [address] [place] [address] 58400 Calcium [Mass/Vol] 9.6 mg/dL Normal 8.6-10.3 [facility] Comment on above: Performed By: #### 2 291766 #### [employer] [address] [place] [address] 84461 Chloride [Moles/Vol] 112 mmol/L High 98-107 [facility] Comment on above: Performed By: #### 2 696085 #### [facility] [employer] [address] [place] [address] 71498 CO2 [Moles/Vol] 21.0 mmol/L Normal 21.0-32.0 [facility] Comment on above: Performed By: #### 2 260837 #### [employer] [address] [place] [address] 54166 Creatinine [Mass/Vol] 2.2 mg/dL High 0.5-1.3 [facility] Comment on above: Performed By: #### 2 954853 #### [employer] [address] [place] [address] 78343 Globulin (S) [Mass/Vol] 3.0 g/dL Normal 2.0-4.0 [facility] Comment on above: Performed By: #### 2 788388 #### [employer] [address] [place] [address] 14367 Glucose [Mass/Vol] 145 mg/dL High 70-99 [facility] Comment on above: Performed By: #### 2 872407 #### [facility] [address] [place] [address] 40535 Potassium [Moles/Vol] 6.2 mmol/L High 3.5-5.3 [facility] Comment on above: Performed By: #### 2 296265 #### [employer] [address] [place] [address] 73550 Protein [Mass/Vol] 6.9 g/dL Normal 6.4-8.2 [facility] Comment on above: Performed By: #### 2 261816 #### [employer] [address] [place] [address] 84496 Sodium [Moles/Vol] 139 mmol/L Normal 136-145 [facility] Comment on above: Performed By: #### 2 761272 #### [employer] [address] [place] [address] 15513 Urea nitrogen [Mass/Vol] 46 mg/dL High -23 [facility] Comment on above: Performed By: #### 2 184017 #### [employer] [address] [place] [address] 94651 Urea nitrogen/Creatinin e [Mass ratio] 20.9 ratio Normal 5.4-30.0 [facility] Comment on above: Performed By: #### 2 642660 #### [employer] [address] [place] [address] 14556 Magnesiumon 11-13-2018 Magnesium [Mass/Vol] 1.9 Int._Unit/L Normal 1.6-2.4 [facility] Comment on above: Performed By: #### 2 904852 #### [employer] [address] [place] [address] 95760 Phosphoruson 11-13-2018 Phosphate [Mass/Vol] 2.6 mg/dL Normal 2.5-4.9 [facility] Comment on above: Performed By: #### 2 346719 #### [employer] [address] [place] [address] 47200 eGFRon 11-13-2018 GFR/1.73 sq M predicted among non-blacks MDRD (S/P/Bld) [Vol rate/Area] 36 mL/min/1.73 m2 Normal [facility] Comment on above: Order Comment: Order added by Discern Expert. Performed By: #### 2 [id number] #### [employer] [address] [place] [address] GFR/1.73 sq M predicted among non-blacks MDRD (S/P/Bld) [Vol rate/Area] 30 mL/min/1.73 m2 Normal [facility] Comment on above: Order Comment: Order added by Discern Expert. Performed By: #### 2 790331 #### [facility] [employer] [address] [place] [address] BMPon 10-18-2018 Anion gap [Moles/Vol] 12 mmol/L Normal 10-20 [facility] Comment on above: Performed By: #### 2 984916 #### [employer] [address] [place] [address] 41918 Calcium [Mass/Vol] 9.8 mg/dL Normal 8.6-10.3 [facility] Comment on above: Performed By: #### 2 556866 #### [employer] [address] [place] [address] 65965 Chloride [Moles/Vol] 108 mmol/L High 98-107 [facility] Comment on above: Performed By: #### 2 264250 #### [employer] [employer] [address] [place] [address] CO2 [Moles/Vol] 21.0 mmol/L Normal 21.0-32.0 [facility] Comment on above: Performed By: #### 2 941800 #### [employer] [address] [place] [address] Creatinine [Mass/Vol] 2.0 mg/dL High 0.5-1.3 [facility] Comment on above: Performed By: #### 2 628753 #### [employer] [address] [place] [address] Glucose [Mass/Vol] 114 mg/dL High 70-99 [facility] Comment on above: Performed By: #### 2 433383 #### [employer] [address] [place] [address] Potassium [Moles/Vol] 5.1 mmol/L Normal 3.5-5.3 [facility] Comment on above: Performed By: #### 2 976959 #### [facility] [employer] [address] [place] [address] Sodium [Moles/Vol] 136 mmol/L Normal 136-145 [facility] Comment on above: Performed By: #### 2 907773 #### [facility] [address] [place] [address] 13634 Urea nitrogen [Mass/Vol] 39 mg/dL High 6-23 [facility] Comment on above: Performed By: #### 2 457810 #### [facility] [address] [place] [address] Urea nitrogen/Creatinin e [Mass ratio] 19.5 ratio Normal 5.4-30.0 [facility] Comment on above: Performed By: #### 2 635617 #### [facility] [employer] [address] [place] [address] 62649 [id number] 10-18-2018 HbA1c (Bld) [Mass fraction] 7.7 % High 4.0-6.3 [facility] Comment on above: Performed By: #### 2 453605 #### [employer] [address] [place] [address] 87036 Lipid Profileon 10-18-2018 Cholesterol [Mass/Vol] 206 mg/dL High 0-199 [facility] Comment on above: Performed By: #### 2 318529 #### [employer] [address] [place] [address] 07797 Cholesterol in HDL [Mass/Vol] 39 mg/dL Low 40-60 [facility] Comment on above: Performed By: #### 2 741441 #### [employer] [address] [place] [address] 31572 Cholesterol in LDL [Mass/Vol] 125 mg/dL Normal 0-130 [facility] Comment on above: Performed By: #### 2 159180 #### [employer] [address] [place] [address] 34213 Cholesterol in VLDL [Mass/Vol] 42 mg/dL High 0-40 [facility] Comment on above: Performed By: #### 2 682318 #### [employer] [address] [place] [address] Triglyceride [Mass/Vol] 210 mg/dL High 0-149 [facility] Comment on above: Result Comment: AGE DESIRABLE BORDERLINE HIGH 91 D - 9 Y 0 - 74 75 - 99 > 100 10 - 19 Y 0 - 89 90 - 129 > 130 20 - 24 Y 0 - 114 115 - 149 > 150 > 25 0 - 149 150 - 199 200 - 499 Performed By: #### 2 625761 #### [employer] [address] [place] [address] 19079 U Creatinineon 10-18-2018 U Creatinine 132 mg/dL Normal 20-300 [facility] Comment on above: Performed By: #### 2 335531 #### [employer] [address] [place] [address] 41957 U Proteinon 10-18-2018 Protein [Mass/Vol] 22 mg/dL High 1-14 [facility] Comment on above: Performed By: #### 2 283537 #### [employer] [address] [place] [address] 73945 eGFRon 10-18-2018 GFR/1.73 sq M predicted among non-blacks MDRD (S/P/Bld) [Vol rate/Area] 41 mL/min/1.73 m2 Normal [facility] Comment on above: Order Comment: Order added by Discern Expert. Performed By: #### 1 [id number] #### [employer] [address] [place] [address] 82354 GFR/1.73 sq M predicted among non-blacks MDRD (S/P/Bld) [Vol rate/Area] 34 mL/min/1.73 m2 Normal [facility] Comment on above: Order Comment: Order added by Discern Expert. Performed By: #### 1 [id number] #### [employer] [employer] [facility] [place] [address] BMPon 08-21-2018 Anion gap [Moles/Vol] 10 mmol/L Normal 10-20 [facility] Comment on above: Performed By: #### 2 350071 #### [facility] [employer] [facility] [place] [address] Calcium [Mass/Vol] 10.2 mg/dL Normal 8.6-10.3 [facility] Comment on above: Performed By: #### 2 411569 #### [facility] [employer] [address] [place] [address] Chloride [Moles/Vol] 107 mmol/L Normal 98-107 [facility] Comment on above: Performed By: #### 2 045892 #### [facility] [employer] [address] [place] [address] CO2 [Moles/Vol] 24.0 mmol/L Normal 21.0-32.0 [facility] Comment on above: Performed By: #### 2 800086 #### [facility] [address] [place] [address] Creatinine [Mass/Vol] 1.6 mg/dL High 0.5-1.3 [facility] Comment on above: Performed By: #### 2 299822 #### [facility] [employer] [address] [place] [address] Glucose [Mass/Vol] 146 mg/dL High 70-99 [facility] Comment on above: Performed By: #### 2 768032 #### [facility] [address] [place] [address] Potassium [Moles/Vol] 5.0 mmol/L Normal 3.5-5.3 [facility] Comment on above: Performed By: #### 2 994521 #### [facility] [employer] [address] [place] [address] Sodium [Moles/Vol] 136 mmol/L Normal 136-145 [facility] Comment on above: Performed By: #### 2 122375 #### [employer] [address] [place] [address] Urea nitrogen [Mass/Vol] 33 mg/dL High 6-23 [facility] Comment on above: Performed By: #### 2 813985 #### [employer] [address] [place] [address] Urea nitrogen/Creatinin e [Mass ratio] 20.6 ratio Normal 5.4-30.0 [facility] Comment on above: Performed By: #### 2 706929 #### [employer] [address] [place] [address] eGFRon 08-21-2018 GFR/1.73 sq M predicted among non-blacks MDRD (S/P/Bld) [Vol rate/Area] 51 mL/min/1.73 m2 Normal [facility] Comment on above: Order Comment: Order added by Discern Expert. Performed By: #### 1 [id number] #### [facility] [employer] [facility] [place] [address] GFR/1.73 sq M predicted among non-blacks MDRD (S/P/Bld) [Vol rate/Area] 42 mL/min/1.73 m2 Normal [facility] Comment on above: Order Comment: Order added by Discern Expert. Performed By: #### 1 [id number] #### [employer] [address] [place] [address] CMPon 07-30-2018 Albumin [Mass/Vol] 4.4 g/dL Normal 3.4-5.0 [facility] Comment on above: Performed By: #### 2 867396 #### M[facility]DEL [employer] [address] [place] [address] Albumin/Globulin [Mass ratio] 1.8 {ratio} Normal 1.1-1.9 [facility] Comment on above: Performed By: #### 2 617252 #### [employer] [address] [place], [place] [address] Alk Phos 148 Int._Unit/L High 33-136 [facility] Comment on above: Performed By: #### 2 484296 #### [employer] [address] [place] [address] 21353 ALT [Catalytic activity/Vol] 20 Int._Unit/L Normal 10-52 [facility] Comment on above: Performed By: #### 2 717669 #### [employer] [address] [place] [address] 02721 Anion gap [Moles/Vol] 12 mmol/L Normal 10-20 [facility] Comment on above: Performed By: #### 2 322242 #### [employer] [address] [place] [address] 51413 AST [Catalytic activity/Vol] 19 Int._Unit/L Normal 9-39 [facility] Comment on above: Performed By: #### 2 934373 #### [employer] [address] [place] [address] 93358 Bili Total 0.42 mg/dL Normal 0.00-1.20 [facility] Comment on above: Performed By: #### 2 030532 #### [employer] [address] [place] [address] 65407 Calcium [Mass/Vol] 9.6 mg/dL Normal 8.6-10.3 [facility] Comment on above: Performed By: #### 2 987750 #### [employer] [address] [place] [address] 12079 Chloride [Moles/Vol] 107 mmol/L Normal 98-107 [facility] Comment on above: Performed By: #### 2 681786 #### [employer] [address] [place] [address] 52232 CO2 [Moles/Vol] 24.0 mmol/L Normal 21.0-32.0 [facility] Comment on above: Performed By: #### 2 234573 #### [employer] [address] [place] [address] 17710 Creatinine [Mass/Vol] 1.9 mg/dL High 0.5-1.3 [facility] Comment on above: Performed By: #### 2 314766 #### [employer] [address] [place] [address] 02656 Globulin (S) [Mass/Vol] 3.0 g/dL Normal 2.0-4.0 [facility] Comment on above: Performed By: #### 2 785824 #### [employer] [address] [place] [address] 09867 Glucose [Mass/Vol] 139 mg/dL High 70-99 [facility] Comment on above: Performed By: #### 2 383658 #### [employer] [address] [place] [address] 72753 Potassium [Moles/Vol] 4.8 mmol/L Normal 3.5-5.3 [facility] Comment on above: Performed By: #### 2 506196 #### [employer] [address] [place] [address] 85777 Protein [Mass/Vol] 6.9 g/dL Normal 6.4-8.2 [facility] Comment on above: Performed By: #### 2 913167 #### [employer] [address] [place] [address] 41972 Sodium [Moles/Vol] 138 mmol/L Normal 136-145 [facility] Comment on above: Performed By: #### 2 923767 #### [employer] [address] [place] [address] 48652 Urea nitrogen [Mass/Vol] 45 mg/dL High 6-23 [facility] Comment on above: Performed By: #### 2 973228 #### [employer] [address] [place] [address] 86622 Urea nitrogen/Creatinin e [Mass ratio] 23.7 ratio Normal 5.4-30.0 [facility] Comment on above: Performed By: #### 2 724702 #### [employer] [address] [place] [address] 08870 eGFRon 07-30-2018 GFR/1.73 sq M predicted among non-blacks MDRD (S/P/Bld) [Vol rate/Area] 44 mL/min/1.73 m2 Normal [facility] Comment on above: Order Comment: Order added by Discern Expert. Performed By: #### 1 [id number] #### [facility] [employer] [address] [place] [address] 42788 GFR/1.73 sq M predicted among non-blacks MDRD (S/P/Bld) [Vol rate/Area] 36 mL/min/1.73 m2 Normal [facility] Comment on above: Order Comment: Order added by Discern Expert. Performed By: #### 1 [id number] #### [facility] [employer] [address] [place] [address] 17860 CMPon 07-23-2018 Albumin [Mass/Vol] 4.7 g/dL Normal 3.4-5.0 [facility] Comment on above: Performed By: #### 2 703702 #### [employer] [address] [place] [address] 31084 Albumin/Globulin [Mass ratio] 1.6 {ratio} Normal 1.1-1.9 [facility] Comment on above: Performed By: #### 2 277677 #### [employer] [address] [place] [address] 20281 Alk Phos 144 Int._Unit/L High 33-136 [facility] Comment on above: Performed By: #### 2 955117 #### [employer] [address] [place] [address] 74808 ALT [Catalytic activity/Vol] 22 Int._Unit/L Normal 10-52 [facility] Comment on above: Performed By: #### 2 387319 #### [employer] [address] [place] [address] 82781 Anion gap [Moles/Vol] 13 mmol/L Normal 10-20 [facility] Comment on above: Performed By: #### 2 642017 #### [facility] [employer] [address] [place], [place] [address] AST [Catalytic activity/Vol] 16 Int._Unit/L Normal 9-39 [facility] Comment on above: Performed By: #### 2 190096 #### [facility] [employer] [address] [place] [address] Bili Total 0.48 mg/dL Normal 0.00-1.20 [facility] Comment on above: Performed By: #### 2 303587 #### [facility] [employer] [address] [place] [address] 64481 Calcium [Mass/Vol] 9.6 mg/dL Normal 8.6-10.3 [facility] Comment on above: Performed By: #### 2 046562 #### [employer] [address] [place] [address] 26675 Chloride [Moles/Vol] 101 mmol/L Normal 98-107 [facility] Comment on above: Performed By: #### 2 935582 #### [employer] [address] [place] [address] 91781 CO2 [Moles/Vol] 28.0 mmol/L Normal 21.0-32.0 [facility] Comment on above: Performed By: #### 2 662896 #### [employer] [address] [place] [address] 79093 Creatinine [Mass/Vol] 2.3 mg/dL High 0.5-1.3 [facility] Comment on above: Performed By: #### 2 819875 #### [employer] [address] [place] [address] 83828 Globulin (S) [Mass/Vol] 3.0 g/dL Normal 2.0-4.0 [facility] Comment on above: Performed By: #### 2 009106 #### [employer] [address] [place] [address] 66448 Glucose [Mass/Vol] 182 mg/dL High 70-99 [facility] Comment on above: Performed By: #### 2 200399 #### [employer] [address] [place] [address] 23879 Potassium [Moles/Vol] 4.7 mmol/L Normal 3.5-5.3 [facility] Comment on above: Performed By: #### 2 824773 #### [employer] [address] [place] [address] 52483 Protein [Mass/Vol] 7.6 g/dL Normal 6.4-8.2 [facility] Comment on above: Performed By: #### 2 269724 #### [employer] [address] [place] [address] 37168 Sodium [Moles/Vol] 137 mmol/L Normal 136-145 [facility] Comment on above: Performed By: #### 2 382135 #### [employer] [address] [place] [address] 19482 Urea nitrogen [Mass/Vol] 55 mg/dL High 6-23 [facility] Comment on above: Performed By: #### 2 495872 #### [employer] [address] [place] [address] 17954 Urea nitrogen/Creatinin e [Mass ratio] 23.9 ratio Normal 5.4-30.0 [facility] Comment on above: Performed By: #### 2 812382 #### [employer] [address] [place] [address] 99936 [id number] 07-23-2018 HbA1c (Bld) [Mass fraction] 8.1 % High 4.0-6.3 [facility] Comment on above: Performed By: #### 3 [id number] #### [facility] Chemistry Manual Subsection [address] [place] [address] 26791 eGFRon 07-23-2018 GFR/1.73 sq M predicted among non-blacks MDRD (S/P/Bld) [Vol rate/Area] 35 mL/min/1.73 m2 Normal [facility] Comment on above: Order Comment: Order added by Discern Expert. Performed By: #### 1 [id number] #### [facility] [employer] [address] [place] [address] GFR/1.73 sq M predicted among non-blacks MDRD (S/P/Bld) [Vol rate/Area] 29 mL/min/1.73 m2 Normal [facility] Comment on above: Order Comment: Order added by Discern Expert. Performed By: #### 1 [id number] #### [facility] [employer] [address] [place] [address] US Renalon 01-04-2018 US Renal Exam Date/Time: 01/04/2018 14:17 EDT Reason for Exam: CKD STAGE 3 Report STUDY: US Renal 01/04/2018 2:17 pm INDICATION: 67 y/o M with CKD STAGE 3. COMPARISON: None. ACCESSION NUMBER(S): [id number] ORDERING CLINICIAN: Amarjit Garcia TECHNIQUE: Multiple grayscale ultrasonographic images were obtained through the kidneys and urinary bladder. FINDINGS: RIGHT KIDNEY: The right kidney is within normal limits for size, measuring at up to 12.6 cm in length. There is increased cortical echogenicity within the kidney, which can be seen with medical renal disease. There is no hydronephrosis or hydroureter identified. Multiple cysts are seen within the right kidney, the largest of which measures at 2.0 x 1.3 x 1.5 cm No discrete renal calculi are identified. LEFT KIDNEY: The left kidney is within normal limits for size, measuring at up to 12.0 cm in length. There is increased cortical echogenicity within the kidney, which can be seen with medical renal disease. There is no hydronephrosis or hydroureter identified. A cyst is seen in the upper pole of the left kidney, measuring up to 2.4 x 1.4 x 2.7 cm. No discrete renal calculi are identified. BLADDER: The urinary bladder is grossly unremarkable in appearance. IMPRESSION: 1. No hydronephrosis or hydroureter bilaterally. 2. Increased cortical echogenicity within the kidneys bilaterally, which can be seen with medical renal disease. Exam Date/Time: 01/04/2018 14:17 EDT Report 3. Bilateral renal cysts, as above. FINAL REPORT Dictated: 01/04/2018 2:32 pm Dany Kimble MD Signed (Electronic Signature): 01/04/2018 2:32 pm Signed by: Dany Kimble MD Technologist: [facility] Vital Signs Date Time Vital Sign Value Performing Clinician Facility 10-05-2021 13:16-0400 Diastolic blood pressure 68 mm[Hg] Massimo Oberhauser Other Phone: [facility] 10-05-2021 13:16-0400 Systolic blood pressure 101 mm[Hg] Massimo Oberhauser Other Phone: [facility] 10-05-2021 13:12-0400 Heart rate 67 /min Massimo Oberhauser Other Phone: [facility] 10-05-2021 13:12-0400 Respiratory rate 16 /min Massimo Oberhauser Other Phone: [facility] 10-05-2021 13:12-0400 SaO2% (BldA) [Mass fraction] 96 % Massimo Oberhauser Other Phone: [facility] 10-05-2021 12:45-0400 Body height 175.2 cm Massimo Oberhauser Other Phone: [facility] 10-05-2021 12:45-0400 Body temperature 97.34 [degF] Massimo Oberhauser Other Phone: [facility] 10-05-2021 12:45-0400 Body weight 98.2 kg Massimo Oberhauser Other Phone: [facility] 10-05-2021 12:03-0400 Body height 175 cm Massimo Oberhauser Other Phone: [facility] 10-05-2021 12:03-0400 Body temperature 96.8 [degF] Massimo Oberhauser Other Phone: [facility] 10-05-2021 12:03-0400 Diastolic blood pressure 61 mm[Hg] Massimo Oberhauser Other Phone: [facility] 10-05-2021 12:03-0400 Heart rate 76 /min Massimo Oberhauser Other Phone: [facility] 10-05-2021 12:03-0400 SaO2% (BldA) [Mass fraction] 95 % Massimo Oberhauser Other Phone: [facility] 10-05-2021 12:03-0400 Systolic blood pressure 97 mm[Hg] Massimo Oberhauser Other Phone: [facility] 03-30-2021 08:45-0500 Body height 172.72 cm Massimo L Oberhauser Work Phone: [facility] [facility] Work Phone: 03-30-2021 08:45-0500 Body mass index (BMI) [Ratio] 31.02 kg/m2 Massimo L Oberhauser Work Phone: [facility] Work Phone: 03-30-2021 08:45-0500 Body surface area Derived from formula 2.06 m2 Massimo L Oberhauser Work Phone: [facility] Work Phone: 03-30-2021 08:45-0500 Body temperature 97.8 [degF] Massimo L Oberhauser Work Phone: [facility] Work Phone: 03-30-2021 08:45-0500 Body weight 92.53 kg Massimo L Oberhauser Work Phone: [facility] Work Phone: 03-30-2021 08:45-0500 Diastolic blood pressure 70 mm[Hg] Massimo L Oberhauser Work Phone: [facility] Work Phone: 03-30-2021 08:45-0500 Heart rate 78 /min Massimo L Oberhauser Work Phone: [facility] Work Phone: 03-30-2021 08:45-0500 Systolic blood pressure 129 mm[Hg] Massimo L Oberhauser Work Phone: [facility] Work Phone: 03-22-2021 15:45-0500 Body height 172.72 cm Massimo L Oberhauser Work Phone: [facility] Work Phone: 03-22-2021 15:45-0500 Body mass index (BMI) [Ratio] 31.93 kg/m2 Massimo L Oberhauser Work Phone: [facility] Work Phone: 03-22-2021 15:45-0500 Body surface area Derived from formula 2.09 m2 Massimo L Oberhauser Work Phone: [facility] Work Phone: 03-22-2021 15:45-0500 Body temperature 97.5 [degF] Massimo L Oberhauser Work Phone: [facility] Work Phone: 03-22-2021 15:45-0500 Body weight 95.26 kg Massimo L Oberhauser Work Phone: [facility] Work Phone: 11-29-2021 15:45-0500 Diastolic blood pressure 74 mm[Hg] Massimo L Oberhauser Work Phone: [facility] Work Phone: 03-22-2021 15:45-0500 Heart rate 68 /min Massimo L Oberhauser Work Phone: [facility] Work Phone: 03-22-2021 15:45-0500 Systolic blood pressure 132 mm[Hg] Massimo L Oberhauser Work Phone: [facility] Work Phone: 12-03-2020 14:13-0400 Body height 172.72 cm Massimo L Oberhauser Work Phone: [facility] Work Phone: 12-03-2020 14:13-0400 Body mass index (BMI) [Ratio] 32.99 kg/m2 Massimo L Oberhauser Work Phone: [facility] Work Phone: 12-03-2020 14:13-0400 Body surface area Derived from formula 2.12 m2 Massimo L Oberhauser Work Phone: [facility] Work Phone: 12-03-2020 14:13-0400 Body temperature 97.8 [degF] Massimo L Oberhauser Work Phone: [facility] Work Phone: 12-03-2020 14:13-0400 Body weight 98.43 kg Massimo L Oberhauser Work Phone: [facility] Work Phone: 12-03-2020 14:13-0400 Diastolic blood pressure 78 mm[Hg] Massimo L Oberhauser Work Phone: [facility] Work Phone: 12-03-2020 14:13-0400 Heart rate 74 /min Massimo Bray Facundomargaritaer Work Phone: [facility] Work Phone: 12-03-2020 14:13-0400 Systolic blood pressure 115 mm[Hg] Massimo Bray Facundodiana Work Phone: [facility] Work Phone: Encounters Encounter Date Encounter Type Care Provider Facility Start: 12-22-2023 Postop follow up vis it related to original px Amarjit Bassett [facility] Start: 12-22-2023 ambulatory Amarjit Bassett [facility] Start: 10-05-2021 End: 10-05-2021 [facility] Start: 04-08-2021 AUDIT Massimo L Oberan user Work Phone: [facility] Work Phone: Start: 04-07-2021 Chart Update Massimo Asa Oberha user Work Phone: [facility] Work Phone: Start: 03-30-2021 Current tobacco non-user cad cap copd pv dm Massimokirk Rojoольгаer Work Phone: [facility] Work Phone: Start: 03-30-2021 EPV, Provider: Massimo Dave, Status: Pen, Time: 8:40 AM Massimo Rojoольгаer Work Phone: [facility] Work Phone: Start: 03-29-2021 AUDIT Massimo Bray Oberha user Work Phone: [facility] Work Phone: Start: 03-26-2021 AUDIT Massimo L Oberha user Work Phone: [facility] Work Phone: Start: 03-22-2021 Office outpatient vi sit 15 minutes Massimo Bray Oberhauser Work Phone: [facility] Work Phone: Start: 03-15-2021 Chart Update Massimo L Oberha user Work Phone: [facility] Work Phone: Start: 03-12-2021 AUDIT Massimo L Oberha user Work Phone: [facility] Work Phone: Start: 02-03-2021 Rx Renewal Massimo Asa Oberha user Work Phone: [facility] Work Phone: Start: 12-23-2020 AUDIT Massimo L Oberha user Work Phone: [facility] Work Phone: Start: 12-03-2020 Office outpatient vi sit 25 minutes Massimo Rojohauser Work Phone: [facility] Work Phone: Start: 11-25-2020 Chart Update Massimo L Oberha user Work Phone: [facility] Work Phone: Start: 11-24-2020 Chart Update Massimo L Oberha user Work Phone: [facility] Work Phone: Start: 10-07-2020 Rx Renewal Massimo L Oberha user Work Phone: [facility] Work Phone: Patient encounter procedure Massimokirk Loredoerhauser Work Phone: [facility] Work Phone: Procedures Date Procedure Procedure Detail Performing Clinician Start: 12-22-2023 Computerized ophthal abigail imaging retina Amarjit Bassett Start: 12-22-2023 Intravitreal Injecti on Of Phamacologic Agent Amarjit Bassett Start: 12-22-2023 Vabysmo Maitemab-Sv oa 0.1mg Amarjit Bassett Colonoscopy Massimo Herrerau ser Work Phone: Comment on above: 05/[address] Farfan; Plan of Treatment Date Care Activity Detail Author Start: 03-30-2021 EPV, Provider: Massimo Dave, Status: Pen, Time: 8:40 AM EPV, Provider: Massimo Dave, Status: Pen, Time: 8:40 AM [facility] Work Phone: Start: 12-03-2020 FUV, Provider: Massimo Dave, Status: Pen, Time: 2:20 PM FUV, Provider: Massimo Dave, Status: Pen, Time: 2:20 PM [facility] Work Phone: History of colonoscopy History of colonos copy [facility] History of colonoscopy History of colonos copy [facility] Immunizations Immunization Date Immunization Notes Care Provider Fa jessicaty 02-19-2021 Moderna COVID-19 Vaccine 100 MCG/0.5ML Intramuscular Suspension Massimo Dave Work Phone: [facility] Work Phone: 01-28-2021 Fluad Quadrivalent 0 .5 ML Intramuscular Prefilled Syringe Massimo Dave Work Phone: [facility] Work Phone: Comment on above: Series: 01-28-2021 influenza, seasonal, injectable Massimo Dave Work Phone: [facility] Work Phone: Comment on above: Series: 01-28-2021 zoster vaccine recombinant Massimo Dave Work Phone: [facility] Work Phone: Comment on above: Series: 07-24-2020 Moderna COVID-19 Vaccine 100 MCG/0.5ML Intramuscular Suspension Massimo Dave Work Phone: [facility] Work Phone: 06-24-2020 Moderna COVID-19 Vaccine 100 MCG/0.5ML Intramuscular Suspension Massimo Dave Work Phone: [facility] Work Phone: 01-24-2020 Fluzone High-Dose Quadrivalent 0.7 ML Intramuscular Suspension Prefilled Syringe Massimo Dave Work Phone: [facility] Work Phone: 01-24-2020 influenza, seasonal, injectable Massimo Dave Work Phone: [facility] Work Phone: Comment on above: Series: 01-24-2020 pneumococcal conjuga te vaccine, 13 valent Massimo Dave Work Phone: [facility] Work Phone: Payers Date Payer Category Payer Medicare [id number] 2018 Medicare [id number] 1950 Unknown [id number] Unknown Social History Date Type Detail Facility Never smoker Never smoker [facility] Work Phone: Tobacco smoking consumption unknown [facility] Progress note 03-20-2021 Note Date & Type Note Facility 03-20-2021 Note HNO ID: [id number] Author: Jack Lopez APRN.HOSPITAL CLINIC ASSISTANT Service: ? Author Type: Nurse Practitioner Type: Progress Notes Filed: 03/20/2021 9:41 AM Note Text: Subjective HPI HPI Alejandro Smith is a 70 year old male who presents today for CC of itching all over. This started 3 days ago. Has tried otc medication without relief. Symptoms are worsened by nothing known. Risk factors diabetic, sugars have been elevated, had recent steroid injection, sugar today 180. Denies uri symptoms, cp/sob, diarrhea, abd pain. .Patient presents with: Acute Visit: pruritis x 3 days- No past medical history on file. No past surgical history on file. ALLERGIES Patient has no known allergies. MEDICATIONS carvedilol (COREG) 25 mg tablet Take 1 tablet by mouth once daily. TRESIBA FLEXTOUCH U-200 200 unit/mL (3 mL) injection Inject 88 Units subcutaneously once daily. losartan-hydroCHLOROthiazide (HYZAAR) 100-25 mg per tablet Take 1 tablet by mouth once daily. pioglitazone (ACTOS) 15 mg tablet Take 1 tablet by mouth once daily. JANUMET 50-1,000 mg per tablet Take 2 tablets by mouth once daily. insulin aspart (NOVOLOG FLEXPEN U-100 INSULIN SUBCUTANEOUS) Inject subcutaneously. Use when BS is over 200 on a sliding scale hydrOXYzine HCl (ATARAX) 25 mg tablet Take 1 tablet by mouth three times daily as needed for itching/rash. triamcinolone acetonide (KENALOG) 0.1 % cream Apply 1 application to affected area three times daily for 10 days. Apply sparingly to area for rash/itching. No family history on file. Social History Tobacco Use - Smoking status: Never Smoker - Smokeless tobacco: Never Used Substance Use Topics - Alcohol use: Not on file - Drug use: Not on file ROS Objective Blood pressure 128/84, pulse 74, temperature 36.4 ?C (97.6 ?F), temperature source Left Tympanic, resp. rate 16, weight 95.3 kg (210 lb), SpO2 95 %. Physical Exam Constitutional: General: He is not in acute distress. Appearance: He is not toxic-appearing or diaphoretic. HENT: Head: Normocephalic and atraumatic. Cardiovascular: Rate and Rhythm: Normal rate and regular rhythm. Heart sounds: Normal heart sounds, S1 normal and S2 normal. Pulmonary: Effort: Pulmonary effort is normal. Breath sounds: Normal breath sounds. Skin: Comments: No rash present Neurological: Mental Status: He is alert and oriented to person, place, and time. Gait: Gait is intact. ASSESSMENT/PLAN: 1. Pruritus - ICD9: 698.9, ICD10: L29.9 -use medication as prescribed -follow up if symptoms persist, worsen, change - HYDROXYZINE HCL 25 MG TABLET - TRIAMCINOLONE ACETONIDE 0.1 % TOPICAL CREAM Jack Lopez APRN.HOSPITAL CLINIC ASSISTANT [facility] History of Present illness Narrative Note Date & Type Note Facility History of Present illness Narrative Patient is here today for follow up on DMIIDMII - his a1c went 8.8%. he is not working out due to the plantar fascitis, he is down about 10 lbs from when I last saw him. Patient reports blood sugars have been erratic at times, 110, the next day it was 200. [facility] Work Phone: History of Present illness Narrative Note Date & Type Note Facility History of Present illness Narrative Patient is here today for cc of diffuse itching.He had injection in the top of his foot for bone spur by [facility] at the beginning of the month, he is not sure if it was Kenalog, or what it was.Pt reports it started wed evening, just diffuse itching, no obvious hives. no nw soaps lotions or detergent.s Wed night his blood sugar was 395. Has been lower in 160s since.Went to urgent care and was given Vistaril which did not help.He states something similar happened about 20 years ago, he remembers going to see Dr Mojica. [facility] Work Phone: History of Present illness Narrative Note Date & Type Note Facility History of Present illness Narrative The patient is being seen for the subsequent annual wellness visit.Past Medical, Surgical and Family History: reviewed and updated in chart.Interval History: Patient has not been hospitalized previously.Medications and Supplements: Medications and supplements, including calcium and vitamins reviewed and updated in chart.No, the patient is not using opioids.Health Risk Assessment:During the past 4 weeks:How much have you been bothered by feeling anxious, depressed, irritable or sad, downhearted or blue? Not at all.Has your physical and emotional health limited your social activities with family, friends, neighbors or groups? Slightly.In general bodily pain: No pain.Was someone available to help you if you needed or wanted help: Yes, as much as I wanted.The hardest physical activity you could do for at least 2 minutes: Heavy.Yes, can get to places out of walking distance without help.Yes, can shop for groceries or clothes without help.Yes, does prepare meals.Yes, does housework without help.Yes, handles money without help.Does not need help eating, bathing, dressing, or getting around home.Rates health in general: Good.How have things been going for you? Pretty good.Having difficulties driving a car: No.Always fastens seatbelt when in a car: Yes, usually.Has fallen or gotten dizzy when standing up: NeverSexual problems: NeverHas trouble eating: NeverHas problems with teeth or dentures: NeverHas problems using the telephone: NeverTired or fatigued: Never No, has not fallen 2 or more times in the past year. No, not afraid of falling.Number of drinks of wine, beer or other alcoholic beverages: 1 drink or less per week.Exercise for about 20 minutes 3 or more days a week: No, I usually do not exercise this much.Have you been given any information to help you with the following: Yes, has given information regarding hazards in the home that might hurt you. Yes, has been given information regarding keeping track of medications.Do you have trouble taking medicines the way told to take them: I always take them as prescribed.Confidence in control and management of most health problems: Somewhat cofident.Tobacco use: Non-UserAlcohol use: UserIllicit drug use: Non-UserCurrent diet: Diabetic Diet, does consume adequate fluids and does consume caffeine.Exercise Frequency: infrequently.Depression/Suicide Screening: .During the past 2 weeks, the patient has not felt down, depressed or hopeless.During the past 2 weeks, the patient has not felt little interest or pleasure in doing things.Hearing Impairment: none.Cognitive Impairment: No cognitive impairment observed.Bathing: performs independently.Dressing: performs independently.Walking: performs independently.Toileting: performs independently.Feeding: performs independently.Personal Hygiene: performs independently.Bowels: continent.Bladder: continent.Managing Finances: performs independently.Shopping: performs independently.Managing Medications: performs independently.Housework / Basic Home Maintenance: performs independently.Handling Transportation: performs independently.Preparing Meals: performs independently.Using the Telephone/ Communication Devices: performs independently.Falls Risk Screening:. ALEJANDRO has not fallen in the last 6 months.Home safety risk factors: none.Advance directives:. Advance Directives discussed, verbal or written information provided if indicated. Patient has living will. Patient has healthcare POA.Patient's End of Life Decisions: I agree to follow the patient's decisions.Patient is here today for MV and follow up on Pruritis that he was having last week.Pt had been having all pruritus. I had given him Pepcid and zyrtec and if that did not helped then I wanted him to take prednisone taper. Then blood sugars did increase, he had repeat bloodwork which showed blood sugar of 427, K 6, elevated lftsHe states that all this started after he had the injection to his foot. [facility] Work Phone: Summary Purpose Family History No Family History Records FoundUnknown Family Member Name Dates Details Family history of macular de generation: Mother(V19.19, Z83.518) Status:Active Type 2 diabetes mellitus wit h other circulatory complication: Mother, Father Status:Active Family history of hypertensi on: Mother, Father(V17.49, Z82.49) Status:Active Unknown Family Member Name Dates Details Family history of macular de generation: Mother(V19.19, Z83.518) Status:Active Type 2 diabetes mellitus wit h other circulatory complication: Mother, Father Status:Active Family history of hypertensi on: Mother, Father(V17.49, Z82.49) Status:Active Unknown Family Member Name Dates Details Family history of macular de generation: Mother(V19.19, Z83.518) Status:Active Type 2 diabetes mellitus wit h other circulatory complication: Mother, Father Status:Active Family history of hypertensi on: Mother, Father(V17.49, Z82.49) Status:Active Unknown Family Member Name Dates Details Type 2 diabetes mellitus wit h other circulatory complication: Mother, Father Status:Active Family history of hypertensi on: Mother, Father(V17.49, Z82.49) Status:Active Family history of macular de generation: Mother(V19.19, Z83.518) Status:Active Unknown Family Member Name Dates Details Family history of macular de generation: Mother(V19.19, Z83.518) Status:Active Type 2 diabetes mellitus wit h other circulatory complication: Mother, Father Status:Active Family history of hypertensi on: Mother, Father(V17.49, Z82.49) Status:Active Unknown Family Member Name Dates Details Family history of macular de generation: Mother(V19.19, Z83.518) Status:Active Type 2 diabetes mellitus wit h other circulatory complication: Mother, Father Status:Active Family history of hypertensi on: Mother, Father(V17.49, Z82.49) Status:Active Unknown Family Member Name Dates Details Family history of macular de generation: Mother(V19.19, Z83.518) Status:Active Type 2 diabetes mellitus wit h other circulatory complication: Mother, Father Status:Active Family history of hypertensi on: Mother, Father(V17.49, Z82.49) Status:Active Unknown Family Member Name Dates Details Type 2 diabetes mellitus wit h other circulatory complication: Mother, Father Status:Active Family history of hypertensi on: Mother, Father(V17.49, Z82.49) Status:Active Family history of macular de generation: Mother(V19.19, Z83.518) Status:Active Unknown Family Member Name Dates Details Type 2 diabetes mellitus wit h other circulatory complication: Mother, Father Status:Active Family history of hypertensi on: Mother, Father(V17.49, Z82.49) Status:Active Family history of macular de generation: Mother(V19.19, Z83.518) Status:Active Unknown Family Member Name Dates Details Family history of macular de generation: Mother(V19.19, Z83.518) Status:Active Type 2 diabetes mellitus wit h other circulatory complication: Mother, Father Status:Active Family history of hypertensi on: Mother, Father(V17.49, Z82.49) Status:Active Unknown Family Member Name Dates Details Family history of macular de generation: Mother(V19.19, Z83.518) Status:Active Type 2 diabetes mellitus wit h other circulatory complication: Mother, Father Status:Active Family history of hypertensi on: Mother, Father(V17.49, Z82.49) Status:Active Unknown Family Member Name Dates Details Family history of macular de generation: Mother(V19.19, Z83.518) Status:Active Type 2 diabetes mellitus wit h other circulatory complication: Mother, Father Status:Active Family history of hypertensi on: Mother, Father(V17.49, Z82.49) Status:Active Unknown Family Member Name Dates Details Type 2 diabetes mellitus wit h other circulatory complication: Mother, Father Status:Active Family history of hypertensi on: Mother, Father(V17.49, Z82.49) Status:Active Family history of macular de generation: Mother(V19.19, Z83.518) Status:Active Unknown Family Member Name Dates Details Family history of macular de generation: Mother(V19.19, Z83.518) Status:Active Family history of hypertensi on: Mother, Father(V17.49, Z82.49) Status:Active Type 2 diabetes mellitus wit h other circulatory complication: Mother, Father Status:Active Advance Directives No Advanced Directives Records FoundNo Advanced Directives Records FoundNo Advanced Directives Records FoundNo Advanced Directives Records FoundNo Advanced Directives Records FoundNo Advanced Directives Records Found Chief Complaint * 70 y/o male presents for follow lab results * Denies new complaints, Pt states he has been doing well * 70 y/o male presents for all over itchiness and rawness * Pt reports his entire body is itching * Started the Monday before * The only thing he changed was getting a Cortisone injection in his foot but that was in the beginning of the month * Pt states he did go to Urgent care but it was useless(hydroxyzine) * Pt states he has not slept since Monday night * Pt states the night the itching started his BS was a 395 * He remembers this happening 15-20 years ago when he was seeing Dr. Garcia 70 y/o male presents for Medicare wellness and to go over labs Additional Source Comments (unrecognized sect ion and content) No Status Records FoundNo Status Records FoundNo Status Records FoundNo Status Records FoundNo Status Records FoundNo Status Records Found INFORMATION SOURCE (unrecogn ized section and content) DATE CREATED AUTHOR 12/13/2018 [facility] DATE CREATED AUTHOR AUTHOR'S ORGANIZ ATION 05/10/2021 [facility] DATE CREATED AUTHOR AUTHOR'S ORGANIZ ATION 05/10/2021 [facility] DATE CREATED AUTHOR AUTHOR'S ORGANIZ ATION 06/01/[address] [facility] DATE CREATED AUTHOR AUTHOR'S ORGANIZ ATION 10/10/2021 [facility] DATE CREATED AUTHOR AUTHOR'S ORGANIZ ATION 12/24/2023 [facility] <item><item> Privacy Markings (unrecogniz ed section and content) Section Author: Cat Acosta PROHIBITION ON REDISCLOSURE OF CONFIDENTIAL INFORMATION This notice accompanies a disclosure of information concerning a client made to you with the consent of such client. Section Author: Cat Acosta PROHIBITION ON REDISCLOSURE OF CONFIDENTIAL INFORMATION This notice accompanies a disclosure of information concerning a client made to you with the consent of such client. FOR RECORDS PERTAINING TO PATIENTS WHO ARE OR HAVE BEEN ENROLLED IN A CHEMICAL DEPENDENCY/SUBSTANCEABUSE PROGRAM, SOME INFORMATION MAY BE OMITTED. This clinical summary was aggregated from multiple sources. Caution should be exercised in using it in the provision of clinical care. This summary normalizes information from multiple sources, and as a consequence, information in this document may materially change the coding, format and clinical context of patient data. In addition, data may be omitted in some cases. CLINICAL DECISIONS SHOULD BE BASED ON THE PRIMARY CLINICAL RECORDS. [employer] [facility]. provides no warranty or guarantee of the accuracy or completeness of information in this document.
[2024-02-14 12:42] LABS: Anion Gap 5 (5-15); BUN 43 mg/dL (7-18); BUN/Creat Ratio 19.6 RATIO (10-20); Calcium,Total 10.4 mg/dL (8.5-10.1); Chloride 108 mmol/L (98-107); Creatinine, Serum 2.19 mg/dL (0.70-1.30); EST Glomerular Filtration Rate 32 mL/min (>60); Est Glom Filt Rate - Afr Amer 38 mL/min (>60); Glucose 158 mg/dL (74-106); Potassium 5.4 mmol/L (3.5-5.1); Sodium Level 136 mmol/L (136-145)
[2024-02-14 12:47] LABS: Hemoglobin A1c 7.4 % (3.8-5.6)
== END | disposition home or self-care (01) ==
LOC: MFPLAB 10:37
PROVIDERS: PCP Family Medicine; Visit Provider Family Medicine
DX: N18.30 Chronic kidney disease, stage 3 unspecified (principal)
CPT/HCPCS: 36415; 80048; 83036

== ENCOUNTER → 2024-03-06 | Outpatient (CLI) | payer MEDICARE, OTHER, SELFPAY ==
[2024-03-06 12:21] LABS: Absolute Lymphocyte Count 0.91 X10^3/uL (0.83-4.51); Absolute Neutrophil Count 4.9 X10^3/uL (2.0-7.7); Basophil# 0.05 X10^3/uL; Basophil% 0.7 % (0-1); Eosinophils% 4.4 % (0-5); Hemoglobin 13.8 g/dL (13.0-16.5); Lymphocyte # 0.91 X10^3/ul (0.83-4.51); Lymphocyte % 13.5 % (19-41); Mean Corp Hgb Conc 33.7 g/dL (32-36); Mean Corpuscular Hgb 30.8 pg (27.0-32.0); Mean Corpuscular Volume 91.5 fL (80-94); Mean Platelet Vol. 11.6 fl (6.2-12.0); Monocyte# 0.58 X10^3/uL; Monocyte% 8.6 % (0-10); NRBC Flagged by Analyzer 0 % (0-5); Neutrophil % 72.5 % (47-70); Platelet Count 172 K/mm3 (150-450); RBC Distribution Width CV 11.9 % (11.6-14.6); Red Blood Count 4.48 M/mm3 (4.6-6.2); White Blood Count 6.8 K/mm3 (4.4-11.0)
[2024-03-06 12:50] LABS: ALB/GLOB Ratio 1.1 RATIO (0.9-2.4); AST(SGOT) 30 U/L (15-37); Alanine Aminotransfer ALT/SGPT 36 U/L (16-61); Alkaline Phosphatase 216 U/L (45-117); Anion Gap 5 (5-15); BUN 34 mg/dL (7-18); BUN/Creat Ratio 17.3 RATIO (10-20); Calcium,Total 9.9 mg/dL (8.5-10.1); Chloride 108 mmol/L (98-107); Cholesterol 140 mg/dL (200); Creatinine, Serum 1.96 mg/dL (0.70-1.30); EST Glomerular Filtration Rate 36 mL/min (>60); Est Glom Filt Rate - Afr Amer 44 mL/min (>60); Globulin 3.7 g/dL (2.2-4.2); Glucose 246 mg/dL (74-106); High Density Lipoprotein 45 mg/dL; Potassium 4.9 mmol/L (3.5-5.1); Protein, Total 7.7 g/dL (6.4-8.2); Sodium Level 139 mmol/L (136-145); Triglycerides 215 mg/dL; Very Low Density Lipoprotein 43 mg/dL (5-40)
[2024-03-06 13:46] LABS: Hemoglobin A1c 8.5 % (3.8-5.6)
== END | disposition home or self-care (01) ==
LOC: MFPLAB 09:38
PROVIDERS: PCP Family Medicine; Referring Provider Family Medicine; Visit Provider Family Medicine
DX: I10 Essential (primary) hypertension (principal); E11.9 Type 2 diabetes mellitus without complications
CPT/HCPCS: 36415; 80053; 80061; 83036; 85025

== ENCOUNTER → 2024-05-29 | Outpatient (CLI) | payer MEDICARE, OTHER, SELFPAY ==
[2024-05-29 13:09] LABS: Creatinine, Serum 2.12 mg/dL (0.70-1.30); EST Glomerular Filtration Rate 33 mL/min (>60); Est Glom Filt Rate - Afr Amer 40 mL/min (>60)
== END | disposition home or self-care (01) ==
LOC: MFPLAB 11:04
PROVIDERS: PCP Family Medicine; Referring Provider Family Medicine; Visit Provider Family Medicine
DX: N18.30 Chronic kidney disease, stage 3 unspecified (principal)
CPT/HCPCS: 36415; 82565

== ENCOUNTER → 2024-05-31 | Outpatient (CLI) | payer MEDICARE, OTHER, SELFPAY ==
[2024-05-31 13:11] LABS: Creatinine, Serum 2.04 mg/dL (0.70-1.30); EST Glomerular Filtration Rate 34 mL/min (>60); Est Glom Filt Rate - Afr Amer 42 mL/min (>60)
== END | disposition home or self-care (01) ==
LOC: MFPLAB 09:31
PROVIDERS: PCP Family Medicine; Referring Provider Family Medicine; Visit Provider Family Medicine
DX: N18.30 Chronic kidney disease, stage 3 unspecified (principal)
CPT/HCPCS: 36415; 82565

== ENCOUNTER → 2024-12-05 | Outpatient (CLI) | payer MEDICARE, OTHER, SELFPAY ==
[2024-12-05 12:50] LABS: Magnesium 2.0 mg/dL (1.5-2.2); Potassium 5.9 mmol/L (3.3-5.1)
== END | disposition home or self-care (01) ==
PROVIDERS: PCP Family Medicine; Referring Provider Family Medicine; Visit Provider Family Medicine
DX: E87.8 Other disorders of electrolyte and fluid balance, not elsewhere classified (principal); G62.9 Polyneuropathy, unspecified
CPT/HCPCS: 83735; 84132

== ENCOUNTER → 2025-02-12 | Outpatient (CLI) | payer MEDICARE, OTHER, SELFPAY ==
[2025-02-12 15:59] LABS: Anion Gap 12 (5-15); BUN 52 mg/dL (4-19); BUN/Creat Ratio 29.4 RATIO (10-20); Calcium,Total 10.2 mg/dL (7.6-11.0); Carbon Dioxide 16.6 mmol/L (21.0-32.0); Chloride 109 mmol/L (98-108); Glucose 95 mg/dL (70-99); Potassium 5.6 mmol/L (3.3-5.1)
== END | disposition home or self-care (01) ==
LOC: MFPLAB 11:35
PROVIDERS: PCP Family Medicine; Visit Provider Family Medicine
DX: I10 Essential (primary) hypertension (principal); E11.9 Type 2 diabetes mellitus without complications
CPT/HCPCS: 36415; 80048; 83036